=== PATIENT | female | born 1970 | race Caucasian/White ===

== ENCOUNTER 2020-12-09 14:31 | Outpatient (REF) | payer OTHER, SELFPAY ==
--- NOTE | ~2020-12-09 | XR_ITS ---
EXAMINATION: XR CHEST CLINICAL INFORMATION: Acute bronchitis. COMPARISON: None TECHNIQUE: 2 views of the chest were obtained. FINDINGS: No significant abnormality is noted involving the heart, lungs, mediastinum, bony thorax or soft tissues. XR/XR chest 2V IMPRESSION: Unremarkable examination.
== END 2020-12-09 14:32 | disposition home or self-care (01) ==
LOC: HO.XRAY 14:31
PROVIDERS: PCP Physician Assistant; Visit Provider Physician Assistant
DX: J20.9 Acute bronchitis, unspecified (principal)
CPT/HCPCS: 71046

== ENCOUNTER → 2021-11-03 14:39 | Outpatient (BNVA) | payer OTHER, SELFPAY | PROVIDERS: PCP Physician Assistant; Visit Provider Physician Assistant | DX: R11.0 Nausea (principal); K21.9 Gastro-esophageal reflux disease without esophagitis; Z79.899 Other long term (current) drug therapy | CPT/HCPCS: 99202 ==

== ENCOUNTER 2022-06-02 11:02 | Outpatient (REF) | payer OTHER, SELFPAY ==
[2022-06-02 12:25] LABS: Hematocrit 37.6 % (37.0-47.0); Hemoglobin 12.1 g/dl (12.0-16.0); Mean Corpuscular HGB Conc 32.2 g/dl (31.0-35.0); Mean Corpuscular Hemoglobin 26.5 pg (27.0-33.0); Mean Corpuscular Volume 82.3 fL (80.0-98.0); Mean Platelet Volume 9.4 fL (9.4-12.3); Platelet Count 426 X10*3/uL (160-400); Red Blood Count 4.57 X10*6/uL (4.20-5.50); Red Cell Distribution Width 14.5 % (11.0-16.0); White Blood Count 9.3 X10*3/uL (4.8-10.8)
[2022-06-02 12:37] LABS: Estimated Average Glucose 134 mg/dL; Hemoglobin A1c % 6.3 %
[2022-06-02 12:55] LABS: Creatinine Urine 139.49 mg/dL; Microalbum/Creatinine Ratio Ur 8.6 ug/mg cr
[2022-06-02 13:07] LABS: Erythrocyte Sedimentation Rate 8 MM/HR (0-20)
[2022-06-02 13:08] LABS: Alanine Aminotransferase 9 U/L (0-31); Albumin Level 4.1 g/dL (3.5-5.0); Alkaline Phosphatase 65 U/L (39-117); Anion Gap 15 (12-20); Aspartate Amino Transferase 15 U/L (5-31); Bilirubin Total 0.6 mg/dL (0.0-1.0); Blood Urea Nitrogen 39 mg/dL (9-16); Calcium 9.3 mg/dL (8.4-10.2); Carbon Dioxide 24 mmol/L (22-29); Chloride 105 mmol/L (96-108); Cholesterol 156 mg/dL; Estimated Glomerular Filt Rate 34; Glucose Fasting 150 mg/dL (60-99); HDL Cholesterol 47 mg/dL; LDL Cholesterol Calculated 94 mg/dl; Potassium 4.7 mmol/L (3.3-5.1); Sodium 139 mmol/L (135-145); Total Protein 6.5 g/dL (6.5-8.0); Triglycerides 77 mg/dL
[2022-06-02 13:14] LABS: TSH reflex Free T4 0.55 uIU/mL (0.32-4.0)
[2022-06-07 14:09] LABS: Transglutaminase Ab IgG <1.0 U/mL; Transglutaminase IgA <1.0 U/mL
== END 2022-06-02 11:03 | disposition home or self-care (01) ==
LOC: HO.LAB 11:02
PROVIDERS: PCP Physician Assistant; Visit Provider Physician Assistant
DX: E11.9 Type 2 diabetes mellitus without complications (principal); R10.2 Pelvic and perineal pain; K52.9 Noninfective gastroenteritis and colitis, unspecified; R14.0 Abdominal distension (gaseous)
CPT/HCPCS: 36415; 80053; 80061; 82043; 83036; 84443; 85027; 85652; 86364

== ENCOUNTER 2022-06-07 11:45 | Outpatient (REF) | payer OTHER, SELFPAY | END 2022-06-07 11:46 | disposition home or self-care (01) | LOC: HO.LNP 11:45 | PROVIDERS: Visit Provider Physician Assistant | DX: Z13.89 Encounter for screening for other disorder (principal) ==

== ENCOUNTER 2022-07-26 14:21 | Outpatient (REF) | payer OTHER, SELFPAY ==
[2022-07-26 16:43] LABS: Anion Gap 17 (12-20); Blood Urea Nitrogen 22 mg/dL (9-16); Calcium 9.9 mg/dL (8.4-10.2); Carbon Dioxide 23 mmol/L (22-29); Chloride 104 mmol/L (96-108); Estimated Glomerular Filt Rate 51; Glucose Random 127 mg/dL (60-115); Potassium 4.4 mmol/L (3.3-5.1); Sodium 140 mmol/L (135-145)
== END 2022-07-26 14:22 | disposition home or self-care (01) ==
LOC: HO.LAB 14:21
PROVIDERS: PCP Physician Assistant; Visit Provider Physician Assistant
DX: N17.9 Acute kidney failure, unspecified (principal)
CPT/HCPCS: 36415; 80048

== ENCOUNTER 2022-07-27 09:07 | Outpatient (REF) | payer OTHER, SELFPAY ==
--- NOTE | ~2022-07-27 | CT_ITS ---
EXAMINATION: CT ABDOMEN AND PELVIS WITH CONTRAST CLINICAL INFORMATION: Pelvic and perineal pain COMPARISON: Abdominal ultrasound September 2019 TECHNIQUE: Multidetector volumetric images were obtained from the superior aspect of the liver through the pubic symphysis following administration 85 mL of Omnipaque 350 intravenous contrast. Sagittal and coronal reformatted images were obtained on the technologist's workstation. Oral contrast: Yes This CT examination was performed using dose optimization techniques as appropriate, variously including the following: *Automated exposure control *Adjustment of mA and/or kV according to patient size (this includes techniques or standardized protocols for targeted exams where dose is matched to indication/reason for exam; i.e. extremities or head) *Use of iterative reconstruction technique DLP: 534 mGy-cm FINDINGS: LUNG BASES: The visualized lung bases are unremarkable. LIVER, GALLBLADDER, AND BILIARY TREE: The liver is normal in size, shape, and attenuation. No focal hepatic lesion or biliary ductal dilatation is present. The gallbladder has been removed. PANCREAS: Unremarkable. SPLEEN: Unremarkable. ADRENAL GLANDS: Unremarkable. KIDNEYS AND URETERS: The kidneys are normal in size, shape, and attenuation. No hydronephrosis, hydroureter, or calculi seen. No perinephric stranding. BLADDER: Not optimally distended. GASTROINTESTINAL TRACT: The small and large bowel are unremarkable. The appendix is not seen. No inflammatory changes in the right lower quadrant. ABDOMINAL WALL: No significant hernia is appreciated. LYMPH NODES: Normal. VASCULAR: Unremarkable. PELVIC VISCERA: Enhancing 2 cm intramural lesion in the posterior uterine body probably representing a fibroid. Uterus and adnexa are otherwise unremarkable. OSSEOUS STRUCTURES: Mild curvature of the lumbar spine. Degenerative changes of the spine and sacrum are iliac joints and left hip joint. CT/CT abdomen pelvis w IV con IMPRESSION: Probable posterior uterine body 2 cm fibroid. Fleischner guidelines were followed.
[2022-07-27] MEDS: iohexoL 350 MG/ML 100 ML INFUS..BTL 85 ML IV (12:24)
[2022-07-27] MEDS: Barium Sulfate Oral (Berry) 450 ML ORAL.SUSP 900 ML PO (12:25)
== END 2022-07-27 09:08 | disposition home or self-care (01) ==
LOC: HO.CT 09:07
PROVIDERS: PCP Physician Assistant; Visit Provider Physician Assistant
DX: R10.2 Pelvic and perineal pain (principal); K52.9 Noninfective gastroenteritis and colitis, unspecified
CPT/HCPCS: 74177; Q9967

== ENCOUNTER 2022-08-11 12:25 | Outpatient (REF) | payer OTHER, SELFPAY ==
--- NOTE | ~2022-08-11 | XR_ITS ---
EXAMINATION: XR LUMBOSACRAL SPINE CLINICAL INFORMATION: Abdominal pain COMPARISON: None available. TECHNIQUE: Three views of the lumbosacral spine. FINDINGS: A rounded radiopaque density overlies the left lower quadrant of the abdomen. This is not seen on the lateral images and may be external to the patient. Right upper quad surgical clips. No fracture or subluxation. Vertebral body height and alignment maintained. Mild disc space narrowing at L4-L5 with facet arthropathy at the lower lumbar spine. Mild sclerosis along the sacroiliac joints. The sacrum appears intact. Normal bowel gas pattern. XR/XR lumbar spine 2-3V IMPRESSION: 1. Mild degenerative changes of the lower lumbar spine. 2. Mild sclerosis along the sacroiliac joints. This could be associated with sacroiliitis.
== END 2022-08-11 12:26 | disposition home or self-care (01) ==
LOC: HO.HMGCX 12:25
PROVIDERS: PCP Physician Assistant; Visit Provider Nurse Practitioner Family
DX: R10.9 Unspecified abdominal pain (principal); M54.50 Low back pain, unspecified
CPT/HCPCS: 72100

== ENCOUNTER 2022-08-11 12:27 | Outpatient (REF) | payer OTHER, SELFPAY ==
[2022-08-11 14:37] LABS: Appearance Urine Cloudy; Color Urine Yellow; Glucose Urine UA Negative (Negative); Leukocyte Esterase Urine Negative (Negative); Nitrite Urine Negative (Negative); Urine Blood Negative (Negative); Urine Ketones Negative (Negative); Urine Protein Negative (Neg-Trace)
== END 2022-08-11 12:28 | disposition home or self-care (01) ==
LOC: HO.LAB 12:27
PROVIDERS: Visit Provider Nurse Practitioner Family
DX: R10.9 Unspecified abdominal pain (principal); M54.50 Low back pain, unspecified
CPT/HCPCS: 81003

== ENCOUNTER → 2022-09-07 09:09 | Outpatient (BNVA) | payer OTHER, SELFPAY | PROVIDERS: PCP Physician Assistant; Visit Provider Anesthesiology | DX: M54.50 Low back pain, unspecified (principal); M53.3 Sacrococcygeal disorders, not elsewhere classified; M47.816 Spondylosis without myelopathy or radiculopathy, lumbar region; M41.56 Other secondary scoliosis, lumbar region | CPT/HCPCS: 99202 ==

== ENCOUNTER 2022-09-26 12:12 | Day surgery (SDC) | payer OTHER, SELFPAY ==
[2022-09-26 12:25] VITALS: BP 155/87; PULSE 97; RESP 16; TEMP 36.7; O2SAT 98; BMI 34.3
[2022-09-26] MEDS: Lactated Ringers 1,000 ML 100 ML IVCONT (12:36)
[2022-09-26 12:47] LABS: Glucose, Whole Blood 162 mg/dL (60-115)
--- NOTE | 2022-09-26 12:51 | MHC.SHP ---
Pre-Procedural Eval Section A Date of Service: 09/26/22 The patient is an INPATIENT: No The History & Physical has been completed within 30 days and I have reviewed it.: No Section B Chief Complaint: screening, GERD Relevant Family History (Specify if Yes): No Relevant Social History: Tobacco Use Present Medications: see Short Stay Collaborative assessment Medical History: Significant History (GERD, DM, Hypertension, PTSD) History of Previous Operations: Relevant previous surgery/procedure and date(s) (Hx of cholecystectomy) Allergies: Allergies Allergy/AdvReac Type Severity Reaction Status Date / Time amoxicillin [AMOXICILLIN] Allergy Severe Anaphylaxis Verified 09/26/22 12:41 aspirin [ASA] Allergy Severe RASH/FEVER/ Verified 09/26/22 12:41 VOMITING latex [LATEX] Allergy Severe Rash Verified 09/26/22 12:41 Penicillins [PENICILLINS] Allergy Severe Anaphylaxis Verified 09/26/22 12:41 sulfamethoxazole Allergy Severe Hives Verified 09/26/22 12:41 [From BACTRIM] trimethoprim [From BACTRIM] Allergy Severe Hives Verified 09/26/22 12:41 meloxicam AdvReac Intermediate GI side Verified 09/26/22 12:37 effects Review of Systems Sugical H&P ROS: Negative: Constitution, Cardiovascular, Respiratory and Gastrointestinal Exam Surgical H&P Exam: Normal: Heart, Normal: Lungs, Normal: Extremities and Normal: Abdomen Plan Diagnosis/Plan: Unchanged I have reviewed the history and physical and performed a pertinent physical examination on my patient. No changes have occurred unless specified. Time Spent With Patient Time: Total time managing care of this patient today ____ minutes.
--- NOTE | 2022-09-26 13:00 | P.CONAN_ITS ---
[facility] Active Problems Active Problems: All Active Problems (Updated 09/07/22 @ 09:49 by Reese Kwan MD) Dermatitis (Acute) Diabetes (Acute) HTN (hypertension) (Acute) PTSD (post-traumatic stress disorder) (Acute) DMII (diabetes mellitus, type 2) (Acute) Acute bronchitis (Acute) Tinea unguium (Acute) Herpes zoster (Acute) MDD (major depressive disorder), recurrent episode, moderate (Acute) JOSE ARMANDO (generalized anxiety disorder) (Acute) Obese (Acute) Left shoulder pain (Acute) Nausea (Acute) GERD (gastroesophageal reflux disease) (Acute) Bronchitis (Acute) Colon cancer screening (Acute) Perioral numbness (Acute) Jaw swelling (Acute) Chronic diarrhea (Acute) Pelvic pain (Acute) Dysphagia (Acute) MINNIE (acute kidney injury) (Acute) Flank pain (Acute) Lower back pain (Acute) Low back pain (Acute) Sacroiliac joint dysfunction of right side (Acute) Spondylosis without myelopathy or radiculopathy, lumbar region (Acute) Scoliosis of lumbar region due to degenerative disease of spine in adult (Acute) Atypical chest pain (Acute) Past Medical History Medical History (Updated 09/07/22 @ 09:49 by Reese Kwan MD) Atypical chest pain Sacroiliitis Family History Family History Father Hypertension Mother Diabetes Other Mental health disorder Family history of problems with anesthesia: No Surgical History Surgical History (Updated 09/26/22 @ 12:40 by Minna Bell) History of appendectomy Hx of cholecystectomy Tubal ligation status History of Problems with Anesthesia: No Social History Social History Housing: Apartment Alcohol intake: current Alcohol intake frequency: former alcohol drinker Patient Tobacco Use Status: Former Tobacco user Tobacco use type: Cigarette e-Cigarette/Vaping Use: Never Used Second Hand Smoke Exposure: No Use of substances other than those prescribed or required for medical reasons: Yes Substance Use Frequency: Occasionally Are you DNR?: No Advance Directives: No Advance Directives Information Provided: Yes Advance Directives on File: No service: No Current occupational status: disabled Cognitive needs: No Hearing needs: No Vision needs: Yes Meds Allergies Allergy/AdvReac Type Severity Reaction Status Date / Time amoxicillin [AMOXICILLIN] Allergy Severe Anaphylaxis Verified 09/26/22 12:41 aspirin [ASA] Allergy Severe RASH/FEVER/ Verified 09/26/22 12:41 VOMITING latex [LATEX] Allergy Severe Rash Verified 09/26/22 12:41 Penicillins [PENICILLINS] Allergy Severe Anaphylaxis Verified 09/26/22 12:41 sulfamethoxazole Allergy Severe Hives Verified 09/26/22 12:41 [From BACTRIM] trimethoprim [From BACTRIM] Allergy Severe Hives Verified 09/26/22 12:41 meloxicam AdvReac Intermediate GI side Verified 09/26/22 12:37 effects Active Medications: Current Medications Lactated Ringer's (Lr) 1,000 mls @ 100 mls/hr IVCONT .Q10H DWIGHT Last Admin: 09/26/22 12:36 Dose: 100 mls/hr Exam Exam Date and Time: September 26, 2022 1300 Height,Weight and Vital Signs: Height 4 ft 11 in Weight 77.111 kg Last Vital Signs Temp 98.1 F 09/26/22 12:25 Pulse 97 09/26/22 12:25 Resp 16 09/26/22 12:25 BP 155/87 H 09/26/22 12:25 Pulse Ox 98 09/26/22 12:25 O2 Del Method Room Air 09/26/22 12:25 Pertinent Lab Results Pertinent Lab Results: Laboratory Tests 09/26/22 12:35 POC Glucose 162 H Airway Mallampati Class: II TM Dist: >3cm Neck ROM: Full Heart: rrr Lungs: cta Assessment and Plan Assessment Anesthesia Assessment: Anesthesia Plan Discussed and Chart Reviewed Final Anesthetic Review Family History of Problems with Anesthesia: No History of Problems with Anesthesia: No NPO: Yes ASA Class: III Final Preanesthetic Review: No Changes in Pt Med Stat, Meds/Allgs Chart Reviewed and Consent Obtained/Reviewed Patient Risk: Intermediate Procedure Risk: Intermediate Anesthetic Plan Anesthetic Plan: MAC: and Neuraxial Block: Disposition: Standard PACU
--- NOTE | 2022-09-26 13:42 | W.PM.OPN ---
Operative Note Operative Note Date of Service: 09/26/22 Narrative: FLEXIBLE TRANSORAL UPPER GASTROINTESTINAL ENDOSCOPY WITH BIOPSIES AND COLONOSCOPY TILL CECUM WITH SNARE POLYPECTOMY Pre-op diagnosis: GERD, Gastritis Post-op diagnosis: GERD, gastritis, colon polyp, diverticulosis, hemorrhoids? Endoscopist:? Jeremiah Osorio MD Anesthesia:?MAC UPPER ENDOSCOPY Consent: Indications for the procedure and potential complications of bleeding, perforation, reaction to medications and missed diagnosis were discussed with the patient and informed consent was obtained. Instrument: Olympus GIF H 190 mid size upper endoscope Monitoring: Vital signs and clinical assessment, continuous EKG monitoring, Pulse oximetry, Carbon Dioxide monitoring and blood pressure monitoring were done throughout the procedure. Procedure: The patient was placed in the left lateral decubitis position and pre-procedure medications were administered and a bite block was placed. The endoscope was inserted into the mouth and advanced under direct vision to the third part of duodenum. A careful inspection was made as the upper endoscope was withdrawn including a retroflexed examination of the proximal stomach; Findings and interventions are described below. Findings: Larynx: Normal Esophagus: GE junction at 38 cms, Mild focal esophagitis at GE junction. Stomach: Mild gastric erythema. Biopsies were obtained. Grade 2 flap valve on retroflexed examination of the cardia. Duodenum: Normal bulb and descending duodenum. Biopsies were obtained from 3rd part of the duodenum to check for celiac sprue Intervention: Biopsies as noted above COLONOSCOPY PROCEDURE NOTE Consent: Indications for the procedure and potential complications of bleeding, perforation, reaction to medications and missed diagnosis were discussed with the patient and informed consent was obtained. Instrument: Olympus PCF H 190 L variable stiffness pediatric colonoscope Monitoring: Vital signs and clinical assessment, intermittent blood pressure monitoring, continuous EKG monitoring, Pulse oximetry and Carbon Dioxide monitoring were done throughout the procedure. Colon withdrawl time was 13 minutes. Procedure: The patient was placed in the left lateral decubitis position and pre-procedure medications were administered. After a digital rectal examination of the ano-rectum, the video colonoscope was inserted into the rectum and advanced through the colon to the cecum. The colonoscope was slowly withdrawn in a retrograde panoramic fashion and the colon mucosa was carefully examined including a retroflexed view of the rectum. Findings and interventions are described below. Procedure Difficulty: : Without difficulty Findings: Terminal Ileum: Not evaluated Cecum: Normal Ascending Colon: A 9-10 mm sessile polyp -removed with a cold snare Transverse Colon: Normal Descending Colon: Normal Sigmoid Colon: Moderate diverticulosis Rectum: A 2 cms sessile polyp in the distal rectum from 2 to 4 cms - removed with a hot snare. Ano-rectum: Moderate internal hemorrhoids Colon preparation: Good after some irrigation Impression and Post Procedure Diagnosis: Endoscopy Findings: ESOPHAGUS: Mild focal esophagitis at GE junction. STOMACH: Gastritis DUODENUM: Normal - biopsied to check for celiac sprue Colonoscopy Findings: Two medium sized polyps removed Random biopsies were obtained from right and left colon to check for microscopic colitis Moderate diverticulosis seen in the sigmoid colon Small hemorrhoids on retroflexed exam. Plan: Await pathology results Patient has an appointment on 10/11/22 in the GI Clinic with ABDIAZIZ Bonilla . Repeat Colonoscopy interval based on path results - in 3 years if polyps are adenomatous and 10 years if polyps are hyperplastic. Above findings were reviewed with the patient and colon polyps and diverticulosis handouts were given in the discharge area BIOPSIES SHOWED: A.? Small bowel, biopsy:? Small bowel mucosa within normal limits; preserved villous architecture and no increased intraepithelial lymphocytes seen.? B.? Stomach, antrum, biopsy:? Gastric antral mucosa with reactive gastropathy; negative for Helicobacter pylori, intestinal metaplasia and dysplasia. C.? Colon, right side, biopsy:? Colonic mucosa within normal limits; negative for active, chronic or microscopic colitis.? D.? Colon, ascending, polypectomy:? Tubular adenoma; negative for high-grade dysplasia.? E.? Colon, left side, biopsy:? Colonic mucosa within normal limits; negative for active, chronic or microscopic colitis.? F.? Rectum, polypectomy:? Tubular adenoma, completely excised; negative for high-grade dysplasia.
[2022-09-26 14:40] VITALS: BP 114/62; PULSE 84; RESP 16; TEMP 36.3; O2SAT 98
[2022-09-26 14:55] VITALS: BP 142/78; PULSE 78; RESP 18; TEMP 37; O2SAT 99
== END 2022-09-26 15:47 | disposition home or self-care (01) ==
PROVIDERS: PCP Physician Assistant; Visit Provider Internal Medicine Gastroenterology
PROC: (CPT 45380; principal; 2022-09-26 13:30)
DX: Z12.11 Encounter for screening for malignant neoplasm of colon (principal); D12.2 Benign neoplasm of ascending colon; D12.8 Benign neoplasm of rectum; K29.70 Gastritis, unspecified, without bleeding; K57.30 Diverticulosis of large intestine without perforation or abscess without bleeding; K64.8 Other hemorrhoids; K21.9 Gastro-esophageal reflux disease without esophagitis; R11.0 Nausea; E11.9 Type 2 diabetes mellitus without complications; I10 Essential (primary) hypertension; F17.210 Nicotine dependence, cigarettes, uncomplicated; Z90.49 Acquired absence of other specified parts of digestive tract; Z79.84 Long term (current) use of oral hypoglycemic drugs
CPT/HCPCS: 45380; 45385; 82947; 88305; 88342; J2250

== ENCOUNTER → 2022-09-26 12:12 | Outpatient (BNV) | payer OTHER, SELFPAY | PROVIDERS: PCP Physician Assistant; Visit Provider Internal Medicine Gastroenterology | DX: K21.9 Gastro-esophageal reflux disease without esophagitis (principal); K29.70 Gastritis, unspecified, without bleeding | CPT/HCPCS: 43239; 45385 ==

== ENCOUNTER 2022-11-01 11:02 | Outpatient (AMB) | payer OTHER, SELFPAY ==
--- NOTE | 2022-11-01 11:04 | MHC.OFFVIS ---
Intake Vital Signs 11/01/22 11:16 Height 4 ft 11 in Weight 174 lb BMI 35.1 BP 94/55 L Blood Pressure Location Lt brachial Position Sitting Pulse 96 Intake Visit Reasons: S/P double Intake Note: Patient follow up for lab, Colonoscopy and EGD results. Patient denies any GI issues. Hand Hardener Required: No Accompanied by: Self / Same As Patient Allergies amoxicillin [AMOXICILLIN] Allergy (Severe, Verified 11/01/22 11:04) Anaphylaxis aspirin [ASA] Allergy (Severe, Verified 11/01/22 11:04) RASH/FEVER/VOMITING latex [LATEX] Allergy (Severe, Verified 11/01/22 11:04) Rash Penicillins [PENICILLINS] Allergy (Severe, Verified 11/01/22 11:04) Anaphylaxis sulfamethoxazole [From BACTRIM] Allergy (Severe, Verified 11/01/22 11:04) Hives trimethoprim [From BACTRIM] Allergy (Severe, Verified 11/01/22 11:04) Hives meloxicam Adverse Reaction (Intermediate, Verified 11/01/22 11:04) GI side effects Medication List - Last Reconciled 11/01/22 by Donna Stanley PA-C atorvastatin 40 mg PO DAILY blood sugar diagnostic (FreeStyle Lite Strips) 1 strip miscellaneous BID 30 days cholestyramine-aspartame 4 gram (Cholestyramine Light) 4 grams PO TID 30 days clonidine HCl 0.1 mg PO BID cyclobenzaprine 10 mg PO TID PRN lancets (FreeStyle Lancets) once per day lisinopril-hydrochlorothiazide 20-12.5 mg 1 tab PO DAILY metformin 500 mg PO BID 90 days ondansetron HCl 4 mg PO Q8H 7 days pioglitazone 15 mg PO DAILY quetiapine 25 mg PO DAILY quetiapine 100 mg PO BEDTIME tizanidine 2 mg PO Q8H 30 days HPI HPI Comments History of Present Illness Details A 52-year-old female follows up after recent EGD colonoscopy with Dr. Osorio tolerated procedures well Appetite is good, she is not taking anything for acid reflux her symptoms have completely resolved.- bowels are normal, she had had loose stool she thinks may be from metformin she is now taking cholestyramine with very good response Review procedure report and pathology No nausea, vomiting, hematemesis, hematochezia fever to [facility] Medical History (Updated 11/01/22 @ 11:41 by Donna Stanley PA-C) Atypical chest pain Sacroiliitis Surgical History History of appendectomy History of esophagogastroduodenoscopy (EGD) Hx of cholecystectomy Hx of colonoscopy Tubal ligation status Family History Father Hypertension Mother Diabetes Other Mental health disorder Social History Housing: Apartment Alcohol intake: current Alcohol intake frequency: former alcohol drinker Patient Tobacco Use Status: Former Tobacco user Tobacco use type: Cigarette e-Cigarette/Vaping Use: Never Used Second Hand Smoke Exposure: No service: No Current occupational status: disabled Cognitive needs: No Hearing needs: No Vision needs: Yes Review of Systems Const All systems reviewed & are unremarkable except as noted in HPI and below Card Denies chest pain and Denies dyspnea Resp Denies dyspnea Physical Exam Vital Signs: Last Vital Signs Pulse 96 11/01/22 11:16 BP 94/55 L 11/01/22 11:16 BMI result Body Mass Index 35.1 Const General: cooperative, healthy appearing, comfortable, no acute distress and anxious Orientation/consciousness: patient oriented x3 Limitations: no limitations Eyes Sclerae: sclerae normal Resp Effort & Inspection: normal respiratory effort and able to speak in complete sentences Auscultation: clear to auscultation bilaterally Cardio Rate: regular rate Rhythm: regular rhythm Heart sounds: S1 normal heart sound present and S2 normal heart sound present GI Palpation (GI): Soft to palpation and nontender Auscultation: normal bowel sounds Skin General skin exam: no rashes or lesions noted Neuro General: patient oriented x3 Extrem General: Yes full ROM Psych Mental Status: mental status grossly normal Speech and movement: Clear speech present Affect: normal affect Attitude: cooperative Thought process: Normal thought process present Thought content: Normal thought content present Insight: Good insight present (Psych) Judgement: Good judgement present (Psych) Results Reviewed Results Reviewed: indings: Terminal Ileum: Not evaluated Cecum:? Normal Ascending Colon:??A 9-10 mm sessile polyp -removed with a cold snare Transverse Colon:??Normal Descending Colon:? Normal Sigmoid Colon:??Moderate diverticulosis Rectum:??A 2 cms sessile polyp in the distal rectum from 2 to 4 cms - removed with a hot snare. Ano-rectum:??Moderate internal hemorrhoids Colon preparation:? Good after some irrigation Impression and Post Procedure Diagnosis: ? ? Endoscopy Findings: ESOPHAGUS: Mild focal esophagitis at GE junction. STOMACH: Gastritis DUODENUM: Normal - biopsied to check for celiac sprue Colonoscopy Findings: Two medium sized polyps removed Random biopsies were obtained from right and left colon to check for microscopic colitis Moderate diverticulosis seen in the sigmoid colon Small hemorrhoids on retroflexed exam. Plan: Await pathology results Patient has an appointment on 10/11/22 in the GI Clinic with ABDIAZIZ Bonilla . Repeat Colonoscopy interval based on path results - in 3 years if polyps are adenomatous and 10 years if polyps are hyperplastic. Above findings were reviewed with the patient and colon polyps and diverticulosis handouts were given in the discharge area BIOPSIES SHOWED: A.? Small bowel, biopsy:? Small bowel mucosa within normal limits; preserved villous architecture and no increased intraepithelial lymphocytes seen.? B.? Stomach, antrum, biopsy:? Gastric antral mucosa with reactive gastropathy; negative for Helicobacter pylori, intestinal metaplasia and dysplasia. C.? Colon, right side, biopsy:? Colonic mucosa within normal limits; negative for active, chronic or microscopic colitis.? D.? Colon, ascending, polypectomy:? Tubular adenoma; negative for high-grade dysplasia.? E.? Colon, left side, biopsy:? Colonic mucosa within normal limits; negative for active, chronic or microscopic colitis.? F.? Rectum, polypectomy:? Tubular adenoma, completely excised; negative for high-grade dysplasia. Assessment & Plan Assessment & Plan (1) Tubular adenoma of colon: Code(s): D12.6 - Benign neoplasm of colon, unspecified Plan: Repeat asymptomatic colonoscopy 3 years (2) Diverticular disease: Comment: Educate diverticulosis/diverticulitis Code(s): K57.90 - Diverticulosis of intestine, part unspecified, without perforation or abscess without bleeding Plan: Diverticulosis/diverticulitis ER protocol (3) Hemorrhoids: Code(s): K64.9 - Unspecified hemorrhoids Plan: Maintain high-fiber diet avoid straining Patient Instructions: Asymptomatic colonoscopy 3 years-for adenomas colon polyp All first-degree relatives should begin screening at age 40 Avoid straining with hemorrhoids, maintain high-fiber diet-literature given Diverticulosis/diverticulitis ER protocol discussed Continue usual medication Coding Level of Care Code Est Pt Level 3 (47864) Diagnoses Tubular adenoma of colon D12.6 Diverticular disease K57.90 Hemorrhoids K64.9 Time Spent (min) 30
[2022-11-01 11:16] VITALS: BP 94/55; PULSE 96; BMI 35.1
== END 2022-11-01 11:31 | disposition home or self-care (01) ==
LOC: HO.HGIW 11:02
PROVIDERS: PCP Physician Assistant; Visit Provider Physician Assistant
DX: D12.6 Benign neoplasm of colon, unspecified (principal); K57.90 Diverticulosis of intestine, part unspecified, without perforation or abscess without bleeding; K64.9 Unspecified hemorrhoids
CPT/HCPCS: 99213

== ENCOUNTER → 2022-11-01 11:02 | Outpatient (BNVA) | payer OTHER, SELFPAY | PROVIDERS: PCP Physician Assistant; Visit Provider Physician Assistant | DX: K57.90 Diverticulosis of intestine, part unspecified, without perforation or abscess without bleeding (principal); K64.9 Unspecified hemorrhoids; D12.6 Benign neoplasm of colon, unspecified | CPT/HCPCS: 99212 ==

== ENCOUNTER 2022-12-20 13:14 | Outpatient (AMB) | payer OTHER, SELFPAY ==
--- NOTE | 2022-12-20 13:16 | MHC.OFFVIS ---
Intake Vital Signs 12/20/22 13:17 Height 4 ft 11 in Weight 174 lb BMI 35.1 BP 124/61 Blood Pressure Location Lt brachial Position Sitting Pulse 91 Intake Visit Reasons: pt req appointment Intake Note: Patient follow up for swallowing problem Patient cc: acid reflex, abdominal pain on and off, and some swallowing problems. Orthopedics Pediatric Physician Required: No Accompanied by: Self / Same As Patient Allergies amoxicillin [AMOXICILLIN] Allergy (Severe, Verified 12/20/22 13:15) Anaphylaxis aspirin [ASA] Allergy (Severe, Verified 12/20/22 13:15) RASH/FEVER/VOMITING latex [LATEX] Allergy (Severe, Verified 12/20/22 13:15) Rash Penicillins [PENICILLINS] Allergy (Severe, Verified 12/20/22 13:15) Anaphylaxis sulfamethoxazole [From BACTRIM] Allergy (Severe, Verified 12/20/22 13:15) Hives trimethoprim [From BACTRIM] Allergy (Severe, Verified 12/20/22 13:15) Hives meloxicam Adverse Reaction (Intermediate, Verified 12/20/22 13:15) GI side effects Medication List - Last Reconciled 12/20/22 by Donna Stanley PA-C atorvastatin 40 mg PO DAILY blood sugar diagnostic (FreeStyle Lite Strips) 1 strip miscellaneous BID 30 days cholestyramine-aspartame 4 gram (Cholestyramine Light) 4 grams PO TID 30 days clonidine HCl 0.1 mg PO BID cyclobenzaprine 10 mg PO TID PRN lancets (FreeStyle Lancets) once per day lisinopril-hydrochlorothiazide 20-12.5 mg 1 tab PO DAILY metformin 500 mg PO BID 90 days ondansetron HCl 4 mg PO Q8H 7 days pioglitazone 15 mg PO DAILY quetiapine 25 mg PO DAILY quetiapine 100 mg PO BEDTIME tizanidine 2 mg PO Q8H 30 days HPI HPI Comments History of Present Illness Details 52-year-old female here to follow-up after going to emergency room with abdominal pain-entire belly. Admitted at [facility]- 11/22/22-she had a colonoscopy- was told she had something that was now fixed- I was in so much pain Look not trying to give you a hard time but Im having a bad day all the information is in my paperwork- I dont have with me I am hopeless She went into details of frustrating encounters- with housing- no family support. Appetite is ok Bowels are fine Was given medicine - a powder- Last seen October 2022 after having EGD colonoscopy in 09/2022 [facility] Medical History Sacroiliitis Atypical chest pain Surgical History History of esophagogastroduodenoscopy (EGD) Hx of colonoscopy Tubal ligation status History of appendectomy Hx of cholecystectomy Family History Father Hypertension Mother Diabetes Other Mental health disorder Social History Housing: Apartment Alcohol intake: current Alcohol intake frequency: former alcohol drinker Patient Tobacco Use Status: Former Tobacco user Tobacco use type: Cigarette e-Cigarette/Vaping Use: Never Used Second Hand Smoke Exposure: No service: No Current occupational status: disabled Cognitive needs: No Hearing needs: No Vision needs: Yes Review of Systems Const All systems reviewed & are unremarkable except as noted in HPI and below Denies chills and Denies fever(s) Card Denies chest pain and Denies dyspnea Resp Denies dyspnea GI Denies abdominal pain, Denies heartburn and Denies vomiting Musc Reports back pain Psych Reports anxiety, Reports depression, Reports irritability, Denies homicidal ideation and Denies suicidal ideation Physical Exam Vital Signs: Last Vital Signs Pulse 91 12/20/22 13:17 BP 124/61 12/20/22 13:17 BMI result Body Mass Index 35.1 Const General: anxious Nutritional Appearance: overweight Orientation/consciousness: patient oriented x3 Eyes Sclerae: sclerae normal Resp Effort & Inspection: normal respiratory effort and able to speak in complete sentences Neuro General: patient oriented x3 Extrem General: Yes full ROM Psych Speech and movement: Pressured speech present Affect: Anxious affect present and Irritable affect present Thought content: suicidality and no homicidality Results Reviewed Results Reviewed: 11/22/22- [facility] Abdominal CT 1. Findings highly suspicious for early small-bowel obstruction or ileus secondary to terminal ileus 2. Small volume abdominal pelvic ascites 3. Intrahepatic biliary ductal dilation with normal caliber common bile duct could be due to post cholecystectomy state. If the patient has obstructive biochemical pattern follow-up with MRCP may be considered. 09/26/2022- Impression and Post Procedure Diagnosis: ? ? Endoscopy Findings: ESOPHAGUS: Mild focal esophagitis at GE junction. STOMACH: Gastritis DUODENUM: Normal - biopsied to check for celiac sprue Colonoscopy Findings: Two medium sized polyps removed Random biopsies were obtained from right and left colon to check for microscopic colitis Moderate diverticulosis seen in the sigmoid colon Small hemorrhoids on retroflexed exam. Plan: Await pathology results Patient has an appointment on 10/11/22 in the GI Clinic with ABDIAZIZ Bonilla . Repeat Colonoscopy interval based on path results - in 3 years if polyps are adenomatous and 10 years if polyps are hyperplastic. Above findings were reviewed with the patient and colon polyps and diverticulosis handouts were given in the discharge area BIOPSIES SHOWED: A.? Small bowel, biopsy:? Small bowel mucosa within normal limits; preserved villous architecture and no increased intraepithelial lymphocytes seen.? B.? Stomach, antrum, biopsy:? Gastric antral mucosa with reactive gastropathy; negative for Helicobacter pylori, intestinal metaplasia and dysplasia. C.? Colon, right side, biopsy:? Colonic mucosa within normal limits; negative for active, chronic or microscopic colitis.? D.? Colon, ascending, polypectomy:? Tubular adenoma; negative for high-grade dysplasia.? E.? Colon, left side, biopsy:? Colonic mucosa within normal limits; negative for active, chronic or microscopic colitis.? F.? Rectum, polypectomy:? Tubular adenoma, completely excised; negative for high-grade dysplasia. Assessment & Plan Assessment & Plan (1) Hospital discharge follow-up: Comment: Completely asymptomatic-no GI concerns-unsure of what testing she had completed Noted CT, not sure anything to follow Hospital course is unclear, no record for reference will attempt to get them reviewed discharge note Consulted with Vj Patel-the Community Health Worker Code(s): Z09 - Encounter for follow-up examination after completed treatment for conditions other than malignant neoplasm Plan: Will follow-up had a later time. Discussed -need for assistance Escorted to Vj Patel-as his expertise will serve her well (2) Homeless: Comment: Patient seen after hospital discharge for abdominal pain she was unable to focus on visit She reportedly asymptomatic Reviewing discharge note patient is not interested in any further follow-up at this time Consulted with check Patel community health worker Code(s): Z59.00 - Homelessness unspecified Plan: She will be connected with [facility] at her PCP office Plan Will reschedule patient appointment Need records from [facility] Patient Instructions: A 52-year-old female follows up after recent hospital admission at [facility] for abdominal pain She reports did may had a colonoscopy that was normal range, reviewed hospital note Unable to complete visit today will have her follow-up. Coding Level of Care Code Est Pt Level 4 (41976) Diagnoses Hospital discharge follow-up Z09 Homeless Z59.00 Time Spent (min) 50
[2022-12-20 13:17] VITALS: BP 124/61; PULSE 91; BMI 35.1
== END 2022-12-21 13:13 | disposition home or self-care (01) ==
LOC: HO.HGIW 13:15
PROVIDERS: PCP Physician Assistant; Visit Provider Physician Assistant
DX: Z09 Encounter for follow-up examination after completed treatment for conditions other than malignant neoplasm (principal); Z59.00 Homelessness unspecified
CPT/HCPCS: 99214

== ENCOUNTER → 2022-12-20 13:14 | Outpatient (BNVA) | payer OTHER, SELFPAY | PROVIDERS: PCP Physician Assistant; Visit Provider Physician Assistant | DX: Z09 Encounter for follow-up examination after completed treatment for conditions other than malignant neoplasm (principal); Z59.00 Homelessness unspecified | CPT/HCPCS: 99212 ==

== ENCOUNTER 2023-02-22 13:28 | Outpatient (AMB) | payer OTHER, SELFPAY ==
[2023-02-22 13:39] VITALS: BP 102/70; PULSE 117; RESP 17; O2SAT 98; BMI 37.2
--- NOTE | 2023-02-22 13:39 | MHC.PC.OV ---
Vital Signs 02/22/23 13:39 Height 4 ft 11 in Weight 184 lb 4 oz BMI 37.2 BP 102/70 Blood Pressure Location Lt brachial Position Sitting Respiration 17 Pulse 117 H Pulse Source Pulse Oximeter Pulse Oximetry (%) 98 Oxygen Delivery Method Room Air Int[place] [facility] [place] Intake Note: Patient is here for hospital discharge follow up. Patient was discharged from [facility] on 11/26/22. Sales Order Specialist Required: No Accompanied by: Self / Same As Patient Allergies amoxicillin [AMOXICILLIN] Allergy (Severe, Verified 02/22/23 14:00) Anaphylaxis aspirin [ASA] Allergy (Severe, Verified 02/22/23 14:00) RASH/FEVER/VOMITING latex [LATEX] Allergy (Severe, Verified 02/22/23 14:00) Rash Penicillins [PENICILLINS] Allergy (Severe, Verified 02/22/23 14:00) Anaphylaxis sulfamethoxazole [From BACTRIM] Allergy (Severe, Verified 02/22/23 14:00) Hives trimethoprim [From BACTRIM] Allergy (Severe, Verified 02/22/23 14:00) Hives meloxicam Adverse Reaction (Intermediate, Verified 02/22/23 14:00) GI side effects Medication List - Last Reconciled 02/22/23 by Cristofer Walker PA-C atorvastatin 40 mg PO DAILY blood sugar diagnostic (FreeStyle Lite Strips) 1 strip miscellaneous BID 30 days clonidine HCl 0.1 mg PO BID cyclobenzaprine 10 mg PO TID PRN lancets (FreeStyle Lancets) once per day lisinopril-hydrochlorothiazide 20-12.5 mg 1 tab PO DAILY metformin 500 mg PO BID 90 days ondansetron HCl 4 mg PO Q8H 7 days pioglitazone 15 mg PO DAILY quetiapine 25 mg PO DAILY quetiapine 100 mg PO BEDTIME tizanidine 2 mg PO Q8H 30 days Tobacco use date assessed: 06/02/22 Dental Screening Dental Screen Date: 02/22/23 Did you have a dental visit in the last 12 months?: Yes Did you have a dental problem in the last 6 months where you did not have access to dental care?: No Was dental information given to patient?: Patient has dentist [place] [facility] [place] HPI Details Patient is a 52 y/o F for a follow-up visit. ? Pmhx significant for DM II, HLD, Type 2 DM, , obesity, bipolar type 2 disorder, history of polysubstance abuse. Recently underwent colonoscopy and, multiple polyps found a tubular normal repeat 3 years. She did have a SBO in november 2022. Abdominal pain much better now ?. ? .. ? Diabetes type 2:? Today's A1c is 6 9. Has gained weight since last office visit .? Continues on metformin and pioglitazone with good effect. . Patient reports she is compliant with her medication. Has not gotten her A1c checked in quite a while. .. : Obesity: Patient does understand her BMI is over 30 will work on being more physically active and adapting to better eating habits to reduce her weight ? .. ? Bipolar disorder: Patient is followed by a therapist and a psychiatrist and believes her mood is somewhat stable though still is making med adjustments with her psychiatrist. [facility] Medical History Sacroiliitis Atypical chest pain Surgical History History of esophagogastroduodenoscopy (EGD) Hx of colonoscopy Tubal ligation status History of appendectomy Hx of cholecystectomy Family History Father Hypertension Mother Diabetes Other Mental health disorder Social History Housing: Apartment Alcohol intake: current Alcohol intake frequency: former alcohol drinker Patient Tobacco Use Status: Former Tobacco user Tobacco use type: Cigarette e-Cigarette/Vaping Use: Never Used Second Hand Smoke Exposure: No service: No Current occupational status: disabled Cognitive needs: No Hearing needs: No Vision needs: Yes Questionnaire Thrive Questionnaire Date Thrive assessed: 06/02/22 JOSE ARMANDO-7 AMB Questionnaire JOSE ARMANDO-7 Date JOSE ARMANDO - 7 assessed: 06/02/22 Source: Developed by Drs. Uri Lugo, Ewelina Eric, Pantera Alcala and colleagues, with an educational durga from [employer] Review of Systems Const Denies headache(s) Eyes Denies loss of vision ENT Denies vertigo, Denies dizziness, Denies headache(s) and Denies sore throat Card Denies chest pain, Denies leg edema and Denies lightheadedness Resp Denies cough, Denies hemoptysis and Denies wheezing GI Denies abdominal pain, Denies melena, Denies constipation, Denies diarrhea and Denies vomiting Denies urinary frequency, Denies dysuria and Denies urinary urgency Musc Denies arthralgias, Denies joint swelling, Denies numbness and Denies tingling Neuro Denies Abnormal speech present, Denies behavioral changes, Denies vertigo, Denies dizziness, Denies headache(s), Denies loss of vision, Denies memory loss, Denies numbness and Denies tingling Psych Denies anxiety, Denies behavioral changes, Denies depression, Denies memory loss and Denies panic attacks Tarun/Lymph Denies easy bleeding and Denies easy bruising Aller/Immun Denies wheezing Physical exam (Primary Care) Vital Signs: Last Vital Signs Pulse 117 H 02/22/23 13:39 Resp 17 02/22/23 13:39 BP 102/70 02/22/23 13:39 Pulse Ox 98 02/22/23 13:39 Oxygen Delivery Method Room Air 02/22/23 13:39 BMI result Body Mass Index 37.2 Tobacco/Smoking Status: Tobacco use Status Tobacco use date assessed 06/02/22 02/22/23 13:45 Patient Tobacco Use Status Former Tobacco user 02/22/23 13:45 Tobacco use type Cigarette 02/22/23 13:45 e-Cigarette/Vaping Use Never Used 02/22/23 13:45 Thrive Assessment: Date of Thrive Assessment Date Thrive assessed 06/02/22 02/22/23 13:45 Const General: healthy appearing, no acute distress, alert and awake Nutritional Appearance: well nourished Orientation/consciousness: oriented to person, oriented to place and oriented to time HENMT Ears: TM's normal bilaterally General nose exam: Normal nasal mucous membranes and turbinates present Eyes Conjunctivae: conjunctivae normal Sclerae: sclerae normal Pupils: Equal, round and reactive pupils present Neck Neck: Yes no lymphadenopathy and Yes no JVD Thyroid: Thyroid normal Carotids: no bruits Resp Effort & Inspection: normal respiratory effort and not tachypneic Auscultation: no crackles, no rales, no rhonchi and no wheezes Cardio Rate: regular rate Rhythm: regular rhythm Heart sounds: no murmurs and normal S1 and S2 GI Palpation (GI): Soft to palpation, nontender, no hepatomegaly and no splenomegaly Auscultation: normal bowel sounds Skin General skin exam: no rashes or lesions noted and dry skin Neuro General: oriented to person, oriented to place and oriented to time Cranial nerves: Yes Equal, round and reactive pupils present Speech: No Abnormal speech present Gait exam (Neuro): Normal gait present Motor exam (neuro): no tremor noted Extrem Right upper extremity: full ROM Left upper extremity: full ROM Right lower extremity: full ROM; no edema Left lower extremity: full ROM; no edema Psych Mental Status: mental status grossly normal Speech and movement: Normal speech and movement present Affect: normal affect Attitude: cooperative Thought process: Normal thought process present Results AMB Hemoglobin A1c AMB Hemoglobin A1c 6.9 % Last Edit by SHANNON Calvillo on 02/22/23 13:48 Results Reviewed Results Reviewed: Laboratory Last Values Hgb A1c (Clinic) 6.9 % (4.0-6.0) H 02/22/23 13:32 Assessment and Plan Assessment & Plan (1) DMII (diabetes mellitus, type 2): Code(s): E11.9 - Type 2 diabetes mellitus without complications Qualifiers: Diabetes mellitus joint terminal attack controller insulin use: without joint terminal attack controller use Diabetes mellitus complication status: without complication Qualified Code(s): E11.9 - Type 2 diabetes mellitus without complications Plan: Patient's type 2 diabetes previously well controlled. todays A1c- 6.9. Continues on metformin and pioglitazone. Goal A1c is to remain below 7.0. (2) HTN (hypertension): Code(s): I10 - Essential (primary) hypertension Qualifiers: Hypertension type: essential hypertension Qualified Code(s): I10 - Essential (primary) hypertension Plan: Patient's blood pressure acceptable today in office will continue her current dose of antihypertensive medication with goal blood pressure to be below 140/90 (3) Obese: Code(s): E66.9 - Obesity, unspecified Qualifiers: Obesity type: due to excess calories Obesity classification: adult class 2 (BMI 35 - 39.9) Serious obesity comorbidity presence: with serious comorbidity Body mass index: BMI 37.0-37.9 Qualified Code(s): E66.01 - Morbid (severe) obesity due to excess calories; Z68.37 - Body mass index [BMI] 37.0-37.9, adult Plan: Patient does understand her BMI is over 30 will work on being more physically active and adapting to better eating habits to reduce her weight. (4) MDD (major depressive disorder), recurrent episode, moderate: Code(s): F33.1 - Major depressive disorder, recurrent, moderate Plan: Patient continues to speak with a mental therapist and sees a psychiatrist whom manages her mental health medication. She feels stable for mental health point of view. Orders: Orders Comprehensive [place]. Panel Fast Today E11.9 - Type 2 diabetes mellitus without complications Complete Blood Count no Diff Today E11.9 - Type 2 diabetes mellitus without complications Microalbumin, Random (w Creat) Today I10 - Essential (primary) hypertension PT Evaluation and Treatment Today M54.50 - Low back pain, unspecified AMB Hemoglobin A1c Today E11.9 - Type 2 diabetes mellitus without complications Lipid Panel Today E11.9 - Type 2 diabetes mellitus without complications Medications: Changed From blood sugar diagnostic (FreeStyle Lite Strips) 1 strip miscellaneous BID 30 days 200 strips 3RF E11.9 - Type 2 diabetes mellitus without complications To blood sugar diagnostic (FreeStyle Lite Strips) 1 strip miscellaneous DAILY 90 days 100 strips 3RF E11.9 - Type 2 diabetes mellitus without complications Refilled lancets (FreeStyle Lancets) once per day 100 ea 3RF E11.9 - Type 2 diabetes mellitus without complications Discontinued cholestyramine-aspartame 4 gram (Cholestyramine Light) administer w/meal; avoid other meds within 1hr before or 4-6hr after dose Discontinued Reason: Doctor's Order 4 grams PO TID 30 days 239.4 grams 0RF K52.9 - Noninfective gastroenteritis and colitis, unspecified Coding Level of Care Code Est Pt Level 4 (77537) Diagnoses Type 2 diabetes mellitus without complication, without long-term current use of insulin E11.9 Diabetes mellitus joint terminal attack controller insulin use: without long-term use Diabetes mellitus complication status: without complication Essential hypertension I10 Hypertension type: essential hypertension Class 2 severe obesity due to excess calories with serious comorbidity and body mass index (BMI) of 37.0 to 37.9 in adult E66.01; Z68.37 Obesity type: due to excess calories Obesity classification: adult class 2 (BMI 35 - 39.9) Serious obesity comorbidity presence: with serious comorbidity Body mass index: BMI 37.0-37.9 MDD (major depressive disorder), recurrent episode, moderate F33.1
== END 2023-02-22 14:12 | disposition home or self-care (01) ==
PROVIDERS: PCP Physician Assistant; Visit Provider Physician Assistant
DX: E11.9 Type 2 diabetes mellitus without complications (principal); E66.01 Morbid (severe) obesity due to excess calories; Z68.37 Body mass index [BMI] 37.0-37.9, adult; F33.1 Major depressive disorder, recurrent, moderate; I10 Essential (primary) hypertension
CPT/HCPCS: 83036; 99214

== ENCOUNTER 2023-04-05 09:55 | Outpatient (AMB) | payer OTHER, SELFPAY ==
--- NOTE | 2023-04-05 11:11 | AM.OFFWIN_ITS ---
Intake Vital Signs 04/05/23 11:13 Height 4 ft 11 in Weight 184 lb BMI 37.2 BP 110/70 Blood Pressure Location Lt brachial Position Sitting Pulse 80 Pulse Source Pulse Oximeter Temp 98.0 F Temp Source Temporal Artery Scan Pulse Oximetry (%) 97 Intake Visit Reasons: EP problems swallowing masked in lobby Intake Note: pt is here for c.o swallowing and states it was coming back up after drinking and eating food and states she was having bad heart burn Patient Tobacco Use Status: Former Tobacco user Allergies amoxicillin [AMOXICILLIN] Allergy (Severe, Verified 04/05/23 11:47) Anaphylaxis aspirin [ASA] Allergy (Severe, Verified 04/05/23 11:47) RASH/FEVER/VOMITING latex [LATEX] Allergy (Severe, Verified 04/05/23 11:47) Rash Penicillins [PENICILLINS] Allergy (Severe, Verified 04/05/23 11:47) Anaphylaxis sulfamethoxazole [From BACTRIM] Allergy (Severe, Verified 04/05/23 11:47) Hives trimethoprim [From BACTRIM] Allergy (Severe, Verified 04/05/23 11:47) Hives meloxicam Adverse Reaction (Intermediate, Verified 04/05/23 11:47) GI side effects Medication List - Last Reconciled 04/05/23 by Amilcar Cuellar MD acetaminophen 500 mg PO Q6H 7 days atorvastatin 40 mg PO DAILY blood sugar diagnostic (OneTouch Ultra Test strips) As directed once per day blood-glucose meter (OneTouch Ultra2 Meter kit) As directed clonidine HCl 0.1 mg PO BID cyclobenzaprine 10 mg PO TID PRN lancets (OneTouch UltraSoft 2 Lancet) As directed once per day lisinopril-hydrochlorothiazide 20-12.5 mg 1 tab PO DAILY metformin 500 mg PO BID 90 days pioglitazone 15 mg PO DAILY quetiapine 25 mg PO DAILY quetiapine 100 mg PO BEDTIME tizanidine 2 mg PO Q8H 30 days Do you need a note to return to daycare/school/sports/work: Yes HPI EP problems swallowing masked in lobby HPI Details 52 yr old female presents to the office for a sick visit. Patient is reporting sx of difficulty swallowing for the past three days. She had complained of this in the past and a swallowing eval (done when?, where?) was reported normal. Recently was diagnosed with Covid. No vomiting, fever or chills. No weight loss. PFSH Medical History Sacroiliitis Atypical chest pain Surgical History History of esophagogastroduodenoscopy (EGD) Hx of colonoscopy Tubal ligation status History of appendectomy Hx of cholecystectomy Family History Father Hypertension Mother Diabetes Other Mental health disorder Social History Housing: Apartment Alcohol intake: current Alcohol intake frequency: former alcohol drinker Patient Tobacco Use Status: Former Tobacco user Tobacco use type: Cigarette e-Cigarette/Vaping Use: Never Used Second Hand Smoke Exposure: No service: No Current occupational status: disabled Cognitive needs: No Hearing needs: No Vision needs: Yes Physical Exam Vital Signs: Last Vital Signs Temp 98.0 F 04/05/23 11:13 Pulse 80 04/05/23 11:13 BP 110/70 04/05/23 11:13 Pulse Ox 97 04/05/23 11:13 BMI result Body Mass Index 37.2 Const General: cooperative and healthy appearing Nutritional Appearance: well nourished Orientation/consciousness: patient oriented x3 Limitations: no limitations HEENT Head: Yes normal to inspection Eyes General: appearance normal, both eyes and all related structures Neck Neck: Yes normal visual inspection Chest Chest palpation & inspection: normal palpation of entire chest wall Resp Effort & Inspection: normal respiratory effort Neuro General: patient oriented x3 Results AMB Rapid Strep AMB Rapid Strep Negative Last Edit by Sergio Kan CMA on 04/05/23 11 :21 Results Reviewed Results Reviewed: Laboratory Last Values Strep Scn Rapid Clinic Negative 04/05/23 11:21 Assessment & Plan Assessment & Plan (1) GERD (gastroesophageal reflux disease): Code(s): K21.9 - Gastro-esophageal reflux disease without esophagitis Qualifiers: Esophagitis presence: without esophagitis Qualified Code(s): K21.9 - Gastro-esophageal reflux disease without esophagitis Plan: Pantoprazole called in. If sx not better, to follow up here. Orders: Orders AMB Rapid Strep Screen Today Z13.9 - Encounter for screening, unspecified Coding Level of Care Code Est Pt Level 3 (46747) Diagnoses Gastroesophageal reflux disease without esophagitis K21.9 Esophagitis presence: without esophagitis
[2023-04-05 11:13] VITALS: BP 110/70; PULSE 80; TEMP 36.7; O2SAT 97; BMI 37.2
== END 2023-04-05 12:06 | disposition home or self-care (01) ==
PROVIDERS: PCP Physician Assistant; Visit Provider Internal Medicine
DX: K21.9 Gastro-esophageal reflux disease without esophagitis (principal); R13.10 Dysphagia, unspecified
CPT/HCPCS: 87880; 99213

== ENCOUNTER 2023-05-08 13:00 | Outpatient (RCR) | payer OTHER, SELFPAY ==
[2023-04-18 13:02] VITALS: BP 130/84; PULSE 105; O2SAT 98
== END 2023-09-04 07:22 | disposition home or self-care (01) ==
LOC: HO.PTWFD 13:00
PROVIDERS: PCP Physician Assistant; Visit Provider Physician Assistant
DX: M54.50 Low back pain, unspecified (principal)
CPT/HCPCS: 97110; 97163

== ENCOUNTER 2023-05-25 14:01 | Outpatient (AMB) | payer OTHER, SELFPAY ==
--- NOTE | 2023-05-25 14:49 | A.OFFPC_ITS ---
Vital Signs 05/25/23 14:50 Height 4 ft 11 in Weight 182 lb 4 oz BMI 36.8 BP 104/66 Blood Pressure Location Lt brachial Position Sitting Respiration 16 Pulse 88 Pulse Source Pulse Oximeter Pulse Oximetry (%) 98 Oxygen Delivery Method Room Air Intake Visit Reasons: f/u DMII Intake Note: The patient is here for a follow-up on Type 2 Diabetes. Pt last A1C check[facility], revealed a reading of 6.6% Bonded Strand Operator Required: No Accompanied by: Self / Same As Patient Allergies amoxicillin [AMOXICILLIN] Allergy (Severe, Verified 05/25/23 15:13) Anaphylaxis aspirin [ASA] Allergy (Severe, Verified 05/25/23 15:13) RASH/FEVER/VOMITING latex [LATEX] Allergy (Severe, Verified 05/25/23 15:13) Rash Penicillins [PENICILLINS] Allergy (Severe, Verified 05/25/23 15:13) Anaphylaxis sulfamethoxazole [From BACTRIM] Allergy (Severe, Verified 05/25/23 15:13) Hives trimethoprim [From BACTRIM] Allergy (Severe, Verified 05/25/23 15:13) Hives meloxicam Adverse Reaction (Intermediate, Verified 05/25/23 15:13) GI side effects Medication List - Last Reviewed 05/25/23 by SHANNON Calvillo acetaminophen 500 mg PO Q6H 7 days atorvastatin 40 mg PO DAILY blood sugar diagnostic (OneTouch Ultra Test strips) As directed once per day blood-glucose meter (OneTouch Ultra2 Meter kit) As directed clonidine HCl 0.1 mg PO BID cyclobenzaprine 10 mg PO TID PRN lancets (Acacia InteractiveTouch UltraSoft 2 Lancet) As directed once per day lisinopril-hydrochlorothiazide 20-12.5 mg 1 tab PO DAILY metformin 500 mg PO BID 90 days pantoprazole 40 mg PO DAILY pioglitazone 15 mg PO DAILY polyethylene glycol 3350 grams PO quetiapine 25 mg PO DAILY quetiapine 100 mg PO BEDTIME tizanidine 2 mg PO Q8H 30 days Tobacco use date assessed: 05/25/23 Dental Screening Dental Screen Date: 05/25/23 Did you have a dental visit in the last 12 months?: Yes Did you have a dental problem in the last 6 months where you did not have access to dental care?: No Was dental information given to patient?: Patient has dentist HPI f/u DMII HPI Details Patient is a 52 y/o F for a follow-up visit. ? Pmhx significant for DM II, HLD, Type 2 DM, , obesity, bipolar type 2 disorder, history of polysubstance abuse. ?. ? .. ? Diabetes type 2:? Most recent A1c is 6.6 Has gained weight since last office visit. reports her random blood sugar are 240s .? Continues on metformin and pioglitazo ne with good effect. . Patient reports she is compliant with her medication. Has not gotten her A1c checked in quite a while. .. : Obesity: Patient does understand her BMI is over 30 will work on being more physically active and adapting to better eating habits to reduce her weight ? .. ? Bipolar disorder: Patient is followed by a therapist and a psychiatrist and believes her mood is somewhat stable though still is making med adjustments with her psychiatrist. [facility] Medical History Sacroiliitis Atypical chest pain Surgical History History of esophagogastroduodenoscopy (EGD) Hx of colonoscopy Tubal ligation status History of appendectomy Hx of cholecystectomy Family History Father Hypertension Mother Diabetes Other Mental health disorder Social History Housing: Apartment Alcohol intake: current Alcohol intake frequency: former alcohol drinker Patient Tobacco Use Status: Former Tobacco user Tobacco use type: Cigarette e-Cigarette/Vaping Use: Never Used Second Hand Smoke Exposure: No service: No Current occupational status: disabled Cognitive needs: No Hearing needs: No Vision needs: Yes Questionnaire PHQ-9 Over the last 2 weeks, how often have you been bothered by any of the following problems? 1. Little interest or pleasure in doing things: more than half the days 2. Feeling down, depressed, or hopeless: more than half the days 3. Trouble falling or staying asleep, or sleeping too much: several days 4. Feeling tired or having little energy: not at all 5. Poor appetite or overeating: several days 6. Feeling bad about yourself - or that you are a failure or have let yourself or your family down: more than half the days 7. Trouble concentrating on things, such as reading the newspaper or watching television: not at all 8. Moving or speaking so slowly that other people could have noticed. Or the opposite - being so fidgety or restless that you have been moving around a lot more than usual: more than half the days 9. Thoughts that you would be better off or of hurting yourself in some way: not at all Total score: 10 Depression Screening Interpretation: Positive Depression Screening Follow-up: Existing condition Depression Screening Done: Yes 58142 - PHQ-9 Billing: Yes Source: Developed by Drs. Uri Lugo, Ewelina Eric, Pantera Alcala and colleagues, with an educational durga from [employer]. Thrive Questionnaire Date Thrive assessed: 05/25/23 I am a: Patient What is your living situation today?: I have a steady place to live Within the past 12 months, did the food you bought not last and you didn't have the money to get more?: Never true Within the past 12 months, did you worry whether your food would run out before you got money to buy more?: Never true Do you have trouble paying for medicines?: No Do you have trouble getting transportation to medical appointments?: No Do you have trouble paying your heating and electricity bill?: No Do you have trouble taking care of your child, family member or friend?: No Do you have trouble with day-to-day activities such as bathing, preparing meals, shopping, managing finances, etc.?: No Are you currently unemployed and looking for a job?: No Are you interested in more education?: No Please select the resources that you would like help with: None Currently or been in a relationship where the following occur: no concerns reported THRIVE Score: 0 AUDIT C Alcohol Use Questionnaire (AUDIT-C) 1. How often do you have a drink containing alcohol?: Never 3. How often do you have six or more drinks on one occasion?: Never Total Score: 0 JOSE ARMANDO-7 AMB Questionnaire JOSE ARMANDO-7 Date JOSE ARMANDO - 7 assessed: 05/25/23 Feeling nervous, anxious, or on edge: 0 = Not at all Not being able to stop or control worryin = Not at all Worrying too much about different things: 0 = Not at all Trouble relaxin = Not at all Being so restless that it is hard to sit still: 0 = Not at all Becoming easily annoyed or irritable: 0 = Not at all Feeling afraid as if something awful might happen: 0 = Not at all Total JOSE ARMANDO-7 score (0-4 normal; 5-9 mild; 10-14 moderate; 15-21 severe): 0 Source: Developed by Drs. Uri Lugo, Ewelina Eric, Pantera Alcala and colleagues, with an educational durga from [employer]. JOSE ARMANDO-7 Assessment Billing JOSE ARMANDO-7 Assessment Tool: JOSE ARMANDO-7 Assessment [id number] PHQ-2/PHQ-9 PHQ-2 Over the last 2 weeks, how often have you been bothered by any of the following problems? 1. Little interest or pleasure in doing things: more than half the days 2. Feeling down, depressed, or hopeless: more than half the days Total score: 4 If score is 3 or greater, continue 3. Trouble falling or staying asleep, or sleeping too much: several days 4. Feeling tired or having little energy: not at all 5. Poor appetite or overeating: several days 6. Feeling bad about yourself - or that you are a failure or have let yourself or your family down: more than half the days 7. Trouble concentrating on things, such as reading the newspaper or watching television: not at all 8. Moving or speaking so slowly that other people could have noticed. Or the opposite - being so fidgety or restless that you have been moving around a lot more than usual: more than half the days 9. Thoughts that you would be better off or of hurting yourself in some way: not at all Total score: 10 0-4 None-Minimal, 5-9 Mild, 10-14 Moderate, 15-19 Moderately Severe, 20-27 Severe Source: Developed by Drs. Uri Lugo, Ewelina Eric, Pantera Alcala and colleagues, with an educational durga from [employer]. Review of Systems Const Denies headache(s) Eyes Denies loss of vision ENT Denies vertigo, Denies dizziness, Denies headache(s) and Denies sore throat Card Denies chest pain, Denies leg edema and Denies lightheadedness Resp Denies cough, Denies hemoptysis and Denies wheezing GI Denies abdominal pain, Denies melena, Denies constipation, Denies diarrhea and Denies vomiting Denies urinary frequency, Denies dysuria and Denies urinary urgency Musc Denies arthralgias, Denies joint swelling, Denies numbness and Denies tingling Neuro Denies Abnormal speech present, Denies behavioral changes, Denies vertigo, Denies dizziness, Denies headache(s), Denies loss of vision, Denies memory loss, Denies numbness and Denies tingling Psych Denies anxiety, Denies behavioral changes, Denies depression, Denies memory loss and Denies panic attacks Tarun/Lymph Denies easy bleeding and Denies easy bruising Aller/Immun Denies wheezing Physical exam (Primary Care) Vital Signs: Last Vital Signs Pulse 88 05/25/23 14:50 Resp 16 05/25/23 14:50 BP 104/66 05/25/23 14:50 Pulse Ox 98 05/25/23 14:50 Oxygen Delivery Method Room Air 05/25/23 14:50 BMI result Body Mass Index 36.8 Tobacco/Smoking Status: Tobacco use Status Tobacco use date assessed 05/25/23 05/25/23 14:57 Patient Tobacco Use Status Former Tobacco user 05/25/23 14:49 Tobacco use type Cigarette 05/25/23 14:49 e-Cigarette/Vaping Use Never Used 05/25/23 14:49 PHQ-9: PHQ-9 Score PHQ-9: Total score 10 05/25/23 15:09 Depression Screening Interpretation: Positive Depression Screening Follow-up: Existing condition Thrive Assessment: Date of Thrive Assessment Date Thrive assessed 05/25/23 05/25/23 14:57 Currently or been in a relationship where the following occur: no concerns reported Const General: healthy appearing, no acute distress, alert and awake Nutritional Appearance: well nourished Orientation/consciousness: oriented to person, oriented to place and oriented to time HENMT Ears: TM's normal bilaterally General nose exam: Normal nasal mucous membranes and turbinates present Eyes Conjunctivae: conjunctivae normal Sclerae: sclerae normal Pupils: Equal, round and reactive pupils present Neck Neck: Yes no lymphadenopathy and Yes no JVD Thyroid: Thyroid normal Carotids: no bruits Resp Effort & Inspection: normal respiratory effort and not tachypneic Auscultation: no crackles, no rales, no rhonchi and no wheezes Cardio Rate: regular rate Rhythm: regular rhythm Heart sounds: no murmurs and normal S1 and S2 GI Palpation (GI): Soft to palpation, nontender, no hepatomegaly and no splenomegaly Auscultation: normal bowel sounds Skin General skin exam: no rashes or lesions noted and dry skin Neuro General: oriented to person, oriented to place and oriented to time Cranial nerves: Yes Equal, round and reactive pupils present Speech: No Abnormal speech present Gait exam (Neuro): Normal gait present Motor exam (neuro): no tremor noted Extrem Right upper extremity: full ROM Left upper extremity: full ROM Right lower extremity: full ROM; no edema Left lower extremity: full ROM; no edema Psych Mental Status: mental status grossly normal Speech and movement: Normal speech and movement present Affect: normal affect Attitude: cooperative Thought process: Normal thought process present Assessment and Plan Assessment & Plan (1) DMII (diabetes mellitus, type 2): Code(s): E11.9 - Type 2 diabetes mellitus without complications Qualifiers: Diabetes mellitus long term acute care registered nurse insulin use: without custodial use Diabetes mellitus complication status: without complication Qualified Code(s): E11.9 - Type 2 diabetes mellitus without complications Plan: Patient's type 2 diabetes previously well controlled. She reports her home nurse did A1c on her recently was 6.6.. Continues on metformin and pioglitazone. Goal A1c is to remain below 7.0. (2) HTN (hypertension): Code(s): I10 - Essential (primary) hypertension Qualifiers: Hypertension type: essential hypertension Qualified Code(s): I10 - Essential (primary) hypertension Plan: Patient's blood pressure acceptable today in office will continue her current dose of antihypertensive medication with goal blood pressure to be below 140/90 (3) Obese: Code(s): E66.9 - Obesity, unspecified Qualifiers: Obesity type: due to excess calories Obesity classification: adult class 2 (BMI 35 - 39.9) Serious obesity comorbidity presence: with serious comorbidity Body mass index: BMI 37.0-37.9 Qualified Code(s): E66.01 - Morbid (severe) obesity due to excess calories; Z68.37 - Body mass index [BMI] 37.0- 37.9, adult Plan: Patient does understand her BMI is over 30 will work on being more physically active and adapting to better eating habits to reduce her weight. (4) MDD (major depressive disorder), recurrent episode, moderate: Code(s): F33.1 - Major depressive disorder, recurrent, moderate Plan: Patient's PHQ-9 score positive for depression which has been existing condition for her. Patient continues to speak with a mental therapist and sees a psychiatrist whom manages her mental health medication. She feels stable for mental health point of view. (5) Lower back pain: Code(s): M54.50 - Low back pain, unspecified Qualifiers: Back pain laterality: midline Chronicity: chronic Sciatica presence: without sciatica Qualified Code(s): M54.50 - Low back pain, unspecified; G89.29 - Other chronic pain Plan: She has been doing physical therapy which she reports helped her lower back. She does use tizanidine 3 times a day. Advised to hold cyclobenzaprine (6) GERD (gastroesophageal reflux disease): Code(s): K21.9 - Gastro-esophageal reflux disease without esophagitis Qualifiers: Esophagitis presence: without esophagitis Qualified Code(s): K21.9 - Gastro-esophageal reflux disease without esophagitis Plan: Was recently seen at the walk-in clinic and was diagnosed with GERD. Was started on pantoprazole which she reports really helps. Will send in script of pantoprazole. Medications: New cholestyramine-aspartame 4 gram (Cholestyramine Light) administer w/meal; avoid other meds within 1hr before or 4-6hr after dose 4 grams PO DAILY PRN 60 ea 0RF diarrhea flare 30 days K52.9 - Noninfective gastroenteritis and colitis, unspecified Changed From pantoprazole 40 mg PO DAILY 14 tabs 1RF K21.9 - Gastro-esophageal reflux disease without esophagitis To pantoprazole 40 mg PO DAILY 90 tabs 1RF 90 days K21.9 - Gastro-esophageal reflux disease without esophagitis Refilled blood sugar diagnostic (INSOM[employer]uch Ultra Test strips) As directed once per day 100 ea 3RF E11.9 - Type 2 diabetes mellitus without complications tizanidine 2 mg PO Q8H 90 tabs 6RF 30 days Discontinued cyclobenzaprine Discontinued Reason: Doctor's Order 10 mg PO TID PRN 30 tabs 0RF muscle spasm Coding Level of Care Code Est Pt Level 4 (27951) Diagnoses Type 2 diabetes mellitus without complication, without long-term current use of insulin E11.9 Diabetes mellitus custodial insulin use: without long term acute care registered nurse use Diabetes mellitus complication status: without complication Essential hypertension I10 Hypertension type: essential hypertension Class 2 severe obesity due to excess calories with serious comorbidity and body mass index (BMI) of 37.0 to 37.9 in adult E66.01; Z68.37 Obesity type: due to excess calories Obesity classification: adult class 2 (BMI 35 - 39.9) Serious obesity comorbidity presence: with serious comorbidity Body mass index: BMI 37.0-37.9 MDD (major depressive disorder), recurrent episode, moderate F33.1 Chronic midline low back pain without sciatica M54.50; G89.29 Back pain laterality: midline Chronicity: chronic Sciatica presence: without sciatica Gastroesophageal reflux disease without esophagitis K21.9 Esophagitis presence: without esophagitis Additional Codes JOSE ARMANDO-7 Assessment Billing - JOSE ARMANDO-7 Assessment Tool: JOSE ARMANDO-7 Assessment [id number] ([id number])
[2023-05-25 14:50] VITALS: BP 104/66; PULSE 88; RESP 16; O2SAT 98; BMI 36.8
== END 2023-05-25 15:26 | disposition home or self-care (01) ==
PROVIDERS: PCP Physician Assistant; Visit Provider Physician Assistant
DX: E11.9 Type 2 diabetes mellitus without complications (principal); E66.01 Morbid (severe) obesity due to excess calories; F33.1 Major depressive disorder, recurrent, moderate; Z68.37 Body mass index [BMI] 37.0-37.9, adult; Z68.36 Body mass index [BMI] 36.0-36.9, adult; I10 Essential (primary) hypertension; M54.50 Low back pain, unspecified; G89.29 Other chronic pain; K21.9 Gastro-esophageal reflux disease without esophagitis
CPT/HCPCS: 99214

== ENCOUNTER 2023-09-22 12:59 | Outpatient (AMB) | payer OTHER, SELFPAY ==
[2023-09-22 13:00] VITALS: BP 104/68; PULSE 85; O2SAT 96; BMI 37.8
--- NOTE | 2023-09-22 13:00 | MHC.PC.OV ---
Vital Signs 09/22/23 13:00 Height 4 ft 11 in Weight 187 lb 0.2 oz BMI 37.8 BP 104/68 Blood Pressure Location Lt brachial Position Sitting Pulse 85 Pulse Source Pulse Oximeter Pulse Oximetry (%) 96 Oxygen Delivery Method Room Air Intake Visit Reasons: [facility] 7.8 Intake Note: Patient is here for hospital discharge follow up. Patient was discharged from [hospital name] on [date]. Allergies amoxicillin [AMOXICILLIN] Allergy (Severe, Verified 05/25/23 15:13) Anaphylaxis aspirin [ASA] Allergy (Severe, Verified 05/25/23 15:13) RASH/FEVER/VOMITING latex [LATEX] Allergy (Severe, Verified 05/25/23 15:13) Rash Penicillins [PENICILLINS] Allergy (Severe, Verified 05/25/23 15:13) Anaphylaxis sulfamethoxazole [From BACTRIM] Allergy (Severe, Verified 05/25/23 15:13) Hives trimethoprim [From BACTRIM] Allergy (Severe, Verified 05/25/23 15:13) Hives meloxicam Adverse Reaction (Intermediate, Verified 05/25/23 15:13) GI side effects Medication List - Last Reconciled 09/22/23 by Catina Morgan PA-C acetaminophen 500 mg PO Q6H 7 days amlodipine 5 mg PO DAILY apixaban (Eliquis) 5 mg PO BID atorvastatin 40 mg PO DAILY benztropine 0.5 mg PO DAILY blood sugar diagnostic ([employer] Ultra Test strips) As directed once per day blood-glucose meter ([employer] Ultra2 Meter kit) As directed cholestyramine-aspartame 4 gram (Cholestyramine Light) 4 grams PO DAILY PRN 30 days clonidine HCl 0.1 mg PO BID furosemide 20 mg PO BID 10 days lancets ([employer] UltraSoft 2 Lancet) As directed once per day lisinopril 5 mg PO DAILY lithium carbonate ER 450 mg PO BEDTIME metformin 500 mg PO BID 90 days metoprolol succinate ER 25 mg PO DAILY paliperidone ER 3 mg PO QAM pantoprazole 40 mg PO DAILY 90 days pioglitazone 15 mg PO DAILY quetiapine 25 mg PO DAILY quetiapine 100 mg PO BEDTIME tizanidine 2 mg PO Q8H 30 days Tobacco use date assessed: 05/25/23 Dental Screening Dental Screen Date: 05/25/23 HPI [facility] 7.8 HPI Details 53-year-old female with history GERD, bipolar 2 disorder, diabetes mellitus, hypertension, and congestive heart failure last seen by Calvin Walker 05/25/2023 coming in today for hospital discharge follow up. Patient initially presented to [facility] ED 07/29/2023 with suicidal ideation.? Was transferred to [facility] for further evaluation and management. Patient initially was having visual and auditory hallucinations during hospitalization at [facility] however throughout her stay she was noted to have improved and was engaging in group activities. Noted improvement in psychosis and mood with resolution of stressors. On discharge she reported she would reach out should she need any additional help. Pioglitazone, Lisinopril, and Miralax was discontinued while in the hospital. [place], benztropine, flonase, plaiperidone, and loratadine started while admitted. Follows with Awais Quiroz NP at [facility] in [place] and going to be seen next week. Also follows with a counselor. Denies hearing any voices or seeing any lights or figures at this time. She denies any self harm or thoughts of SI/HI. Patient is a poor historian and has difficulty answering questions about her hospitalization or medications. She is unsure of the medications she is taking but states she does have tremors with this medication and was given benztropine for it. She is currently residing at [facility] who is managing her medication and appointments. [facility] Medical History Sacroiliitis Atypical chest pain Surgical History History of esophagogastroduodenoscopy (EGD) Hx of colonoscopy Tubal ligation status History of appendectomy Hx of cholecystectomy Family History Father Hypertension Mother Diabetes Other Mental health disorder Social History Housing: Apartment Alcohol intake: current Alcohol intake frequency: former alcohol drinker Patient Tobacco Use Status: Former Tobacco user Tobacco use type: Cigarette e-Cigarette/Vaping Use: Never Used Second Hand Smoke Exposure: No service: No Current occupational status: disabled Cognitive needs: No Hearing needs: No Vision needs: Yes Questionnaire Thrive Questionnaire Date Thrive assessed: 05/25/23 AUDIT C Alcohol Use Questionnaire (AUDIT-C) 1. How often do you have a drink containing alcohol?: Never 3. How often do you have six or more drinks on one occasion?: Never Total Score: 0 JOSE ARMANDO-7 AMB Questionnaire JOSE ARMANDO-7 Date JOSE ARMANDO - 7 assessed: 05/25/23 Source: Developed by Drs. Uri Lugo, Ewelina Eric, Pantera Alcala and colleagues, with an educational durga from [employer]. Review of Systems Const Denies headache(s) Eyes Denies loss of vision ENT Denies vertigo, Denies dizziness, Denies headache(s) and Denies sore throat Card Denies chest pain, Denies leg edema and Denies lightheadedness Resp Denies cough, Denies hemoptysis and Denies wheezing GI Denies abdominal pain, Denies melena, Denies constipation, Denies diarrhea and Denies vomiting Denies urinary frequency, Denies dysuria and Denies urinary urgency Musc Denies arthralgias, Denies numbness and Denies tingling Skin/Breast Reports system reviewed and no additional complaints, except as documented Neuro Denies behavioral changes, Denies vertigo, Denies dizziness, Denies headache(s), Denies loss of vision, Denies memory loss, Denies numbness and Denies tingling Psych Denies behavioral changes, Denies memory loss and Denies panic attacks Tarun/Lymph Denies easy bleeding and Denies easy bruising Aller/Immun Denies wheezing Physical exam (Primary Care) Vital Signs: Last Vital Signs Pulse 85 09/22/23 13:00 BP 104/68 09/22/23 13:00 Pulse Ox 96 09/22/23 13:00 Oxygen Delivery Method Room Air 09/22/23 13:00 BMI result Body Mass Index 37.8 Tobacco/Smoking Status: Tobacco use Status Tobacco use date assessed 05/25/23 09/22/23 13:02 Patient Tobacco Use Status Former Tobacco user 09/22/23 13:02 Tobacco use type Cigarette 09/22/23 13:02 e-Cigarette/Vaping Use Never Used 09/22/23 13:02 Thrive Assessment: Date of Thrive Assessment Date Thrive assessed 05/25/23 09/22/23 13:02 Const General: cooperative, healthy appearing, comfortable and no acute distress Orientation/consciousness: patient oriented x3 HENMT Head: Yes normocephalic Ears: hearing grossly normal bilaterally General nose exam: Normal external nose present Eyes General: appearance normal, both eyes and all related structures Conjunctivae: conjunctivae normal Neck Neck: Yes full ROM and Yes no lymphadenopathy Resp Effort & Inspection: normal respiratory effort Auscultation: clear to auscultation bilaterally, no crackles, no rales, no rhonchi and no wheezes Cardio Rate: regular rate Rhythm: regular rhythm Peripheral pulses: dorsalis pedis present Skin General skin exam: no rashes or lesions noted Neuro General: patient oriented x3 Gait exam (Neuro): Normal gait present Extrem Other: chronic bilateral 1+ pitting edema General: Yes normal to inspection and Yes full ROM Psych Affect: normal affect Attitude: cooperative Insight: Good insight present (Psych) Judgement: Good judgement present (Psych) Results AMB Hemoglobin A1c AMB Hemoglobin A1c 6.6 % Last Edit by KELSEY Nava on 09/22/23 13:33 Assessment and Plan Assessment & Plan (1) Bipolar 2 disorder: Code(s): F31.81 - Bipolar II disorder Plan: Per hospital discharge notes patient is taking [place] and Paliperidone for BPD and benztropine to help with the shakiness from this medication. She is following up with her psychiatrist next week. I informed her I would continue her medications until psychiatry could see her and take over the prescribing of these medications. Patient denies any symptoms at this time of depression, miquel or thoughts of self harm at this time. She agrees to reach out if she has any of these thoughts. (2) DMII (diabetes mellitus, type 2): Code(s): E11.9 - Type 2 diabetes mellitus without complications Qualifiers: Diabetes mellitus terminal operations supervisor insulin use: without terminal operations supervisor use Diabetes mellitus complication status: without complication Qualified Code(s): E11.9 - Type 2 diabetes mellitus without complications Plan: Patient was taken off of Pioglitazone while admitted and A1c was 7.0 in the hospital and 6.6 in clinic today. She is currently using Metformin for her DM. Will follow up in November for DM follow up. Plan Thank you for allowing me to participate in the care of this patient. I personally spent 35 minutes reviewing, examining and charting on this patient. Orders: Orders AMB Hemoglobin A1c Today E11.9 - Type 2 diabetes mellitus without complications Medications: New polyethylene glycol 3350 (Miralax) 17 grams PO DAILY PRN 119 grams 0RF constipation multivitamin 1 tab PO DAILY 30 tabs 2RF lithium carbonate 450 mg (3 x 150 mg) PO BEDTIME 2 weeks 42 caps 0RF Refilled acetaminophen 500 mg PO Q6H 7 days 28 caps 0RF fever cholestyramine-aspartame 4 gram (Cholestyramine Light) administer w/meal; avoid other meds within 1hr before or 4-6hr after dose 4 grams PO DAILY 30 days PRN 60 ea 0RF diarrhea flare K52.9 - Noninfective gastroenteritis and colitis, unspecified Discontinued lisinopril Discontinued Reason: Stopped on Transfer 5 mg PO DAILY 90 tabs 0RF furosemide Discontinued Reason: Patient no longer taking 20 mg PO BID 10 days 20 tabs 0RF I50.9 - Heart failure, unspecified pioglitazone Discontinued Reason: Patient no longer taking 15 mg PO DAILY 90 tabs 1RF E11.9 - Type 2 diabetes mellitus without complications Coding Level of Care Code Est Pt Level 4 (94901) Diagnoses Bipolar 2 disorder F31.81 Type 2 diabetes mellitus without complication, without long-term current use of insulin E11.9 Diabetes mellitus terminal operations supervisor insulin use: without nursing home use Diabetes mellitus complication status: without complication
== END 2023-09-22 13:57 | disposition home or self-care (01) ==
PROVIDERS: PCP Physician Assistant
DX: F31.81 Bipolar II disorder (principal); E11.9 Type 2 diabetes mellitus without complications
CPT/HCPCS: 83036; 99214

== ENCOUNTER 2024-02-05 10:04 | Outpatient (AMB) | payer OTHER, SELFPAY ==
[2024-02-05 10:06] VITALS: BP 112/82; PULSE 94; O2SAT 96; BMI 34.3
--- NOTE | 2024-02-05 10:06 | A.OFFPC_ITS ---
Vital Signs 02/05/24 10:06 Height 4 ft 11 in Weight 170 lb BMI 34.3 BP 112/82 Blood Pressure Location Lt brachial Position Sitting Pulse 94 Pulse Source Pulse Oximeter Pulse Oximetry (%) 96 Oxygen Delivery Method Room Air Intake Visit Reasons: f/u dmii/Swollen leg Intake Note: Patient is here for hospital discharge follow up. Patient was discharged from [facility] on 02/01/24. Multineedle Shirrer Required: No Accompanied by: Self / Same As Patient Allergies amoxicillin [AMOXICILLIN] Allergy (Severe, Verified 02/05/24 10:21) Anaphylaxis aspirin [ASA] Allergy (Severe, Verified 02/05/24 10:21) RASH/FEVER/VOMITING latex [LATEX] Allergy (Severe, Verified 02/05/24 10:21) Rash Penicillins [PENICILLINS] Allergy (Severe, Verified 02/05/24 10:21) Anaphylaxis sulfamethoxazole [From BACTRIM] Allergy (Severe, Verified 02/05/24 10:21) Hives trimethoprim [From BACTRIM] Allergy (Severe, Verified 02/05/24 10:21) Hives meloxicam Adverse Reaction (Intermediate, Verified 02/05/24 10:21) GI side effects Medication List - Last Reconciled 02/05/24 by Cristofer Walker PA-C apixaban (Eliquis) 5 mg PO BID atorvastatin 40 mg PO DAILY benztropine 0.5 mg PO DAILY blood sugar diagnostic ([employer] Ultra Test strips) As directed once per day blood-glucose meter ([employer] Ultra2 Meter kit) As directed carbidopa-levodopa 25-100 mg 0.5 tabs PO TID cholestyramine-aspartame 4 gram (Cholestyramine Light) 4 grams PO DAILY PRN 30 days clonidine HCl 0.1 mg PO BID diaper,brief,adult,disposable (Briefs, Adult-Extra Large) As directed fluticasone propionate 50 mcg/actuation sprays intranasal furosemide 20 mg PO DAILY ketoconazole 2% appl topical BID lancets ([employer] UltraSoft 2 Lancet) As directed once per day loratadine 10 mg PO DAILY metformin 500 mg PO BID 90 days metoprolol succinate ER 25 mg PO DAILY multivitamin 1 tab PO DAILY paliperidone ER 3 mg PO QAM pantoprazole 40 mg PO DAILY 90 days polyethylene glycol 3350 (Miralax) 17 grams PO DAILY PRN [Pull-ups As directed] quetiapine 100 mg PO BEDTIME quetiapine 25 mg PO DAILY PRN tizanidine 2 mg PO Q8H 30 days trazodone 50 mg PO DAILY Tobacco use date assessed: 05/25/23 Dental Screening Dental Screen Date: 05/25/23 HPI f/u dmii/Swollen leg HPI Details Patient is a 53 y/o F here for hospital discharge follow-up. ? Pmhx significant for DM II, HLD, Type 2 DM, , obesity, bipolar type 2 disorder, history of polysubstance abuse. Patient recently hospitalization for a urinary tract infection (UTI), groin pain, and swelling of the legs. The patient reports having been on antibiotics during the hospital stay, after which she developed bilateral swelling of her ankles and feet, which resolved with intravenous Lasix (furosemide). Historically, the patient was diagnosed with congestive heart failure in May, which was associated with peripheral edema and pulmonary symptoms. The patient denies current leg swelling and attributes her edema to CHF, which was diagnosed using imaging such as echocardiography, revealing no significant structural heart abnormality. .. Parkinsonian syndrome: Additionally, the patient reports a history of Parkinsonian symptoms, for which carbidopa/levodopa was administered during her hospital stay. A family history reveals both the patient's mother and brother had Parkinson's disease, though the patient has not been formally prescribed Parkinson's medication post-discharge. She experienced an adverse reaction with tremors in the past while on lithium, which was subsequently discontinued. ?. ? .. ? Diabetes type 2:? Most recent A1c is 6.7 Has gained weight since last office visit. reports her random blood sugar are 240s .? Continues on metformin . Patient reports she is compliant with her medication. Has not gotten her A1c checked in quite a while. .. ? .. ? Bipolar disorder: Patient is followed by a therapist and a psychiatrist and believes her mood is somewhat stable though still is making med adjustments with her psychiatrist. [facility] Medical History Sacroiliitis Atypical chest pain Surgical History History of esophagogastroduodenoscopy (EGD) Hx of colonoscopy Tubal ligation status History of appendectomy Hx of cholecystectomy Family History Father Hypertension Mother Diabetes Other Mental health disorder Social History Housing: Apartment Alcohol intake: current Alcohol intake frequency: former alcohol drinker Patient Tobacco Use Status: Former Tobacco user Tobacco use type: Cigarette e-Cigarette/Vaping Use: Never Used Second Hand Smoke Exposure: No service: No Current occupational status: disabled Cognitive needs: No Hearing needs: No Vision needs: Yes Questionnaire Thrive Questionnaire Date Thrive assessed: 05/25/23 JOSE ARMANDO-7 AMB Questionnaire JOSE ARMANDO-7 Date JOSE ARMANDO - 7 assessed: 05/25/23 Source: Developed by Drs. Uri Lugo, Ewelina Eric, Pantera Alcala and colleagues, with an educational durga from [employer]. Review of Systems Const Denies headache(s) Eyes Denies loss of vision ENT Denies vertigo, Denies dizziness, Denies headache(s) and Denies sore throat Card Denies chest pain, Denies leg edema and Denies lightheadedness Resp Denies cough, Denies hemoptysis and Denies wheezing GI Denies abdominal pain, Denies melena, Denies constipation, Denies diarrhea and Denies vomiting Denies urinary frequency, Denies dysuria and Denies urinary urgency Musc Denies arthralgias, Denies joint swelling, Denies numbness and Denies tingling Neuro Denies Abnormal speech present, Denies behavioral changes, Denies vertigo, Denies dizziness, Denies headache(s), Denies loss of vision, Denies memory loss, Denies numbness and Denies tingling Psych Denies anxiety, Denies behavioral changes, Denies depression, Denies memory loss and Denies panic attacks Tarun/Lymph Denies easy bleeding and Denies easy bruising Aller/Immun Denies wheezing Physical exam (Primary Care) Vital Signs: Last Vital Signs Pulse 94 02/05/24 10:06 BP 112/82 02/05/24 10:06 Pulse Ox 96 02/05/24 10:06 Oxygen Delivery Method Room Air 02/05/24 10:06 BMI result Body Mass Index 34.3 Tobacco/Smoking Status: Tobacco use Status Tobacco use date assessed 05/25/23 02/05/24 10:06 Patient Tobacco Use Status Former Tobacco user 02/05/24 10:06 Tobacco use type Cigarette 02/05/24 10:06 e-Cigarette/Vaping Use Never Used 02/05/24 10:06 Thrive Assessment: Date of Thrive Assessment Date Thrive assessed 05/25/23 02/05/24 10:06 Const General: healthy appearing, no acute distress, alert and awake Nutritional Appearance: well nourished Orientation/consciousness: oriented to person, oriented to place and oriented to time HENMT Ears: TM's normal bilaterally General nose exam: Normal nasal mucous membranes and turbinates present Eyes Conjunctivae: conjunctivae normal Sclerae: sclerae normal Pupils: Equal, round and reactive pupils present Neck Neck: Yes no lymphadenopathy and Yes no JVD Thyroid: Thyroid normal Carotids: no bruits Resp Effort & Inspection: normal respiratory effort and not tachypneic Auscultation: no crackles, no rales, no rhonchi and no wheezes Cardio Rate: regular rate Rhythm: regular rhythm Heart sounds: no murmurs and normal S1 and S2 GI Palpation (GI): Soft to palpation, nontender, no hepatomegaly and no splenomegaly Auscultation: normal bowel sounds Skin General skin exam: no rashes or lesions noted and dry skin Neuro General: oriented to person, oriented to place and oriented to time Cranial nerves: Yes Equal, round and reactive pupils present Speech: No Abnormal speech present Gait exam (Neuro): Normal gait present Motor exam (neuro): no tremor noted Extrem Right upper extremity: full ROM Left upper extremity: full ROM Right lower extremity: full ROM; no edema Left lower extremity: full ROM; no edema Psych Mental Status: mental status grossly normal Speech and movement: Normal speech and movement present Affect: normal affect Attitude: cooperative Thought process: Normal thought process present Results AMB Hemoglobin A1c AMB Hemoglobin A1c 6.7 % Last Edit by SHANNON Calvillo on 02/05/24 10:23 Results Reviewed Results Reviewed: Laboratory Last Values Hgb A1c (Clinic) 6.7 % (4.0-6.0) H 02/05/24 10:23 Coding Level of Care Code TCM Mod MDM <= 7 Days Diagnoses Hospital discharge follow-up Z09 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 G20.B1 Dyskinesia presence: with dyskinesia Fluctuating manifestations: without fluctuating manifestations Essential hypertension I10 Hypertension type: essential hypertension PTSD (post-traumatic stress disorder) F43.10 Type 2 diabetes mellitus without complication, without long-term current use of insulin E11.9 Diabetes mellitus complication status: without complication Diabetes mellitus middle or intermediate school principal insulin use: without middle or intermediate school principal use Chronic diastolic congestive heart failure, NYHA class 3 I50.32 Congestive heart failure type: diastolic Congestive heart failure chronicity: chronic Other chronic pulmonary embolism without acute cor pulmonale I27.82 Pulmonary embolism type: other Chronicity: chronic Acute cor pulmonale presence: without acute cor pulmonale Assessment & Plan Assessment & Plan (1) Hospital discharge follow-up: Code(s): Z09 - Encounter for follow-up examination after completed treatment for conditions other than malignant neoplasm Category: Medical Plan: As per HPI (2) Parkinsons disease: Code(s): G20.A1 - Parkinson's disease without dyskinesia, without mention of fluctuations Category: Medical Qualifiers: Dyskinesia presence: with dyskinesia Fluctuating manifestations: without fluctuating manifestations Qualified Code(s): G20.B1 - Parkinson's disease with dyskinesia, without mention of fluctuations Plan: Prescribe carbidopa/levodopa with dosing as administered during hospitalization. A neurology consultation is planned for further management. (3) HTN (hypertension): Code(s): I10 - Essential (primary) hypertension Category: Medical Qualifiers: Hypertension type: essential hypertension Qualified Code(s): I10 - Essential (primary) hypertension Plan: Patient's blood pressure acceptable today in office. Will continue her current dose of antihypertensive medication with goal blood pressure to remain below 140/90 (4) PTSD (post-traumatic stress disorder): Code(s): F43.10 - Post-traumatic stress disorder, unspecified Category: Medical Plan: Patient will continue her follow-up with Psychiatry. She continues on clonidine and Seroquel with decent affect. (5) DMII (diabetes mellitus, type 2): Code(s): E11.9 - Type 2 diabetes mellitus without complications Category: Medical Qualifiers: Diabetes mellitus complication status: without complication Diabetes mellitus middle or intermediate school principal insulin use: without middle or intermediate school principal use Qualified Code(s): E11.9 - Type 2 diabetes mellitus without complications Plan: Patient's type 2 diabetes well controlled with current dose of metformin 500 b.i.d.. Advised to continue dietary modifications. Goal A1c is to remain below 7.0 (6) CHF (congestive heart failure), NYHA class III: Code(s): I50.9 - Heart failure, unspecified Category: Medical Qualifiers: Congestive heart failure type: diastolic Congestive heart failure chronicity: chronic Qualified Code(s): I50.32 - Chronic diastolic (congestive) heart failure Plan: Continue with furosemide to manage edema. Cardiology referral is advised to optimize heart failure management, including the evaluation of current medications and monitoring for pulmonary fluid retention. (7) Pulmonary embolism: Code(s): I26.99 - Other pulmonary embolism without acute cor pulmonale Category: Medical Qualifiers: Pulmonary embolism type: other Chronicity: chronic Acute cor pulmonale presence: without acute cor pulmonale Qualified Code(s): I27.82 - Chronic pulmonary embolism Plan: Patient continues with Eliquis 5 mg b.i.d. without any overt signs of bleeding.. pulmonary embolism secondary to the usage of control pills, which she ceased taking approximately a year ago Orders: Orders Comprehensive [place]. Panel Fast Today I50.9 - Heart failure, unspecified Microalbumin, Random (w Creat) Today I10 - Essential (primary) hypertension AMB Hemoglobin A1c Today E11.9 - Type 2 diabetes mellitus without complications NT-proBNP Today I50.9 - Heart failure, unspecified Complete Blood Count no Diff Today I50.9 - Heart failure, unspecified Referrals Cardiology Referral I50.9 - Heart failure, unspecified Neurology Referral G20.A1 - Parkinson's disease without dyskinesia, without mention of fluctuations Medications: New furosemide 20 mg PO DAILY 90 tabs 1RF I50.9 - Heart failure, unspecified carbidopa-levodopa 25-100 mg 0.5 tabs PO TID 135 tabs 1RF 90 days G20.A1 - Parkinson's disease without dyskinesia, without mention of fluctuations
== END 2024-02-05 10:53 | disposition home or self-care (01) ==
PROVIDERS: PCP Physician Assistant; Visit Provider Physician Assistant
DX: I11.0 Hypertensive heart disease with heart failure (principal); G20.B1 Parkinson's disease with dyskinesia, without mention of fluctuations; E11.9 Type 2 diabetes mellitus without complications; I50.32 Chronic diastolic (congestive) heart failure; I27.82 Chronic pulmonary embolism; Z09 Encounter for follow-up examination after completed treatment for conditions other than malignant neoplasm; F43.10 Post-traumatic stress disorder, unspecified

== ENCOUNTER → 2024-02-05 10:04 | Outpatient (BNVA) | payer OTHER, SELFPAY | PROVIDERS: PCP Physician Assistant; Visit Provider Physician Assistant | DX: Z09 Encounter for follow-up examination after completed treatment for conditions other than malignant neoplasm (principal); G20.B1 Parkinson's disease with dyskinesia, without mention of fluctuations; F43.10 Post-traumatic stress disorder, unspecified; E11.9 Type 2 diabetes mellitus without complications; I11.0 Hypertensive heart disease with heart failure; I50.32 Chronic diastolic (congestive) heart failure; I27.82 Chronic pulmonary embolism | CPT/HCPCS: 83036; 99495 ==

== ENCOUNTER 2024-03-27 15:39 | Inpatient (IN) | payer OTHER, SELFPAY ==
[2024-03-27 16:00] VITALS: BMI 29.7
[2024-03-27 16:15] VITALS: BP 107/72; PULSE 101; RESP 16; TEMP 36.6; O2SAT 94
--- NOTE | 2024-03-27 18:46 | PC.ADMIT ---
155 Humaira arrived via stretcher from [facility] ED. She requires a walker for mobility. She is oriented x4. She appears older than stated age. She is dressed in [facility] and is unkempt appearing. She reports she cant wipe my own ass and requires a lot of assistance from staff with dressing, toileting, and bathing. She resides at [facility]. She presented to ED with worsening auditory hallucinations. These hallucinations are telling her that she wont ever get well and she should just kill herself , she endorses that she still is having these hallucinations as well as the occasional visual hallucinations of my mother, but thats a good hallucination, I miss her so much . She reports only passive SI at this time. She does have a history of past suicide attempts occuring many years ago (overdose and cutting). She has a chronic history of parkinsons, IBS, PTSD, PE. She does not drink or smoke or use drugs. She has already received her flu and covid vaccines. Her skin check was only remarkable for some slight redness on lower back/upper buttocks, likely from sitting on stretcher for a couple of days and dry feet. She is on 5 minute checks for walker. She signed a CV with Anayeli Bueno NP.
[2024-03-27] MEDS: Loperamide HCl 2 MG CAPSULE PO (19:15)
[2024-03-27] MEDS: traZODone HCL 50 MG TABLET PO (21:26)
[2024-03-27] MEDS: TiZANidine HCL 4 MG TABLET 2 MG PO (21:26)
[2024-03-27] MEDS: Carbidopa/Levodopa 25/100 TABLET 0.5 TAB PO (21:28)
[2024-03-27] MEDS: Melatonin 3 MG TABLET 6 MG PO (21:29)
[2024-03-27] MEDS: cloNIDine HCL 0.1 MG TABLET PO (21:29)
[2024-03-27] MEDS: Apixaban 5 MG TABLET PO (21:29)
[2024-03-28] MEDS: Loperamide HCl 2 MG CAPSULE PO (04:10)
[2024-03-28 07:00] VITALS: BMI 29.4
[2024-03-28 08:00] VITALS: BP 120/61; PULSE 95; RESP 18; TEMP 36.1; O2SAT 100
[2024-03-28 08:33] VITALS: BP 120/61
[2024-03-28] MEDS: Apixaban 5 MG TABLET PO ×2 (08:33→20:41)
[2024-03-28] MEDS: Benztropine Mesylate 0.5 MG TABLET PO (08:33)
[2024-03-28] MEDS: Furosemide 20 MG TABLET PO (08:33)
[2024-03-28] MEDS: metFORMIN HCl 500 MG TABLET PO ×2 (08:33→17:19)
[2024-03-28 08:34] VITALS: BP 120/61
[2024-03-28] MEDS: Carbidopa/Levodopa 25/100 TABLET 0.5 TAB PO ×3 (08:34→20:42)
[2024-03-28] MEDS: Multivitamin TABLET 1 TAB PO (08:34)
[2024-03-28] MEDS: cloNIDine HCL 0.1 MG TABLET PO ×2 (08:34→20:41)
[2024-03-28] MEDS: TiZANidine HCL 4 MG TABLET 2 MG PO ×3 (08:34→20:43)
[2024-03-28] MEDS: Paliperidone ER 3 MG TAB.ER.24 PO (08:34)
[2024-03-28] MEDS: QUEtiapine Fumarate 50 MG TABLET PO (08:35)
[2024-03-28] MEDS: Atorvastatin Calcium 40 MG TABLET PO (08:35)
[2024-03-28] MEDS: Omeprazole 20 MG CAPSULE.DR PO (08:35)
[2024-03-28] MEDS: Ferrous Sulfate 324 MG TABLET.DR PO (08:35)
[2024-03-28] MEDS: Lidocaine 4 % Patch ADH..PATCH 1 PATCH TRANSDERMA (08:37)
[2024-03-28] MEDS: Cholestyramine (With Sugar) 4 GM POWD.PACK PO (08:37)
[2024-03-28 09:24] LABS: Estimated Average Glucose 134 mg/dL; Hemoglobin A1C 165.6368 umol/L; Hemoglobin A1c % 6.3 % (<6.0); Total Hemoglobin (HGBA1C) 3616.5695 umol/L
[2024-03-28 09:36] LABS: Cholesterol 115 mg/dL (<200); Estimated Glomerular Filt Rate > 60; HDL Cholesterol 33 mg/dL (>40); LDL Cholesterol Calculated 58 mg/dL (<100); Magnesium 1.5 mg/dL (1.6-2.6); Triglycerides 122 mg/dL (<150)
[2024-03-28 10:45] LABS: Free T4 (Free Thyroxine) 1.31 ng/dL (0.71-1.85)
--- NOTE | 2024-03-28 14:18 | HO.PM.IMCN ---
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 Medical consult for admission H&P. Pt reports she has not been following the voices commands, and denies either cutting herself or hitting herself with her cane at home. Pt with hx of parkinsonism and walks with cane at home at baseline. Seen using a walker on the unit here. Besides auditory hallucinations, pt has no other acute medical complaints. Denies headache or acute vision changes. Denies chest pain/pressure, palpitations. No fever, chills, nausea, vomiting, abdominal pain. Denies increased fatigue or difficulty ambulating above baseline. Review of Systems Review of Systems: Pt has no acute medical complaints [facility] Medical History (Updated 03/28/24 @ 18:39 by ABDIAZIZ Davies) Non-insulin dependent type 2 diabetes mellitus Parkinsonism Sacroiliitis Atypical chest pain Family History Father Hypertension Mother Diabetes Other Mental health disorder Surgical History History of esophagogastroduodenoscopy (EGD) Hx of colonoscopy Tubal ligation status History of appendectomy Hx of cholecystectomy Social History Household Members: Other Housing: Snf Do you presently have visiting nurse or other home services: No Alcohol intake: current Alcohol intake frequency: former alcohol drinker Patient Tobacco Use Status: Former Tobacco user Tobacco use type: Cigarette e-Cigarette/Vaping Use: Never Used Second Hand Smoke Exposure: No Use of substances other than those prescribed or required for medical reasons: No Last Used Substance: Unknown Currently Displaying Signs/Symptoms of Drug Intoxication Withdrawal: No Any prior treatment program specific to substance use: No Have you been hit, kicked, punched, or otherwise hurt by someone within the past year? If so, by whom?: No Do you feel safe in your current relationship?: No Current Relationship Is there a partner from a previous relationship who is making you feel unsafe now?: No Are you made to feel afraid or neglected: No [facility] Practices: [facility] Advance Directives: Yes Advance Directives on File: Yes Advance Directives Date on File: 08/01/22 Do you have thoughts of harming others: None Do you have a plan to hurt others: No Plan Recently lost weight without trying: Unsure How much weight loss: Unsure Eating poorly because of decreased appetite: No Nutrition screen score: 4 Patient : No : No Poor oral hygiene: Yes service: No Current occupational status: disabled Cognitive needs: No Hearing needs: No Vision needs: Yes Meds Allergies Allergy/AdvReac Type Severity Reaction Status Date / Time amoxicillin [AMOXICILLIN] Allergy Severe Anaphylaxis Verified 02/05/24 10:21 aspirin [ASA] Allergy Severe RASH/FEVER/ Verified 02/05/24 10:21 VOMITING latex [LATEX] Allergy Severe Rash Verified 02/05/24 10:21 Penicillins [PENICILLINS] Allergy Severe Anaphylaxis Verified 02/05/24 10:21 sulfamethoxazole Allergy Severe Hives Verified 02/05/24 10:21 [From BACTRIM] trimethoprim [From BACTRIM] Allergy Severe Hives Verified 02/05/24 10:21 meloxicam AdvReac Intermediate GI side Verified 02/05/24 10:21 effects Active Medications: Current Medications Acetaminophen (Acetaminophen 325 Mg Tablet) 650 mg PO Q6H PRN PRN Reason: Headache/Pain Mild Scale (1-3) Al Hydroxide/Mg Hydroxide (Magnesium Hydrox/Alum Hydrox 30 Ml Oral.Susp) 30 ml PO Q6H PRN PRN Reason: Heartburn/Nausea Apixaban (Apixaban 5 Mg Tablet) 5 mg PO BID [facility] Last Admin: 03/28/24 08:33 Dose: 5 mg Atorvastatin Calcium (Atorvastatin Calcium 40 Mg Tablet) 40 mg PO DAILY [facility] Last Admin: 03/28/24 08:35 Dose: 40 mg Benztropine Mesylate (Benztropine Mesylate 0.5 Mg Tablet) 0.5 mg PO DAILY [facility] Last Admin: 03/28/24 08:33 Dose: 0.5 mg Carbidopa/Levodopa (Carbidopa/Levodopa 25/100 Tablet) 0.5 tab PO TID [facility] Last Admin: 03/28/24 08:34 Dose: 0.5 tab Cholestyramine Resin (Cholestyramine (With Sugar) 4 Gm Powd.Pack) 4 gm PO DAILY PRN PRN Reason: diarrhea flare Last Admin: 03/28/24 08:37 Dose: 4 gm Clonidine HCl (Clonidine Hcl 0.1 Mg Tablet) 0.1 mg PO BID [facility]; Protocol Last Admin: 03/28/24 08:34 Dose: 0.1 mg Ferrous Sulfate (Ferrous Sulfate 324 Mg Tablet.Dr) 324 mg PO DAILY [facility] Last Admin: 03/28/24 08:35 Dose: 324 mg Furosemide (Furosemide 20 Mg Tablet) 20 mg PO DAILY [facility]; Protocol Last Admin: 03/28/24 08:33 Dose: 20 mg Guaifenesin/Dextromethorphan (Guaifenesin Dm 100/10/5 Ml 5 Ml Syrup) 5 ml PO Q4H PRN PRN Reason: Cough Hydroxyzine HCl (Hydroxyzine Hcl 25 Mg Tablet) 25 mg PO Q6H PRN PRN Reason: Anxiety Lidocaine (Lidocaine 4 % Patch Adh..Patch) 1 patch TRANSDERMA DAILY [facility]; Protocol Last Admin: 03/28/24 08:37 Dose: 1 patch Loperamide HCl (Loperamide Hcl 2 Mg Capsule) 2 mg PO Q6H PRN PRN Reason: Diarrhea Last Admin: 03/28/24 04:10 Dose: 2 mg Magnesium Hydroxide (Milk Of Magnesia 30 Ml Oral.Susp) 30 ml PO DAILY PRN PRN Reason: Constipation Melatonin (Melatonin 3 Mg Tablet) 6 mg PO BEDTIME [facility] Last Admin: 03/27/24 21:29 Dose: 6 mg Metformin HCl (Metformin Hcl 500 Mg Tablet) 500 mg PO BIDWM [facility] Last Admin: 03/28/24 08:33 Dose: 500 mg Multivitamins/Vitamin C (Multivitamin Tablet) 1 tab PO DAILY [facility] Last Admin: 03/28/24 08:34 Dose: 1 tab Nicotine (Nicotine 21 Mg Patch.Td24) 21 mg TRANSDERMA DAILY PRN PRN Reason: nicotine cravings Nicotine Polacrilex (Nicotine Polacrilex 2 Mg Gum) 4 mg BUCCAL Q2H PRN PRN Reason: Nicotine Cravings Omeprazole (Omeprazole 20 Mg Capsule.Dr) 20 mg PO DAILY@0630 [facility] Last Admin: 03/28/24 08:35 Dose: 20 mg Paliperidone (Paliperidone Er 3 Mg Tab.Er.24) 4.5 mg PO DAILY [facility] Quetiapine Fumarate (Quetiapine Fumarate 50 Mg Tablet) 50 mg PO DAILY [facility] Last Admin: 03/28/24 08:35 Dose: 50 mg Quetiapine Fumarate (Quetiapine Fumarate 25 Mg Tablet) 25 mg PO TID PRN PRN Reason: anxiety Quetiapine Fumarate 200 mg/ (Quetiapine Fumarate 50 mg) 250 mg PO BEDTIME [facility] Last Admin: 03/27/24 21:29 Dose: 250 mg Senna (Sennosides 8.6 Mg Tablet) 17.2 mg PO DAILY PRN PRN Reason: Constipation Tizanidine HCl (Tizanidine Hcl 4 Mg Tablet) 2 mg PO TID [facility] Last Admin: 03/28/24 08:34 Dose: 2 mg Trazodone HCl (Trazodone Hcl 50 Mg Tablet) 50 mg PO BEDTIME MRX1 PRN PRN Reason: Insomnia Last Admin: 03/27/24 21:26 Dose: 50 mg Home Medications ?Medication ?Instructions ?Recorded ?Confirmed ?Last Taken ?Type benztropine 0.5 mg tablet 0.5 mg PO DAILY 09/22/23 03/27/24 Unknown History paliperidone 3 mg tablet,extended 3 mg PO QAM 09/22/23 03/27/24 Unknown History release 24 hr quetiapine 25 mg tablet 25 mg PO TID PRN Anxiety 02/05/24 03/27/24 Unknown History trazodone 50 mg tablet 50 mg PO DAILY 02/05/24 03/27/24 Unknown History ferrous sulfate 325 mg (65 mg 325 mg PO DAILY 03/27/24 03/27/24 Unknown History iron) tablet lidocaine 4 % topical patch patch topical DAILY 03/27/24 Unknown History (Lidocaine Pain Relief) magnesium hydroxide 400 mg/5 mL 2,400 mg PO BEDTIME PRN 03/27/24 03/27/24 Unknown History oral suspension (Milk of Magnesia) Constipation melatonin 3 mg tablet 6 mg PO DAILY 03/27/24 03/27/24 Unknown History pantoprazole 40 mg tablet,delayed 20 mg PO DAILY 03/27/24 03/27/24 Unknown History release quetiapine 100 mg tablet 250 mg PO BEDTIME 03/27/24 03/27/24 Unknown History quetiapine 50 mg tablet 50 mg PO DAILY 03/27/24 03/27/24 Unknown History sennosides 8.6 mg tablet (senna) 17.2 mg PO DAILY PRN Constipation 03/27/24 03/27/24 Unknown History tizanidine 2 mg tablet 2 mg PO TID 03/27/24 03/27/24 Unknown History Physical Exam Vital Signs and Narrative: Vital Signs: Last Vital Signs Temp 96.9 F 03/28/24 08:00 Pulse 95 03/28/24 08:00 Resp 18 03/28/24 08:00 BP 120/61 03/28/24 08:34 Pulse Ox 100 03/28/24 08:00 O2 Del Method Room Air 03/28/24 08:00 BMI result Body Mass Index 29.4 General: AOx3, no acute distress. Using walker for assistance with ambulation Resp: CTA bilaterally CVS: S1, S2, RRR GI: +BS, NT, no distention Skin: Warm, dry Neuro: Cranial nerves II-XII grossly intact bilaterally. Motor grossly intact bilaterally. Bilatera and symmetric lower extremity weakness. No tongue fasciculations. No tremors noted. No cogwheel rigidity noted. 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 Medical consult for admission H&P. Mood disorder Plan as per Psychiatry Parkinsonism Continue carbidopa levodopa, benztropine Hx of PE/IVC thrombus Continue Eliquis Fee-vrihjwn-ngqtqiwoo type 2 diabetes Continue metformin Encouraged diabetic diet and diabetic snacking GERD PPI HLD Continue statin Thank you for allowing us to participate in the care of this patient. Signing off at this time. Please re-consult if any acute complaints or issues arise.
--- NOTE | 2024-03-28 14:45 | HO.PSYADMNOT ---
HPI Chief Complaint: Bipolar disorder II, PTSD [facility] Medical History Sacroiliitis Atypical chest pain Surgical History History of esophagogastroduodenoscopy (EGD) Hx of colonoscopy Tubal ligation status History of appendectomy Hx of cholecystectomy Diagnostics Vital Signs (24Hr): Vital Signs - 24 hr 03/27/24 16:15 03/28/24 08:00 03/28/24 08:33 Temperature 97.8 F 96.9 F Pulse Rate 101 H 95 Respiratory Rate 16 18 Blood Pressure 107/72 120/61 120/61 Pulse Oximetry 94 100 Oxygen Delivery Method Room Air 03/28/24 08:34 Temperature Pulse Rate Respiratory Rate Blood Pressure 120/61 Pulse Oximetry Oxygen Delivery Method BMI result Body Mass Index 29.4 Labs 03/28/24 09:01 Labs: Laboratory Results - last 48 hr 03/28/24 03/28/24 09:01 09:02 Creatinine 0.86 Cancelled Estim Creat Clear Calc 69.0 Cancelled Estimated GFR > 60 Cancelled Estimat Average Glucose 134 Hemoglobin A1c % 6.3 H Magnesium 1.5 L Triglycerides 122 Cholesterol 115 LDL Cholesterol, Calc 58 HDL Cholesterol 33 L TSH 0.50 Free T4 1.31 Meds/Allergies Meds Home Medications ?Medication ?Instructions ?Recorded ?Confirmed ?Type benztropine 0.5 mg tablet 0.5 mg PO DAILY 09/22/23 03/27/24 History paliperidone 3 mg tablet,extended 3 mg PO QAM 09/22/23 03/27/24 History release 24 hr quetiapine 25 mg tablet 25 mg PO TID PRN Anxiety 02/05/24 03/27/24 History trazodone 50 mg tablet 50 mg PO DAILY 02/05/24 03/27/24 History ferrous sulfate 325 mg (65 mg 325 mg PO DAILY 03/27/24 03/27/24 History iron) tablet lidocaine 4 % topical patch patch topical DAILY 03/27/24 History (Lidocaine Pain Relief) magnesium hydroxide 400 mg/5 mL 2,400 mg PO BEDTIME PRN 03/27/24 03/27/24 History oral suspension (Milk of Magnesia) Constipation melatonin 3 mg tablet 6 mg PO DAILY 03/27/24 03/27/24 History pantoprazole 40 mg tablet,delayed 20 mg PO DAILY 03/27/24 03/27/24 History release quetiapine 100 mg tablet 250 mg PO BEDTIME 03/27/24 03/27/24 History quetiapine 50 mg tablet 50 mg PO DAILY 03/27/24 03/27/24 History sennosides 8.6 mg tablet (senna) 17.2 mg PO DAILY PRN Constipation 03/27/24 03/27/24 History tizanidine 2 mg tablet 2 mg PO TID 03/27/24 03/27/24 History Allergies Allergies Allergy/AdvReac Type Severity Reaction Status Date / Time amoxicillin [AMOXICILLIN] Allergy Severe Anaphylaxis Verified 02/05/24 10:21 aspirin [ASA] Allergy Severe RASH/FEVER/ Verified 02/05/24 10:21 VOMITING latex [LATEX] Allergy Severe Rash Verified 02/05/24 10:21 Penicillins [PENICILLINS] Allergy Severe Anaphylaxis Verified 02/05/24 10:21 sulfamethoxazole Allergy Severe Hives Verified 02/05/24 10:21 [From BACTRIM] trimethoprim [From BACTRIM] Allergy Severe Hives Verified 02/05/24 10:21 meloxicam AdvReac Intermediate GI side Verified 02/05/24 10:21 effects Assessment & Plan Statement Statement: I have reviewed the history and physical and performed a pertinent examination on my patient. No changes have occurred unless specified. If the History and Physical was not performed prior to admission, the Hospitalist's service will be consulted for completing the admission physical. Time Spent With Patient Time: Total time managing care of this patient today ____ minutes.
--- NOTE | 2024-03-28 18:24 | P.HPPS_ITS ---
HPI Date of Service: 03/28/24 Chief Complaint: Bipolar disorder II, PTSD Sources of Information: patient interviewed, chart reviewed and crisis/core team assessment reviewed HPI Subjective Notes: Moya Warning and Conditional Voluntary Healthcare Proxy: No Guardianship: No Medical Problems Affecting Mental Status: Yes (Parkinson's Disease pt reports) Narrative: Seen 1pm. 53 yo female, resident of [facility], hx of schizoaffective disorder, JOSE ARMANDO, PTSD, PE, antiacoagulation with Eliquis, DM, right vertebral artery stenosis, htn To [facility] with BHN, [address] for SI with plan to bash my head with a bat or my cane . Reports AH, instructing self harm, increase in depressive sx. Reports poor sleep. Reports weight loss 187-155 during the past several months. Pt reports voices just started, telling her it is not worth living, her children do not love her and she will not get better. She identifies stressors as a brother who calls her a great deal and asks for help which increases her stress and another brother, who raised her children with his who she finds is disrespectful to her. She calls their home as one of her sons lives there and is treated rudely by sister in law. These stressors lower her self worth and then she begins to feel suicidal. Past Psychiatric History: IP: Several, recent aptu 01/17-01/27; Ac 07/29 SA: 2 via cutting and overdose OP: Michelle-therapy Dr. Diego Nicole [phone] Hx of SIBS-cutting Medical Evaluation Reviewed: Yes [facility] Medical History (Updated 03/29/24 @ 13:54 by Eva Cabrera APRN) Schizoaffective disorder Non-insulin dependent type 2 diabetes mellitus Parkinsonism Sacroiliitis Atypical chest pain Surgical History History of esophagogastroduodenoscopy (EGD) Hx of colonoscopy Tubal ligation status History of appendectomy Hx of cholecystectomy Family History: schizophrenia, depression, anxiety. Social History: Lives at [facility] Pt is one of 8 children, now the only living female along with four brothers Daughter Tyrel who has a developmental disability and lives in a senior care Son Macros 28, son Faisal 30 Graduated high school Not currently employed Substance History: Denies Trauma History: Affirms Diagnostics Vital Signs (24Hr): Vital Signs - 24 hr 03/28/24 08:00 03/28/24 08:33 03/28/24 08:34 Temperature 96.9 F Pulse Rate 95 Respiratory Rate 18 Blood Pressure 120/61 120/61 120/61 Pulse Oximetry 100 Oxygen Delivery Method Room Air BMI result Body Mass Index 29.4 Labs 03/28/24 09:01 Labs: Laboratory Results - last 48 hr 03/28/24 03/28/24 09:01 09:02 Creatinine 0.86 Cancelled Estim Creat Clear Calc 69.0 Cancelled Estimated GFR > 60 Cancelled Estimat Average Glucose 134 Hemoglobin A1c % 6.3 H Magnesium 1.5 L Triglycerides 122 Cholesterol 115 LDL Cholesterol, Calc 58 HDL Cholesterol 33 L TSH 0.50 Free T4 1.31 WBC 14.3 BUN 21 EKG EKG Comment: 03/23/24 Ventricular Rate 83 QTc 427 Sinus rhythm, PAC, aberrant conduction Possible LAE Nonspecific ST abn Meds/Allergies Meds Home Medications ?Medication ?Instructions ?Recorded ?Confirmed ?Type benztropine 0.5 mg tablet 0.5 mg PO DAILY 09/22/23 03/27/24 History paliperidone 3 mg tablet,extended 3 mg PO QAM 09/22/23 03/27/24 History release 24 hr quetiapine 25 mg tablet 25 mg PO TID PRN Anxiety 02/05/24 03/27/24 History trazodone 50 mg tablet 50 mg PO DAILY 02/05/24 03/27/24 History ferrous sulfate 325 mg (65 mg 325 mg PO DAILY 03/27/24 03/27/24 History iron) tablet lidocaine 4 % topical patch patch topical DAILY 03/27/24 History (Lidocaine Pain Relief) magnesium hydroxide 400 mg/5 mL 2,400 mg PO BEDTIME PRN 03/27/24 03/27/24 History oral suspension (Milk of Magnesia) Constipation melatonin 3 mg tablet 6 mg PO DAILY 03/27/24 03/27/24 History pantoprazole 40 mg tablet,delayed 20 mg PO DAILY 03/27/24 03/27/24 History release quetiapine 100 mg tablet 250 mg PO BEDTIME 03/27/24 03/27/24 History quetiapine 50 mg tablet 50 mg PO DAILY 03/27/24 03/27/24 History sennosides 8.6 mg tablet (senna) 17.2 mg PO DAILY PRN Constipation 03/27/24 03/27/24 History tizanidine 2 mg tablet 2 mg PO TID 03/27/24 03/27/24 History Allergies Allergies Allergy/AdvReac Type Severity Reaction Status Date / Time amoxicillin [AMOXICILLIN] Allergy Severe Anaphylaxis Verified 02/05/24 10:21 aspirin [ASA] Allergy Severe RASH/FEVER/ Verified 02/05/24 10:21 VOMITING latex [LATEX] Allergy Severe Rash Verified 02/05/24 10:21 Penicillins [PENICILLINS] Allergy Severe Anaphylaxis Verified 02/05/24 10:21 sulfamethoxazole Allergy Severe Hives Verified 02/05/24 10:21 [From BACTRIM] trimethoprim [From BACTRIM] Allergy Severe Hives Verified 02/05/24 10:21 meloxicam AdvReac Intermediate GI side Verified 02/05/24 10:21 effects lactose AdvReac Unknown Verified 03/29/24 13:34 Mental Status Exam Mental Status Exam Patient Appearance: Fatigued and Disheveled Patient Orientation: Person, Place, Time and Situation Level of Consciousness: Alert Patient Behavior: Appropriate, Talkative, Cooperative and Good Eye Contact Mood Description: Depressed Affect Description: Flat Patient Cognition Impaired: No Ability to Follow Directions: Good Speech Pattern: Spontaneous Speech, Delayed and Long Pauses Memory Description: Episodic Impaired Hallucinations: Auditory Perceptual Disturbances: Depersonalization and Derealization Thought Process: Rumination Thought Content: positive for Perseveration Depressive Symptoms: Thoughts of /Suicide Judgement: Fair Assessment & Plan Assessment & Plan (1) Parkinsons disease: Status: Acute Qualifiers: Dyskinesia presence: with dyskinesia Fluctuating manifestations: w ithout fluctuating manifestations Qualified Code(s): G20.B1 - Parkinson's disease with dyskinesia, without mention of fluctuations Code(s): G20.A1 - Parkinson's disease without dyskinesia, without mention of fluctuations (2) PTSD (post-traumatic stress disorder): Status: Acute Code(s): F43.10 - Post-traumatic stress disorder, unspecified (3) Schizoaffective disorder: Status: Acute Code(s): F25.9 - Schizoaffective disorder, unspecified Plan Schizoaffective Disorder, PTSD. Plan: Admit, CV, 15 minute checks. Collateral Contacts Diagnostics as needed Increase Invega to 4.5 mg a.m. Encourage full milieu Patient educated on: medication risk/benefits and therapeutic strategies Reason for continued inpatient stay Substantial Risk for: rapid decompensation Statement Statement: I have reviewed the history and physical and performed a pertinent examination on my patient. No changes have occurred unless specified. If the History and Physical was not performed prior to admission, the Hospitalist's service will be consulted for completing the admission physical. Time Spent With Patient Time: Total time managing care of this patient today ____ minutes.
[2024-03-28 20:00] VITALS: BP 115/76; PULSE 94; TEMP 36.2; O2SAT 94
[2024-03-28 20:41] VITALS: BP 115/76
[2024-03-28] MEDS: guaiFENesin DM 100/10/5 ML 5 ML SYRUP PO (20:51)
[2024-03-28] MEDS: traZODone HCL 50 MG TABLET PO (20:51)
[2024-03-29] MEDS: Omeprazole 20 MG CAPSULE.DR PO (07:26)
[2024-03-29 08:00] VITALS: BP 105/60; PULSE 87; RESP 18; TEMP 35.9; O2SAT 95
[2024-03-29 08:03] LABS: Glucose, Whole Blood 135 mg/dL (60-115)
[2024-03-29 08:39] LABS: Folate 14.3 ng/mL (> or = 4.0); Vitamin B12 844 pg/mL (200-900)
[2024-03-29] MEDS: Furosemide 20 MG TABLET PO (09:13)
[2024-03-29] MEDS: Carbidopa/Levodopa 25/100 TABLET 0.5 TAB PO ×3 (09:13→20:49)
[2024-03-29] MEDS: Paliperidone ER 3 MG TAB.ER.24 4.5 MG PO (09:14)
[2024-03-29] MEDS: cloNIDine HCL 0.1 MG TABLET PO ×2 (09:14→20:52)
[2024-03-29] MEDS: Multivitamin TABLET 1 TAB PO (09:14)
[2024-03-29] MEDS: metFORMIN HCl 500 MG TABLET PO ×2 (09:14→17:15)
[2024-03-29] MEDS: Atorvastatin Calcium 40 MG TABLET PO (09:15)
[2024-03-29] MEDS: Apixaban 5 MG TABLET PO ×2 (09:15→20:52)
[2024-03-29] MEDS: QUEtiapine Fumarate 50 MG TABLET PO (09:15)
[2024-03-29] MEDS: Benztropine Mesylate 0.5 MG TABLET PO (09:15)
[2024-03-29] MEDS: TiZANidine HCL 4 MG TABLET 2 MG PO ×3 (09:15→20:50)
[2024-03-29] MEDS: Ferrous Sulfate 324 MG TABLET.DR PO (09:16)
[2024-03-29] MEDS: Cholestyramine (With Sugar) 4 GM POWD.PACK PO (09:25)
--- NOTE | 2024-03-29 10:02 | HO.PSYCHPN ---
Subjective Subjective Date of Service: 03/29/24 Reason For Visit: Bipolar disorder II, PTSD Subjective Notes: Conditional Voluntary Healthcare Proxy: No Guardianship: No Medical Problems Affecting Mental Status: No Interim History: I woke up feeling depressed. 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. I need more physical help now Pt reports she is going to groups and learning more about the milieu. She asks if we believe she is depressed, they think I fake these things, but I don't . Discussed working with her on a premise of trust and listening to her reports of symptoms. Pt identifies family conflict as a main stressor-reports she feels sister in law does not like her and is disrespectful of her and her daughter because of our disabilities. Medication Compliance: Yes Side effects from medications: No Attending Groups: Intermittent Review of Systems Acute medical concerns: No Medical Review of Systems: unchanged Review of Systems Review of Systems denies today Mental Status Exam Mental Status Exam Patient Appearance: Disheveled Patient Orientation: Person, Place, Time and Situation Level of Consciousness: Alert Patient Behavior: Appropriate, Talkative, Cooperative and Good Eye Contact Mood Description: Depressed Affect Description: Flat Patient Cognition Impaired: No Ability to Follow Directions: Good Speech Pattern: Spontaneous Speech, Delayed and Long Pauses Memory Description: Episodic Impaired Hallucinations: Auditory Perceptual Disturbances: Depersonalization and Derealization Thought Process: Rumination Thought Content: positive for Perseveration and positive for Suicidal Ideation Depressive Symptoms: Thoughts of /Suicide Judgement: Fair Diagnostics Vital Signs (24Hr): Vital Signs - 24 hr 03/28/24 20:00 03/28/24 20:41 Temperature 97.1 F Pulse Rate 94 Blood Pressure 115/76 115/76 Pulse Oximetry 94 Oxygen Delivery Method Room Air BMI result Body Mass Index 29.4 Labs 03/28/24 09:01 Labs: Laboratory Results - last 48 hr 03/28/24 03/28/24 03/29/24 09:01 09:02 07:42 Creatinine 0.86 Cancelled Estim Creat Clear Calc 69.0 Cancelled Estimated GFR > 60 Cancelled POC Glucose Estimat Average Glucose 134 Hemoglobin A1c % 6.3 H Magnesium 1.5 L Triglycerides 122 Cholesterol 115 LDL Cholesterol, Calc 58 HDL Cholesterol 33 L Vitamin B12 844 Folate 14.3 TSH 0.50 Free T4 1.31 03/29/24 08:00 Creatinine Estim Creat Clear Calc Estimated GFR POC Glucose 135 H Estimat Average Glucose Hemoglobin A1c % Magnesium Triglycerides Cholesterol LDL Cholesterol, Calc HDL Cholesterol Vitamin B12 Folate TSH Free T4 Medications Medications Current Medications Acetaminophen (Acetaminophen 325 Mg Tablet) 650 mg PO Q6H PRN PRN Reason: Headache/Pain Mild Scale (1-3) Al Hydroxide/Mg Hydroxide (Magnesium Hydrox/Alum Hydrox 30 Ml Oral.Susp) 30 ml PO Q6H PRN PRN Reason: Heartburn/Nausea Apixaban (Apixaban 5 Mg Tablet) 5 mg PO BID [facility] Last Admin: 03/29/24 09:15 Dose: 5 mg Atorvastatin Calcium (Atorvastatin Calcium 40 Mg Tablet) 40 mg PO DAILY [facility] Last Admin: 03/29/24 09:15 Dose: 40 mg Benztropine Mesylate (Benztropine Mesylate 0.5 Mg Tablet) 0.5 mg PO DAILY [facility] Last Admin: 03/29/24 09:15 Dose: 0.5 mg Carbidopa/Levodopa (Carbidopa/Levodopa 25/100 Tablet) 0.5 tab PO TID [facility] Last Admin: 03/29/24 09:13 Dose: 0.5 tab Cholestyramine Resin (Cholestyramine (With Sugar) 4 Gm Powd.Pack) 4 gm PO DAILY PRN PRN Reason: diarrhea flare Last Admin: 03/29/24 09:25 Dose: 4 gm Clonidine HCl (Clonidine Hcl 0.1 Mg Tablet) 0.1 mg PO BID [facility]; Protocol Last Admin: 03/29/24 09:14 Dose: 0.1 mg Ferrous Sulfate (Ferrous Sulfate 324 Mg Tablet.Dr) 324 mg PO DAILY [facility] Last Admin: 03/29/24 09:16 Dose: 324 mg Furosemide (Furosemide 20 Mg Tablet) 20 mg PO DAILY [facility]; Protocol Last Admin: 03/29/24 09:13 Dose: 20 mg Guaifenesin/Dextromethorphan (Guaifenesin Dm 100/10/5 Ml 5 Ml Syrup) 5 ml PO Q4H PRN PRN Reason: Cough Last Admin: 03/28/24 20:51 Dose: 5 ml Hydroxyzine HCl (Hydroxyzine Hcl 25 Mg Tablet) 25 mg PO Q6H PRN PRN Reason: Anxiety Lidocaine (Lidocaine 4 % Patch Adh..Patch) 1 patch TRANSDERMA DAILY [facility]; Protocol Last Admin: 03/29/24 09:21 Dose: Not Given Loperamide HCl (Loperamide Hcl 2 Mg Capsule) 2 mg PO Q6H PRN PRN Reason: Diarrhea Last Admin: 03/28/24 04:10 Dose: 2 mg Magnesium Hydroxide (Milk Of Magnesia 30 Ml Oral.Susp) 30 ml PO DAILY PRN PRN Reason: Constipation Metformin HCl (Metformin Hcl 500 Mg Tablet) 500 mg PO BIDWM [facility] Last Admin: 03/29/24 09:14 Dose: 500 mg Multivitamins/Vitamin C (Multivitamin Tablet) 1 tab PO DAILY [facility] Last Admin: 03/29/24 09:14 Dose: 1 tab Omeprazole (Omeprazole 20 Mg Capsule.Dr) 20 mg PO DAILY@0630 [facility] Last Admin: 03/29/24 07:26 Dose: 20 mg Paliperidone (Paliperidone Er 3 Mg Tab.Er.24) 4.5 mg PO DAILY [facility] Last Admin: 03/29/24 09:14 Dose: 4.5 mg Quetiapine Fumarate (Quetiapine Fumarate 50 Mg Tablet) 50 mg PO DAILY [facility] Last Admin: 03/29/24 09:15 Dose: 50 mg Quetiapine Fumarate (Quetiapine Fumarate 25 Mg Tablet) 25 mg PO TID PRN PRN Reason: anxiety Quetiapine Fumarate 200 mg/ (Quetiapine Fumarate 50 mg) 250 mg PO BEDTIME [facility] Last Admin: 03/28/24 20:44 Dose: 250 mg Tizanidine HCl (Tizanidine Hcl 4 Mg Tablet) 2 mg PO TID [facility] Last Admin: 03/29/24 09:15 Dose: 2 mg Trazodone HCl (Trazodone Hcl 50 Mg Tablet) 50 mg PO BEDTIME MRX1 PRN PRN Reason: Insomnia Last Admin: 03/28/24 20:51 Dose: 50 mg Allergies Allergies Allergy/AdvReac Type Severity Reaction Status Date / Time amoxicillin [AMOXICILLIN] Allergy Severe Anaphylaxis Verified 02/05/24 10:21 aspirin [ASA] Allergy Severe RASH/FEVER/ Verified 02/05/24 10:21 VOMITING latex [LATEX] Allergy Severe Rash Verified 02/05/24 10:21 Penicillins [PENICILLINS] Allergy Severe Anaphylaxis Verified 02/05/24 10:21 sulfamethoxazole Allergy Severe Hives Verified 02/05/24 10:21 [From BACTRIM] trimethoprim [From BACTRIM] Allergy Severe Hives Verified 02/05/24 10:21 meloxicam AdvReac Intermediate GI side Verified 02/05/24 10:21 effects Assessment & Plan Assessment & Plan (1) Medical clearance for psychiatric admission: Status: Acute Code(s): Z00.8 - Encounter for other general examination Plan Pt is a 53-year-old female with a PMH significant for?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 Medical consult for admission H&P. Mood disorder Plan as per Psychiatry Parkinsonism Continue carbidopa levodopa, benztropine Hx of PE/IVC thrombus Continue Eliquis [id number] type 2 diabetes Continue metformin Encouraged diabetic diet and diabetic snacking GERD PPI HLD Continue statin Thank you for allowing us to participate in the care of this patient. Signing off at this time. Please re-consult if any acute complaints or issues arise. 03/29/24: Tolerating increase of Invega, continue dosages Re-review of diagnostics-repeat urine culture from [facility] Reason for continued inpatient stay Substantial Risk for: rapid decompensation Time Spent With Patient Time: Total time managing care of this patient today ____ minutes.
[2024-03-29] MEDS: Magnesium Oxide 400 MG TABLET PO (14:33)
[2024-03-29 20:00] VITALS: BP 111/73; PULSE 94; TEMP 37.1; O2SAT 97
[2024-03-29] MEDS: traZODone HCL 50 MG TABLET PO (20:51)
[2024-03-29 20:52] VITALS: BP 111/73
[2024-03-29 21:16] LABS: Glucose, Whole Blood 143 mg/dL (60-115)
[2024-03-30] MEDS: Omeprazole 20 MG CAPSULE.DR PO (07:18)
[2024-03-30 07:59] VITALS: BP 117/63; PULSE 79; TEMP 36; O2SAT 96
[2024-03-30 08:17] LABS: Glucose, Whole Blood 134 mg/dL (60-115)
[2024-03-30] MEDS: TiZANidine HCL 4 MG TABLET 2 MG PO ×3 (08:42→20:23)
[2024-03-30] MEDS: Carbidopa/Levodopa 25/100 TABLET 0.5 TAB PO ×3 (08:44→20:24)
[2024-03-30] MEDS: Atorvastatin Calcium 40 MG TABLET PO (08:45)
[2024-03-30] MEDS: Apixaban 5 MG TABLET PO ×2 (08:45→20:22)
[2024-03-30] MEDS: Ferrous Sulfate 324 MG TABLET.DR PO (08:46)
[2024-03-30] MEDS: Benztropine Mesylate 0.5 MG TABLET PO (08:46)
[2024-03-30] MEDS: metFORMIN HCl 500 MG TABLET PO ×2 (08:47→17:16)
[2024-03-30] MEDS: Furosemide 20 MG TABLET PO (08:47)
[2024-03-30] MEDS: Multivitamin TABLET 1 TAB PO (08:48)
[2024-03-30] MEDS: cloNIDine HCL 0.1 MG TABLET PO ×2 (08:48→20:22)
[2024-03-30] MEDS: Lidocaine 4 % Patch ADH..PATCH 1 PATCH TRANSDERMA (08:49)
[2024-03-30] MEDS: QUEtiapine Fumarate 50 MG TABLET PO (08:49)
[2024-03-30] MEDS: Paliperidone ER 3 MG TAB.ER.24 4.5 MG PO (08:55)
--- NOTE | 2024-03-30 11:21 | HO.PSYCHPN ---
Subjective Subjective Date of Service: 03/30/24 Reason For Visit: Bipolar disorder II, PTSD Subjective Notes: Conditional Voluntary Interim History: Patient was seen and discussed in rounds today. Records and plans were reviewed. Continues to endorse some anxiety and depression and auditory hallucinations which have lessened. Isolative. Tearful at times. Medication compliant. No complaints or side effects. No SI. No changes were made today Review of Systems Review of Systems Yes all other systems are reviewed and are negative Mental Status Exam Mental Status Exam Patient Appearance: Disheveled Patient Orientation: Person, Place, Time and Situation Level of Consciousness: Alert Patient Behavior: Appropriate, Talkative, Cooperative and Good Eye Contact Mood Description: Depressed Affect Description: Flat Patient Cognition Impaired: No Ability to Follow Directions: Good Speech Pattern: Spontaneous Speech, Delayed and Long Pauses Memory Description: Episodic Impaired Hallucinations: Auditory Perceptual Disturbances: Depersonalization and Derealization Thought Process: Rumination Thought Content: positive for Perseveration and positive for Suicidal Ideation Depressive Symptoms: Thoughts of /Suicide Judgement: Fair Diagnostics Vital Signs (24Hr): Vital Signs - 24 hr 03/29/24 20:00 03/29/24 20:52 03/30/24 07:59 Temperature 98.7 F 96.8 F Pulse Rate 94 79 Blood Pressure 111/73 111/73 117/63 Pulse Oximetry 97 96 Oxygen Delivery Method Room Air Room Air BMI result Body Mass Index 29.4 Labs 03/28/24 09:01 Labs: Laboratory Results - last 48 hr 03/29/24 03/29/24 03/29/24 07:42 08:00 20:45 POC Glucose 135 H 143 H Vitamin B12 844 Folate 14.3 03/30/24 08:10 POC Glucose 134 H Vitamin B12 Folate Medications Medications Current Medications Acetaminophen (Acetaminophen 325 Mg Tablet) 650 mg PO Q6H PRN PRN Reason: Headache/Pain Mild Scale (1-3) Al Hydroxide/Mg Hydroxide (Magnesium Hydrox/Alum Hydrox 30 Ml Oral.Susp) 30 ml PO Q6H PRN PRN Reason: Heartburn/Nausea Apixaban (Apixaban 5 Mg Tablet) 5 mg PO BID [facility] Last Admin: 03/30/24 08:45 Dose: 5 mg Atorvastatin Calcium (Atorvastatin Calcium 40 Mg Tablet) 40 mg PO DAILY [facility] Last Admin: 03/30/24 08:45 Dose: 40 mg Benztropine Mesylate (Benztropine Mesylate 0.5 Mg Tablet) 0.5 mg PO DAILY [facility] Last Admin: 03/30/24 08:46 Dose: 0.5 mg Carbidopa/Levodopa (Carbidopa/Levodopa 25/100 Tablet) 0.5 tab PO TID [facility] Last Admin: 03/30/24 08:44 Dose: 0.5 tab Cholestyramine Resin (Cholestyramine (With Sugar) 4 Gm Powd.Pack) 4 gm PO DAILY PRN PRN Reason: diarrhea flare Last Admin: 03/29/24 09:25 Dose: 4 gm Clonidine HCl (Clonidine Hcl 0.1 Mg Tablet) 0.1 mg PO BID [facility]; Protocol Last Admin: 03/30/24 08:48 Dose: 0.1 mg Ferrous Sulfate (Ferrous Sulfate 324 Mg Tablet.) 324 mg PO DAILY [facility] Last Admin: 03/30/24 08:46 Dose: 324 mg Furosemide (Furosemide 20 Mg Tablet) 20 mg PO DAILY [facility]; Protocol Last Admin: 03/30/24 08:47 Dose: 20 mg Guaifenesin/Dextromethorphan (Guaifenesin Dm 100/10/5 Ml 5 Ml Syrup) 5 ml PO Q4H PRN PRN Reason: Cough Last Admin: 03/28/24 20:51 Dose: 5 ml Hydroxyzine HCl (Hydroxyzine Hcl 25 Mg Tablet) 25 mg PO Q6H PRN PRN Reason: Anxiety Lidocaine (Lidocaine 4 % Patch Adh..Patch) 1 patch TRANSDERMA DAILY [facility]; Protocol Last Admin: 03/30/24 08:49 Dose: 1 patch Loperamide HCl (Loperamide Hcl 2 Mg Capsule) 2 mg PO Q6H PRN PRN Reason: Diarrhea Last Admin: 03/28/24 04:10 Dose: 2 mg Magnesium Hydroxide (Milk Of Magnesia 30 Ml Oral.Susp) 30 ml PO DAILY PRN PRN Reason: Constipation Metformin HCl (Metformin Hcl 500 Mg Tablet) 500 mg PO BIDWM [facility] Last Admin: 03/30/24 08:47 Dose: 500 mg Multivitamins/Vitamin C (Multivitamin Tablet) 1 tab PO DAILY [facility] Last Admin: 03/30/24 08:48 Dose: 1 tab Omeprazole (Omeprazole 20 Mg Capsule.) 20 mg PO DAILY@0630 [facility] Last Admin: 03/30/24 07:18 Dose: 20 mg Paliperidone (Paliperidone Er 3 Mg Tab.Er.24) 4.5 mg PO DAILY [facility] Last Admin: 03/30/24 08:55 Dose: 4.5 mg Quetiapine Fumarate (Quetiapine Fumarate 50 Mg Tablet) 50 mg PO DAILY [facility] Last Admin: 03/30/24 08:49 Dose: 50 mg Quetiapine Fumarate (Quetiapine Fumarate 25 Mg Tablet) 25 mg PO TID PRN PRN Reason: anxiety Quetiapine Fumarate 200 mg/ (Quetiapine Fumarate 50 mg) 250 mg PO BEDTIME [facility] Last Admin: 03/29/24 20:51 Dose: 250 mg Saliva Substitute (Dry Mouth [place] 60 Ml [place]) 1 spray MUCOUS MEM Q2H PRN PRN Reason: Dry Mouth Tizanidine HCl (Tizanidine Hcl 4 Mg Tablet) 2 mg PO TID [facility] Last Admin: 03/30/24 08:42 Dose: 2 mg Trazodone HCl (Trazodone Hcl 50 Mg Tablet) 50 mg PO BEDTIME MRX1 PRN PRN Reason: Insomnia Last Admin: 03/29/24 20:51 Dose: 50 mg Allergies Allergies Allergy/AdvReac Type Severity Reaction Status Date / Time amoxicillin [AMOXICILLIN] Allergy Severe Anaphylaxis Verified 02/05/24 10:21 aspirin [ASA] Allergy Severe RASH/FEVER/ Verified 02/05/24 10:21 VOMITING latex [LATEX] Allergy Severe Rash Verified 02/05/24 10:21 Penicillins [PENICILLINS] Allergy Severe Anaphylaxis Verified 02/05/24 10:21 sulfamethoxazole Allergy Severe Hives Verified 02/05/24 10:21 [From BACTRIM] trimethoprim [From BACTRIM] Allergy Severe Hives Verified 02/05/24 10:21 meloxicam AdvReac Intermediate GI side Verified 02/05/24 10:21 effects lactose AdvReac Unknown Verified 03/29/24 13:34 Assessment & Plan Assessment & Plan (1) Medical clearance for psychiatric admission: Status: Acute Code(s): Z00.8 - Encounter for other general examination Plan Pt is a 53-year-old female with a PMH significant for?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 Medical consult for admission H&P. Mood disorder Plan as per Psychiatry Parkinsonism Continue carbidopa levodopa, benztropine Hx of PE/IVC thrombus Continue Eliquis [id number]-[id number] type 2 diabetes Continue metformin Encouraged diabetic diet and diabetic snacking GERD PPI HLD Continue statin Thank you for allowing us to participate in the care of this patient. Signing off at this time. Please re-consult if any acute complaints or issues arise. 03/29/24: Tolerating increase of Invega, continue dosages Re-review of diagnostics-repeat urine culture from [facility] 03/30/2024: Continue current regimen and plans Reason for continued inpatient stay Substantial Risk for: med/psych decompensation Time Spent With Patient Time: Total time managing care of this patient today ____ minutes.
[2024-03-30] MEDS: Cholestyramine (With Sugar) 4 GM POWD.PACK PO (11:22)
[2024-03-30] MEDS: Dry Mouth Spray 60 ML SPRAY 1 SPRAY MUCOUS MEM ×3 (14:08→20:22)
[2024-03-30 19:58] VITALS: BP 133/84; PULSE 125; TEMP 36.3; O2SAT 99
[2024-03-30 20:22] VITALS: BP 133/84
[2024-03-30] MEDS: traZODone HCL 50 MG TABLET PO (20:22)
[2024-03-30 21:08] LABS: Glucose, Whole Blood 164 mg/dL (60-115)
[2024-03-31] MEDS: Omeprazole 20 MG CAPSULE.DR PO (06:58)
[2024-03-31 08:00] VITALS: BP 121/63; PULSE 91; RESP 16; TEMP 36; O2SAT 96
[2024-03-31 08:14] LABS: Glucose, Whole Blood 138 mg/dL (60-115)
[2024-03-31] MEDS: Cholestyramine (With Sugar) 4 GM POWD.PACK PO (08:45)
[2024-03-31] MEDS: Carbidopa/Levodopa 25/100 TABLET 0.5 TAB PO ×3 (08:47→20:56)
[2024-03-31] MEDS: Dry Mouth Spray 60 ML SPRAY 1 SPRAY MUCOUS MEM ×2 (08:47→14:15)
[2024-03-31 08:48] VITALS: BP 123/63
[2024-03-31] MEDS: Paliperidone ER 3 MG TAB.ER.24 4.5 MG PO (08:48)
[2024-03-31] MEDS: Furosemide 20 MG TABLET PO (08:48)
[2024-03-31] MEDS: TiZANidine HCL 4 MG TABLET 2 MG PO ×3 (08:49→20:56)
[2024-03-31] MEDS: Atorvastatin Calcium 40 MG TABLET PO (08:50)
[2024-03-31] MEDS: Benztropine Mesylate 0.5 MG TABLET PO (08:50)
[2024-03-31] MEDS: Apixaban 5 MG TABLET PO ×2 (08:50→20:58)
[2024-03-31] MEDS: metFORMIN HCl 500 MG TABLET PO ×2 (08:50→17:11)
[2024-03-31 08:51] VITALS: BP 121/63
[2024-03-31] MEDS: QUEtiapine Fumarate 50 MG TABLET PO (08:51)
[2024-03-31] MEDS: Multivitamin TABLET 1 TAB PO (08:51)
[2024-03-31] MEDS: cloNIDine HCL 0.1 MG TABLET PO ×2 (08:51→20:57)
[2024-03-31] MEDS: Ferrous Sulfate 324 MG TABLET.DR PO (08:51)
--- NOTE | 2024-03-31 10:54 | HO.PSYCHPN ---
Subjective Subjective Date of Service: 03/31/24 Reason For Visit: Bipolar disorder II, PTSD Subjective Notes: Conditional Voluntary Interim History: Patient was seen and discussed in rounds today. Records and plans were reviewed. She has been stable, no more diarrhea. Some fatigue is reported. She does have some auditory hallucinations that are negative in nature. She is more verbal. She has developed a rash between her buttocks, probably fungal and hospitalist consult was placed. No SI. Review of Systems Review of Systems Rash between buttocks Yes all other systems are reviewed and are negative Mental Status Exam Mental Status Exam Patient Appearance: Disheveled Patient Orientation: Person, Place, Time and Situation Level of Consciousness: Alert Patient Behavior: Appropriate, Talkative, Cooperative and Good Eye Contact Mood Description: Depressed Affect Description: Flat Patient Cognition Impaired: No Ability to Follow Directions: Good Speech Pattern: Spontaneous Speech, Delayed and Long Pauses Memory Description: Episodic Impaired Hallucinations: Auditory Perceptual Disturbances: Depersonalization and Derealization Thought Process: Rumination Thought Content: positive for Perseveration and positive for Suicidal Ideation Depressive Symptoms: Thoughts of /Suicide Judgement: Fair Diagnostics Vital Signs (24Hr): Vital Signs - 24 hr 03/30/24 19:58 03/30/24 20:22 03/31/24 08:00 Temperature 97.4 F 96.8 F Pulse Rate 125 H 91 Respiratory Rate 16 Blood Pressure 133/84 133/84 121/63 Pulse Oximetry 99 96 Oxygen Delivery Method Room Air Room Air 03/31/24 08:48 03/31/24 08:51 Temperature Pulse Rate Respiratory Rate Blood Pressure 123/63 121/63 Pulse Oximetry Oxygen Delivery Method BMI result Body Mass Index 29.4 Labs 03/28/24 09:01 Labs: Laboratory Results - last 48 hr 03/29/24 03/30/24 03/30/24 20:45 08:10 21:03 POC Glucose 143 H 134 H 164 H 03/31/24 08:04 POC Glucose 138 H Medications Medications Current Medications Acetaminophen (Acetaminophen 325 Mg Tablet) 650 mg PO Q6H PRN PRN Reason: Headache/Pain Mild Scale (1-3) Al Hydroxide/Mg Hydroxide (Magnesium Hydrox/Alum Hydrox 30 Ml Oral.Susp) 30 ml PO Q6H PRN PRN Reason: Heartburn/Nausea Apixaban (Apixaban 5 Mg Tablet) 5 mg PO BID [facility] Last Admin: 03/31/24 08:50 Dose: 5 mg Atorvastatin Calcium (Atorvastatin Calcium 40 Mg Tablet) 40 mg PO DAILY [facility] Last Admin: 03/31/24 08:50 Dose: 40 mg Benztropine Mesylate (Benztropine Mesylate 0.5 Mg Tablet) 0.5 mg PO DAILY [facility] Last Admin: 03/31/24 08:50 Dose: 0.5 mg Carbidopa/Levodopa (Carbidopa/Levodopa 25/100 Tablet) 0.5 tab PO TID [facility] Last Admin: 03/31/24 08:47 Dose: 0.5 tab Cholestyramine Resin (Cholestyramine (With Sugar) 4 Gm Powd.Pack) 4 gm PO DAILY PRN PRN Reason: diarrhea flare Last Admin: 03/31/24 08:45 Dose: 4 gm Clonidine HCl (Clonidine Hcl 0.1 Mg Tablet) 0.1 mg PO BID [facility]; Protocol Last Admin: 03/31/24 08:51 Dose: 0.1 mg Ferrous Sulfate (Ferrous Sulfate 324 Mg Tablet.Dr) 324 mg PO DAILY [facility] Last Admin: 03/31/24 08:51 Dose: 324 mg Furosemide (Furosemide 20 Mg Tablet) 20 mg PO DAILY [facility]; Protocol Last Admin: 03/31/24 08:48 Dose: 20 mg Guaifenesin/Dextromethorphan (Guaifenesin Dm 100/10/5 Ml 5 Ml Syrup) 5 ml PO Q4H PRN PRN Reason: Cough Last Admin: 03/28/24 20:51 Dose: 5 ml Hydroxyzine HCl (Hydroxyzine Hcl 25 Mg Tablet) 25 mg PO Q6H PRN PRN Reason: Anxiety Lidocaine (Lidocaine 4 % Patch Adh..Patch) 1 patch TRANSDERMA DAILY [facility]; Protocol Last Admin: 03/30/24 08:49 Dose: 1 patch Loperamide HCl (Loperamide Hcl 2 Mg Capsule) 2 mg PO Q6H PRN PRN Reason: Diarrhea Last Admin: 03/28/24 04:10 Dose: 2 mg Magnesium Hydroxide (Milk Of Magnesia 30 Ml Oral.Susp) 30 ml PO DAILY PRN PRN Reason: Constipation Metformin HCl (Metformin Hcl 500 Mg Tablet) 500 mg PO BIDWM [facility] Last Admin: 03/31/24 08:50 Dose: 500 mg Multivitamins/Vitamin C (Multivitamin Tablet) 1 tab PO DAILY [facility] Last Admin: 03/31/24 08:51 Dose: 1 tab Nystatin (Nystatin Cream 15 Gm Tube) 1 appl TOPICAL BID [facility]; Protocol Omeprazole (Omeprazole 20 Mg Capsule.Dr) 20 mg PO DAILY@0630 [facility] Last Admin: 03/31/24 06:58 Dose: 20 mg Paliperidone (Paliperidone Er 3 Mg Tab.Er.24) 4.5 mg PO DAILY [facility] Last Admin: 03/31/24 08:48 Dose: 4.5 mg Quetiapine Fumarate (Quetiapine Fumarate 50 Mg Tablet) 50 mg PO DAILY [facility] Last Admin: 03/31/24 08:51 Dose: 50 mg Quetiapine Fumarate (Quetiapine Fumarate 25 Mg Tablet) 25 mg PO TID PRN PRN Reason: anxiety Quetiapine Fumarate 200 mg/ (Quetiapine Fumarate 50 mg) 250 mg PO BEDTIME [facility] Last Admin: 03/30/24 20:23 Dose: 250 mg Saliva Substitute (Dry Mouth [place] 60 Ml [place]) 1 spray MUCOUS MEM Q2H PRN PRN Reason: Dry Mouth Last Admin: 03/31/24 08:47 Dose: 1 spray Tizanidine HCl (Tizanidine Hcl 4 Mg Tablet) 2 mg PO TID [facility] Last Admin: 03/31/24 08:49 Dose: 2 mg Trazodone HCl (Trazodone Hcl 50 Mg Tablet) 50 mg PO BEDTIME MRX1 PRN PRN Reason: Insomnia Last Admin: 03/30/24 20:22 Dose: 50 mg Allergies Allergies Allergy/AdvReac Type Severity Reaction Status Date / Time amoxicillin [AMOXICILLIN] Allergy Severe Anaphylaxis Verified 02/05/24 10:21 aspirin [ASA] Allergy Severe RASH/FEVER/ Verified 02/05/24 10:21 VOMITING latex [LATEX] Allergy Severe Rash Verified 02/05/24 10:21 Penicillins [PENICILLINS] Allergy Severe Anaphylaxis Verified 02/05/24 10:21 sulfamethoxazole Allergy Severe Hives Verified 02/05/24 10:21 [From BACTRIM] trimethoprim [From BACTRIM] Allergy Severe Hives Verified 02/05/24 10:21 meloxicam AdvReac Intermediate GI side Verified 02/05/24 10:21 effects lactose AdvReac Unknown Verified 03/29/24 13:34 Assessment & Plan Assessment & Plan (1) Medical clearance for psychiatric admission: Status: Acute Code(s): Z00.8 - Encounter for other general examination Plan Pt is a 53-year-old female with a PMH significant for?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 Medical consult for admission H&P. Mood disorder Plan as per Psychiatry Parkinsonism Continue carbidopa levodopa, benztropine Hx of PE/IVC thrombus Continue Eliquis Kfa-rmsetxb-xfjpsnskz type 2 diabetes Continue metformin Encouraged diabetic diet and diabetic snacking GERD PPI HLD Continue statin Thank you for allowing us to participate in the care of this patient. Signing off at this time. Please re-consult if any acute complaints or issues arise. 03/29/24: Tolerating increase of Invega, continue dosages Re-review of diagnostics-repeat urine culture from [facility] 03/30/2024: Continue current regimen and plans 03/31/2024: Continue current regimen and plans. Hospitalist consult placed for rash over her buttocks Reason for continued inpatient stay Substantial Risk for: med/psych decompensation Time Spent With Patient Time: Total time managing care of this patient today ____ minutes.
--- NOTE | 2024-03-31 12:23 | PM.EVENT ---
Event Note Date of Service: 03/31/24 Event Note: Hospitalist consult for rash on buttocks concerning for fungal infection. Empirically treat with nystatin cream b.i.d. thank you for allowing us to participate in the care this pt. Will sign off for now Please re-consult symptoms persist and/or worsen. Time Spent With Patient Time: Total time managing care of this patient today ____ minutes.
[2024-03-31] MEDS: QUEtiapine Fumarate 25 MG TABLET PO (14:14)
[2024-03-31] MEDS: Nystatin Cream 15 GM TUBE 1 APPL TOPICAL (14:15)
[2024-03-31 20:00] VITALS: BP 128/79; PULSE 68; RESP 16; TEMP 36.8
[2024-03-31 20:57] VITALS: BP 130/75
[2024-03-31] MEDS: traZODone HCL 50 MG TABLET PO (20:57)
[2024-03-31] MEDS: guaiFENesin DM 100/10/5 ML 5 ML SYRUP PO (21:05)
[2024-03-31 21:20] LABS: Glucose, Whole Blood 163 mg/dL (60-115)
[2024-04-01] MEDS: Omeprazole 20 MG CAPSULE.DR PO (06:20)
[2024-04-01 08:00] VITALS: BP 121/57; PULSE 104; TEMP 36.5; O2SAT 95
[2024-04-01 08:25] LABS: Magnesium 1.4 mg/dL (1.6-2.6)
[2024-04-01 08:26] LABS: Glucose, Whole Blood 151 mg/dL (60-115)
[2024-04-01] MEDS: Furosemide 20 MG TABLET PO (08:58)
[2024-04-01] MEDS: Multivitamin TABLET 1 TAB PO (08:59)
[2024-04-01] MEDS: Benztropine Mesylate 0.5 MG TABLET PO (08:59)
[2024-04-01] MEDS: QUEtiapine Fumarate 50 MG TABLET PO (08:59)
[2024-04-01] MEDS: Magnesium Oxide 400 MG TABLET PO (08:59)
[2024-04-01] MEDS: Ferrous Sulfate 324 MG TABLET.DR PO (08:59)
[2024-04-01] MEDS: cloNIDine HCL 0.1 MG TABLET PO ×2 (08:59→20:26)
[2024-04-01] MEDS: Apixaban 5 MG TABLET PO ×2 (08:59→20:44)
[2024-04-01] MEDS: Atorvastatin Calcium 40 MG TABLET PO (08:59)
[2024-04-01] MEDS: metFORMIN HCl 500 MG TABLET PO ×2 (08:59→17:35)
[2024-04-01] MEDS: Carbidopa/Levodopa 25/100 TABLET 0.5 TAB PO ×3 (09:00→20:24)
[2024-04-01] MEDS: Paliperidone ER 3 MG TAB.ER.24 4.5 MG PO (09:01)
[2024-04-01] MEDS: TiZANidine HCL 4 MG TABLET 2 MG PO ×3 (09:02→20:25)
[2024-04-01] MEDS: Cholestyramine (With Sugar) 4 GM POWD.PACK PO (09:03)
[2024-04-01] MEDS: Dry Mouth Spray 60 ML SPRAY 1 SPRAY MUCOUS MEM (09:12)
--- NOTE | 2024-04-01 13:17 | P.PNPSI_ITS ---
Subjective Subjective Date of Service: 04/01/24 Reason For Visit: Bipolar disorder II, PTSD Subjective Notes: Conditional Voluntary Healthcare Proxy: No Guardianship: No Medical Problems Affecting Mental Status: No Interim History: Magnesium low this a.m. 1.4 Supplementation initiated. Team report some diarrhea over the weekend with rash on buttocks which was referred to hospitalist consultation. Nystatin ordered. Team reports pt is more independent on the unit with encouragement. Pt reports poor sleep last night, the bed is not so comfortable . Pt able to talk with her brother over the weekend which she found supportive. Reports a decrease in voices, depression is OK and she reports feeling safe on the unit. Medication Compliance: Yes Side effects from medications: No Attending Groups: Intermittent Review of Systems Acute medical concerns: No Buttock rash- my bottom was sore. Review of Systems Review of Systems Buttock rash Mental Status Exam Mental Status Exam Patient Appearance: Fatigued and Appropriate Patient Orientation: Person, Place, Time and Situation Level of Consciousness: Alert Patient Behavior: Appropriate, Talkative, Cooperative, Passive, Anxious, Fatigued, Distractible and Good Eye Contact Mood Description: Depressed and Anxious Affect Description: Flat Patient Cognition Impaired: No Ability to Follow Directions: Good Speech Pattern: Spontaneous Speech Memory Description: Episodic Impaired Hallucinations: Auditory Perceptual Disturbances: Depersonalization Thought Process: Rumination Thought Content: positive for Circumstantial and positive for Perseveration Depressive Symptoms: Thoughts of /Suicide (denies) Judgement: Fair Diagnostics Vital Signs (24Hr): Vital Signs - 24 hr 03/31/24 20:00 03/31/24 20:57 04/01/24 08:00 Temperature 98.3 F 97.7 F Pulse Rate 68 104 H Respiratory Rate 16 Blood Pressure 128/79 130/75 121/57 L Pulse Oximetry 95 Oxygen Delivery Method Room Air Room Air BMI result Body Mass Index 29.4 Labs 03/28/24 09:01 Labs: Laboratory Results - last 48 hr 03/30/24 03/31/24 03/31/24 21:03 08:04 21:14 POC Glucose 164 H 138 H 163 H Magnesium 04/01/24 04/01/24 07:55 08:15 POC Glucose 151 H Magnesium 1.4 L* Medications Medications Current Medications Acetaminophen (Acetaminophen 325 Mg Tablet) 650 mg PO Q6H PRN PRN Reason: Headache/Pain Mild Scale (1-3) Al Hydroxide/Mg Hydroxide (Magnesium Hydrox/Alum Hydrox 30 Ml Oral.Susp) 30 ml PO Q6H PRN PRN Reason: Heartburn/Nausea Apixaban (Apixaban 5 Mg Tablet) 5 mg PO BID REPLACED BY [facility] Last Admin: 04/01/24 08:59 Dose: 5 mg Atorvastatin Calcium (Atorvastatin Calcium 40 Mg Tablet) 40 mg PO DAILY REPLACED BY [facility] Last Admin: 04/01/24 08:59 Dose: 40 mg Benztropine Mesylate (Benztropine Mesylate 0.5 Mg Tablet) 0.5 mg PO DAILY REPLACED BY [facility] Last Admin: 04/01/24 08:59 Dose: 0.5 mg Carbidopa/Levodopa (Carbidopa/Levodopa 25/100 Tablet) 0.5 tab PO TID REPLACED BY [facility] Last Admin: 04/01/24 09:00 Dose: 0.5 tab Cholestyramine Resin (Cholestyramine (With Sugar) 4 Gm Powd.Pack) 4 gm PO DAILY PRN PRN Reason: diarrhea flare Last Admin: 04/01/24 09:03 Dose: 4 gm Clonidine HCl (Clonidine Hcl 0.1 Mg Tablet) 0.1 mg PO BID REPLACED BY [facility]; Protocol Last Admin: 04/01/24 08:59 Dose: 0.1 mg Ferrous Sulfate (Ferrous Sulfate 324 Mg Tablet.Dr) 324 mg PO DAILY REPLACED BY [facility] Last Admin: 04/01/24 08:59 Dose: 324 mg Furosemide (Furosemide 20 Mg Tablet) 20 mg PO DAILY REPLACED BY [facility]; Protocol Last Admin: 04/01/24 08:58 Dose: 20 mg Guaifenesin/Dextromethorphan (Guaifenesin Dm 100/10/5 Ml 5 Ml Syrup) 5 ml PO Q4H PRN PRN Reason: Cough Last Admin: 03/31/24 21:05 Dose: 5 ml Hydroxyzine HCl (Hydroxyzine Hcl 25 Mg Tablet) 25 mg PO Q6H PRN PRN Reason: Anxiety Lidocaine (Lidocaine 4 % Patch Adh..Patch) 1 patch TRANSDERMA DAILY REPLACED BY [facility]; Protocol Last Admin: 04/01/24 09:12 Dose: Not Given Loperamide HCl (Loperamide Hcl 2 Mg Capsule) 2 mg PO Q6H PRN PRN Reason: Diarrhea Last Admin: 03/28/24 04:10 Dose: 2 mg Magnesium Hydroxide (Milk Of Magnesia 30 Ml Oral.Susp) 30 ml PO DAILY PRN PRN Reason: Constipation Magnesium Oxide (Magnesium Oxide 400 Mg Tablet) 400 mg PO DAILY REPLACED BY [facility] Last Admin: 04/01/24 08:59 Dose: 400 mg Metformin HCl (Metformin Hcl 500 Mg Tablet) 500 mg PO BIDWM REPLACED BY [facility] Last Admin: 04/01/24 08:59 Dose: 500 mg Multivitamins/Vitamin C (Multivitamin Tablet) 1 tab PO DAILY REPLACED BY [facility] Last Admin: 04/01/24 08:59 Dose: 1 tab Nystatin (Nystatin Cream 15 Gm Tube) 1 appl TOPICAL BID REPLACED BY [facility]; Protocol Last Admin: 03/31/24 22:00 Dose: Not Given Omeprazole (Omeprazole 20 Mg Capsule.Dr) 20 mg PO DAILY@0630 REPLACED BY [facility] Last Admin: 04/01/24 06:20 Dose: 20 mg Paliperidone (Paliperidone Er 3 Mg Tab.Er.24) 4.5 mg PO DAILY REPLACED BY [facility] Last Admin: 04/01/24 09:01 Dose: 4.5 mg Quetiapine Fumarate (Quetiapine Fumarate 50 Mg Tablet) 50 mg PO DAILY REPLACED BY [facility] Last Admin: 04/01/24 08:59 Dose: 50 mg Quetiapine Fumarate (Quetiapine Fumarate 25 Mg Tablet) 25 mg PO TID PRN PRN Reason: anxiety Last Admin: 03/31/24 14:14 Dose: 25 mg Quetiapine Fumarate 200 mg/ (Quetiapine Fumarate 50 mg) 250 mg PO BEDTIME REPLACED BY [facility] Last Admin: 03/31/24 20:58 Dose: 250 mg Saliva Substitute (Dry Mouth [place] 60 Ml [place]) 1 spray MUCOUS MEM Q2H PRN PRN Reason: Dry Mouth Last Admin: 04/01/24 09:12 Dose: 1 spray Tizanidine HCl (Tizanidine Hcl 4 Mg Tablet) 2 mg PO TID REPLACED BY [facility] Last Admin: 04/01/24 09:02 Dose: 2 mg Trazodone HCl (Trazodone Hcl 50 Mg Tablet) 50 mg PO BEDTIME MRX1 PRN PRN Reason: Insomnia Last Admin: 03/31/24 20:57 Dose: 50 mg Allergies Allergies Allergy/AdvReac Type Severity Reaction Status Date / Time amoxicillin [AMOXICILLIN] Allergy Severe Anaphylaxis Verified 02/05/24 10:21 aspirin [ASA] Allergy Severe RASH/FEVER/ Verified 02/05/24 10:21 VOMITING latex [LATEX] Allergy Severe Rash Verified 02/05/24 10:21 Penicillins [PENICILLINS] Allergy Severe Anaphylaxis Verified 02/05/24 10:21 sulfamethoxazole Allergy Severe Hives Verified 02/05/24 10:21 [From BACTRIM] trimethoprim [From BACTRIM] Allergy Severe Hives Verified 02/05/24 10:21 meloxicam AdvReac Intermediate GI side Verified 02/05/24 10:21 effects lactose AdvReac Unknown Verified 03/29/24 13:34 Assessment & Plan Assessment & Plan (1) Schizoaffective disorder: Status: Acute Code(s): F25.9 - Schizoaffective disorder, unspecified (2) PTSD (post-traumatic stress disorder): Status: Acute Code(s): F43.10 - Post-traumatic stress disorder, unspecified Plan Pt is a 53-year-old female with a PMH significant for?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 Medical consult for admission H&P. Mood disorder Plan as per Psychiatry Parkinsonism Continue carbidopa levodopa, benztropine Hx of PE/IVC thrombus Continue Eliquis Jnb-ppskjti-apzojlkph type 2 diabetes Continue metformin Encouraged diabetic diet and diabetic snacking GERD PPI HLD Continue statin Thank you for allowing us to participate in the care of this patient. Signing off at this time. Please re-consult if any acute complaints or issues arise. 03/29/24: Tolerating increase of Invega, continue dosages Re-review of diagnostics-repeat urine culture from [facility] 03/30/2024: Continue current regimen and plans 03/31/2024: Continue current regimen and plans. Hospitalist consult placed for rash over her buttocks 04/01/24: Magnesium 400 mg daily. Repeat Mg on 04/05/24 Reason for continued inpatient stay Substantial Risk for: rapid decompensation and med/psych decompensation Time Spent With Patient Time: Total time managing care of this patient today ____ minutes.
[2024-04-01] MEDS: Nystatin Cream 15 GM TUBE 1 APPL TOPICAL (14:47)
[2024-04-01 19:45] VITALS: BP 128/82; PULSE 102; TEMP 36.4; O2SAT 97
[2024-04-01] MEDS: traZODone HCL 50 MG TABLET PO (20:24)
[2024-04-01 20:56] LABS: Glucose, Whole Blood 170 mg/dL (60-115)
--- NOTE | 2024-04-02 | ECG_ITS ---
Test Reason : low Mg Blood Pressure : */* mmHG Vent. Rate : 86 BPM Atrial Rate : 86 BPM P-R Int : 130 ms QRS Dur : 82 ms QT Int : 374 ms P-R-T Axes : 69 50 30 degrees QTcB Int : 447 ms Normal sinus rhythm Normal ECG No previous ECGs available Referred By: Cherrie Hamm Electronically Signed By: CHANDLER PÉREZ MD
[2024-04-02] MEDS: Loperamide HCl 2 MG CAPSULE PO (05:57)
[2024-04-02] MEDS: Omeprazole 20 MG CAPSULE.DR PO (05:57)
[2024-04-02] MEDS: Dry Mouth Spray 60 ML SPRAY 1 SPRAY MUCOUS MEM ×3 (05:57→20:35)
--- NOTE | 2024-04-02 06:02 | PC.NURSE ---
Patient c/o diarrhea. Immodium administered. Effect pending.
[2024-04-02 07:53] VITALS: BP 146/99; PULSE 94; RESP 18; TEMP 36; O2SAT 95
[2024-04-02 07:56] LABS: Glucose, Whole Blood 138 mg/dL (60-115)
[2024-04-02] MEDS: Cholestyramine (With Sugar) 4 GM POWD.PACK PO (08:20)
[2024-04-02] MEDS: Ferrous Sulfate 324 MG TABLET.DR PO (08:21)
[2024-04-02] MEDS: metFORMIN HCl 500 MG TABLET PO ×2 (08:22→16:10)
[2024-04-02] MEDS: QUEtiapine Fumarate 50 MG TABLET PO (08:22)
[2024-04-02] MEDS: Magnesium Oxide 400 MG TABLET PO (08:22)
[2024-04-02] MEDS: Furosemide 20 MG TABLET PO (08:22)
[2024-04-02] MEDS: Atorvastatin Calcium 40 MG TABLET PO (08:23)
[2024-04-02] MEDS: Paliperidone ER 3 MG TAB.ER.24 4.5 MG PO (08:23)
[2024-04-02] MEDS: Carbidopa/Levodopa 25/100 TABLET 0.5 TAB PO ×3 (08:23→20:21)
[2024-04-02] MEDS: cloNIDine HCL 0.1 MG TABLET PO ×2 (08:24→20:20)
[2024-04-02] MEDS: Multivitamin TABLET 1 TAB PO (08:24)
[2024-04-02] MEDS: Benztropine Mesylate 0.5 MG TABLET PO (08:24)
[2024-04-02] MEDS: TiZANidine HCL 4 MG TABLET 2 MG PO ×3 (08:25→20:18)
[2024-04-02] MEDS: Apixaban 5 MG TABLET PO ×2 (08:25→20:25)
--- NOTE | 2024-04-02 10:43 | HO.PSYCHPN ---
Subjective Subjective Date of Service: 04/02/24 Reason For Visit: Bipolar disorder II, PTSD Interim History: repeat Magnesium level today- some improvement 1.5 EKG wnl Qtc 447. Pt slept. Pt reported feeling better, but still feeling depressed. No SI/HI. No overt psychosis or delusional content noted or reported. Visible on the unit. taking medications as prescribed. Review of Systems Review of Systems Buttock rash Yes all other systems are reviewed and are negative Mental Status Exam Mental Status Exam Patient Appearance: Fatigued and Appropriate Patient Orientation: Person, Place, Time and Situation Level of Consciousness: Alert Patient Behavior: Appropriate, Talkative, Cooperative, Passive, Anxious, Fatigued, Distractible and Good Eye Contact Mood Description: Depressed and Anxious Affect Description: Flat Patient Cognition Impaired: No Ability to Follow Directions: Good Speech Pattern: Spontaneous Speech Memory Description: Episodic Impaired Diagnostics Vital Signs (24Hr): Vital Signs - 24 hr 04/01/24 19:45 04/02/24 07:53 Temperature 97.6 F 96.8 F Pulse Rate 102 H 94 Respiratory Rate 18 Blood Pressure 128/82 146/99 H Pulse Oximetry 97 95 Oxygen Delivery Method Room Air Room Air BMI result Body Mass Index 29.4 Labs 03/28/24 09:01 Labs: Laboratory Results - last 48 hr 03/31/24 04/01/24 04/01/24 21:14 07:55 08:15 POC Glucose 163 H 151 H Magnesium 1.4 L* 04/01/24 04/02/24 20:40 07:53 POC Glucose 170 H 138 H Magnesium Medications Medications Current Medications Acetaminophen (Acetaminophen 325 Mg Tablet) 650 mg PO Q6H PRN PRN Reason: Headache/Pain Mild Scale (1-3) Al Hydroxide/Mg Hydroxide (Magnesium Hydrox/Alum Hydrox 30 Ml Oral.Susp) 30 ml PO Q6H PRN PRN Reason: Heartburn/Nausea Apixaban (Apixaban 5 Mg Tablet) 5 mg PO BID [facility] Last Admin: 04/02/24 08:25 Dose: 5 mg Atorvastatin Calcium (Atorvastatin Calcium 40 Mg Tablet) 40 mg PO DAILY [facility] Last Admin: 04/02/24 08:23 Dose: 40 mg Benztropine Mesylate (Benztropine Mesylate 0.5 Mg Tablet) 0.5 mg PO DAILY [facility] Last Admin: 04/02/24 08:24 Dose: 0.5 mg Carbidopa/Levodopa (Carbidopa/Levodopa 25/100 Tablet) 0.5 tab PO TID [facility] Last Admin: 04/02/24 08:23 Dose: 0.5 tab Cholestyramine Resin (Cholestyramine (With Sugar) 4 Gm Powd.Pack) 4 gm PO DAILY PRN PRN Reason: diarrhea flare Last Admin: 04/02/24 08:20 Dose: 4 gm Clonidine HCl (Clonidine Hcl 0.1 Mg Tablet) 0.1 mg PO BID [facility]; Protocol Last Admin: 04/02/24 08:24 Dose: 0.1 mg Ferrous Sulfate (Ferrous Sulfate 324 Mg Tablet.) 324 mg PO DAILY [facility] Last Admin: 04/02/24 08:21 Dose: 324 mg Furosemide (Furosemide 20 Mg Tablet) 20 mg PO DAILY [facility]; Protocol Last Admin: 04/02/24 08:22 Dose: 20 mg Guaifenesin/Dextromethorphan (Guaifenesin Dm 100/10/5 Ml 5 Ml Syrup) 5 ml PO Q4H PRN PRN Reason: Cough Last Admin: 03/31/24 21:05 Dose: 5 ml Hydroxyzine HCl (Hydroxyzine Hcl 25 Mg Tablet) 25 mg PO Q6H PRN PRN Reason: Anxiety Lidocaine (Lidocaine 4 % Patch Adh..Patch) 1 patch TRANSDERMA DAILY [facility]; Protocol Last Admin: 04/02/24 08:28 Dose: 1 patch Loperamide HCl (Loperamide Hcl 2 Mg Capsule) 2 mg PO Q6H PRN PRN Reason: Diarrhea Last Admin: 04/02/24 05:57 Dose: 2 mg Magnesium Hydroxide (Milk Of Magnesia 30 Ml Oral.Susp) 30 ml PO DAILY PRN PRN Reason: Constipation Magnesium Oxide (Magnesium Oxide 400 Mg Tablet) 400 mg PO DAILY [facility] Last Admin: 04/02/24 08:22 Dose: 400 mg Metformin HCl (Metformin Hcl 500 Mg Tablet) 500 mg PO BIDWM [facility] Last Admin: 04/02/24 08:22 Dose: 500 mg Multivitamins/Vitamin C (Multivitamin Tablet) 1 tab PO DAILY [facility] Last Admin: 04/02/24 08:24 Dose: 1 tab Nystatin (Nystatin Cream 15 Gm Tube) 1 appl TOPICAL BID [facility]; Protocol Last Admin: 04/02/24 08:30 Dose: 1 appl Omeprazole (Omeprazole 20 Mg Capsule.) 20 mg PO DAILY@0630 [facility] Last Admin: 04/02/24 05:57 Dose: 20 mg Paliperidone (Paliperidone Er 3 Mg Tab.Er.24) 4.5 mg PO DAILY [facility] Last Admin: 04/02/24 08:23 Dose: 4.5 mg Quetiapine Fumarate (Quetiapine Fumarate 50 Mg Tablet) 50 mg PO DAILY [facility] Last Admin: 04/02/24 08:22 Dose: 50 mg Quetiapine Fumarate (Quetiapine Fumarate 25 Mg Tablet) 25 mg PO TID PRN PRN Reason: anxiety Last Admin: 03/31/24 14:14 Dose: 25 mg Quetiapine Fumarate 200 mg/ (Quetiapine Fumarate 50 mg) 250 mg PO BEDTIME [facility] Last Admin: 04/01/24 20:24 Dose: 250 mg Saliva Substitute (Dry Mouth [place] 60 Ml [place]) 1 spray MUCOUS MEM Q2H PRN PRN Reason: Dry Mouth Last Admin: 04/02/24 08:25 Dose: 1 spray Tizanidine HCl (Tizanidine Hcl 4 Mg Tablet) 2 mg PO TID [facility] Last Admin: 04/02/24 08:25 Dose: 2 mg Trazodone HCl (Trazodone Hcl 50 Mg Tablet) 50 mg PO BEDTIME MRX1 PRN PRN Reason: Insomnia Last Admin: 04/01/24 20:24 Dose: 50 mg Allergies Allergies Allergy/AdvReac Type Severity Reaction Status Date / Time amoxicillin [AMOXICILLIN] Allergy Severe Anaphylaxis Verified 02/05/24 10:21 aspirin [ASA] Allergy Severe RASH/FEVER/ Verified 02/05/24 10:21 VOMITING latex [LATEX] Allergy Severe Rash Verified 02/05/24 10:21 Penicillins [PENICILLINS] Allergy Severe Anaphylaxis Verified 02/05/24 10:21 sulfamethoxazole Allergy Severe Hives Verified 02/05/24 10:21 [From BACTRIM] trimethoprim [From BACTRIM] Allergy Severe Hives Verified 02/05/24 10:21 meloxicam AdvReac Intermediate GI side Verified 02/05/24 10:21 effects lactose AdvReac Unknown Verified 03/29/24 13:34 Assessment & Plan Assessment & Plan (1) Schizoaffective disorder: Status: Acute Code(s): F25.9 - Schizoaffective disorder, unspecified (2) PTSD (post-traumatic stress disorder): Status: Acute Code(s): F43.10 - Post-traumatic stress disorder, unspecified Plan Pt is a 53-year-old female with a PMH significant for?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 Medical consult for admission H&P. Mood disorder Plan as per Psychiatry Parkinsonism Continue carbidopa levodopa, benztropine Hx of PE/IVC thrombus Continue Eliquis Epz-fgxtbez-fofrsaphl type 2 diabetes Continue metformin Encouraged diabetic diet and diabetic snacking GERD PPI HLD Continue statin Thank you for allowing us to participate in the care of this patient. Signing off at this time. Please re-consult if any acute complaints or issues arise. 03/29/24: Tolerating increase of Invega, continue dosages Re-review of diagnostics-repeat urine culture from [facility] 03/30/2024: Continue current regimen and plans 03/31/2024: Continue current regimen and plans. Hospitalist consult placed for rash over her buttocks 04/01/24: Magnesium 400 mg daily. Repeat Mg on 04/05/2404/02 continue tx. improvement in Mg 1.5, EKG with no changes due to low mag. Reason for continued inpatient stay Substantial Risk for: inability to function Time Spent With Patient Time: Total time managing care of this patient today ____ minutes.
[2024-04-02 11:45] LABS: Magnesium 1.5 mg/dL (1.6-2.6)
[2024-04-02 20:00] VITALS: BP 136/79; PULSE 108; RESP 16; TEMP 36.4; O2SAT 96
[2024-04-02 20:11] LABS: Glucose, Whole Blood 142 mg/dL (60-115)
[2024-04-02 20:20] VITALS: BP 130/62
[2024-04-02] MEDS: traZODone HCL 50 MG TABLET PO (20:20)
[2024-04-03 08:00] VITALS: BP 135/95; PULSE 92; TEMP 36.8; O2SAT 94
[2024-04-03 08:14] LABS: Glucose, Whole Blood 147 mg/dL (60-115)
[2024-04-03] MEDS: Magnesium Oxide 400 MG TABLET PO (08:32)
[2024-04-03] MEDS: Lidocaine 4 % Patch ADH..PATCH 1 PATCH TRANSDERMA (08:33)
[2024-04-03] MEDS: Atorvastatin Calcium 40 MG TABLET PO (08:34)
[2024-04-03] MEDS: Cholestyramine (With Sugar) 4 GM POWD.PACK PO (08:34)
[2024-04-03] MEDS: Furosemide 20 MG TABLET PO (08:35)
[2024-04-03] MEDS: Multivitamin TABLET 1 TAB PO (08:35)
[2024-04-03] MEDS: Benztropine Mesylate 0.5 MG TABLET PO (08:35)
[2024-04-03] MEDS: Apixaban 5 MG TABLET PO ×2 (08:35→20:20)
[2024-04-03] MEDS: metFORMIN HCl 500 MG TABLET PO ×2 (08:36→17:36)
[2024-04-03] MEDS: Ferrous Sulfate 324 MG TABLET.DR PO (08:36)
[2024-04-03] MEDS: Carbidopa/Levodopa 25/100 TABLET 0.5 TAB PO ×3 (08:36→20:19)
[2024-04-03] MEDS: cloNIDine HCL 0.1 MG TABLET PO ×2 (08:36→20:20)
[2024-04-03] MEDS: Nystatin Cream 15 GM TUBE 1 APPL TOPICAL (09:05)
[2024-04-03] MEDS: QUEtiapine Fumarate 50 MG TABLET PO (09:05)
[2024-04-03] MEDS: Paliperidone ER 3 MG TAB.ER.24 4.5 MG PO (09:05)
[2024-04-03] MEDS: TiZANidine HCL 4 MG TABLET 2 MG PO ×3 (09:05→20:21)
--- NOTE | 2024-04-03 15:16 | P.PNPSI_ITS ---
Subjective Subjective Date of Service: 04/03/24 Reason For Visit: Bipolar disorder II, PTSD Subjective Notes: Conditional Voluntary Healthcare Proxy: No Guardianship: No Medical Problems Affecting Mental Status: No Interim History: I still cannot dress myself. I do need help with the shower. The bed is not comfortable . The med increase is pretty good. Pt asks if she may have a medical bed when she returns to [facility]. Also asks for sweat pants for increase in comfort, takes size 2x. Finds group helpful, her favorite, anger group Comfortable in milieu, working on goals, appears improved. Medication Compliance: Yes Side effects from medications: No Attending Groups: Yes Review of Systems Acute medical concerns: No Review of Systems Review of Systems denies today Mental Status Exam Mental Status Exam Patient Appearance: Appropriate Patient Orientation: Person, Place, Time and Situation Level of Consciousness: Alert Patient Behavior: Appropriate, Talkative, Cooperative, Passive, Anxious, Distractible and Good Eye Contact Mood Description: Anxious Affect Description: Flat Patient Cognition Impaired: No Ability to Follow Directions: Good Speech Pattern: Spontaneous Speech Memory Description: Episodic Impaired Diagnostics Vital Signs (24Hr): Vital Signs - 24 hr 04/02/24 20:00 04/02/24 20:20 04/03/24 08:00 Temperature 97.5 F 98.2 F Pulse Rate 108 H 92 Respiratory Rate 16 Blood Pressure 136/79 130/62 135/95 H Pulse Oximetry 96 94 Oxygen Delivery Method Room Air Room Air BMI result Body Mass Index 29.4 Labs 04/04/24 08:06 Labs: Laboratory Results - last 48 hr 04/01/24 04/02/24 04/02/24 20:40 07:53 11:21 POC Glucose 170 H 138 H Magnesium 1.5 L 04/02/24 04/03/24 20:06 08:01 POC Glucose 142 H 147 H Magnesium Medications Medications Current Medications Acetaminophen (Acetaminophen 325 Mg Tablet) 650 mg PO Q6H PRN PRN Reason: Headache/Pain Mild Scale (1-3) Al Hydroxide/Mg Hydroxide (Magnesium Hydrox/Alum Hydrox 30 Ml Oral.Susp) 30 ml PO Q6H PRN PRN Reason: Heartburn/Nausea Apixaban (Apixaban 5 Mg Tablet) 5 mg PO BID [facility] Last Admin: 04/03/24 08:35 Dose: 5 mg Atorvastatin Calcium (Atorvastatin Calcium 40 Mg Tablet) 40 mg PO DAILY [facility] Last Admin: 04/03/24 08:34 Dose: 40 mg Benztropine Mesylate (Benztropine Mesylate 0.5 Mg Tablet) 0.5 mg PO DAILY [facility] Last Admin: 04/03/24 08:35 Dose: 0.5 mg Carbidopa/Levodopa (Carbidopa/Levodopa 25/100 Tablet) 0.5 tab PO TID [facility] Last Admin: 04/03/24 15:05 Dose: 0.5 tab Cholestyramine Resin (Cholestyramine (With Sugar) 4 Gm Powd.Pack) 4 gm PO DAILY [facility] Last Admin: 04/03/24 08:34 Dose: 4 gm Clonidine HCl (Clonidine Hcl 0.1 Mg Tablet) 0.1 mg PO BID [facility]; Protocol Last Admin: 04/03/24 08:36 Dose: 0.1 mg Ferrous Sulfate (Ferrous Sulfate 324 Mg Tablet.Dr) 324 mg PO DAILY [facility] Last Admin: 04/03/24 08:36 Dose: 324 mg Furosemide (Furosemide 20 Mg Tablet) 20 mg PO DAILY [facility]; Protocol Last Admin: 04/03/24 08:35 Dose: 20 mg Guaifenesin/Dextromethorphan (Guaifenesin Dm 100/10/5 Ml 5 Ml Syrup) 5 ml PO Q4H PRN PRN Reason: Cough Last Admin: 03/31/24 21:05 Dose: 5 ml Hydroxyzine HCl (Hydroxyzine Hcl 25 Mg Tablet) 25 mg PO Q6H PRN PRN Reason: Anxiety Lidocaine (Lidocaine 4 % Patch Adh..Patch) 1 patch TRANSDERMA DAILY [facility]; Protocol Last Admin: 04/03/24 08:33 Dose: 1 patch Loperamide HCl (Loperamide Hcl 2 Mg Capsule) 2 mg PO Q6H PRN PRN Reason: Diarrhea Last Admin: 04/02/24 05:57 Dose: 2 mg Magnesium Hydroxide (Milk Of Magnesia 30 Ml Oral.Susp) 30 ml PO DAILY PRN PRN Reason: Constipation Magnesium Oxide (Magnesium Oxide 400 Mg Tablet) 400 mg PO DAILY [facility] Last Admin: 04/03/24 08:32 Dose: 400 mg Metformin HCl (Metformin Hcl 500 Mg Tablet) 500 mg PO BIDWM [facility] Last Admin: 04/03/24 08:36 Dose: 500 mg Multivitamins/Vitamin C (Multivitamin Tablet) 1 tab PO DAILY [facility] Last Admin: 04/03/24 08:35 Dose: 1 tab Nystatin (Nystatin Cream 15 Gm Tube) 1 appl TOPICAL BID [facility]; Protocol Last Admin: 04/03/24 09:05 Dose: 1 appl Omeprazole (Omeprazole 20 Mg Capsule.Dr) 20 mg PO DAILY@0630 [facility] Last Admin: 04/03/24 06:54 Dose: Not Given Paliperidone (Paliperidone Er 3 Mg Tab.Er.24) 4.5 mg PO DAILY [facility] Last Admin: 04/03/24 09:05 Dose: 4.5 mg Quetiapine Fumarate (Quetiapine Fumarate 50 Mg Tablet) 50 mg PO DAILY [facility] Last Admin: 04/03/24 09:05 Dose: 50 mg Quetiapine Fumarate (Quetiapine Fumarate 25 Mg Tablet) 25 mg PO TID PRN PRN Reason: anxiety Last Admin: 03/31/24 14:14 Dose: 25 mg Quetiapine Fumarate 200 mg/ (Quetiapine Fumarate 50 mg) 250 mg PO BEDTIME [facility] Last Admin: 04/02/24 20:21 Dose: 250 mg Saliva Substitute (Dry Mouth [place] 60 Ml [place]) 1 spray MUCOUS MEM Q2H PRN PRN Reason: Dry Mouth Last Admin: 04/02/24 20:35 Dose: 1 spray Tizanidine HCl (Tizanidine Hcl 4 Mg Tablet) 2 mg PO TID [facility] Last Admin: 04/03/24 15:06 Dose: 2 mg Trazodone HCl (Trazodone Hcl 50 Mg Tablet) 50 mg PO BEDTIME MRX1 PRN PRN Reason: Insomnia Last Admin: 04/02/24 20:20 Dose: 50 mg Allergies Allergies Allergy/AdvReac Type Severity Reaction Status Date / Time amoxicillin [AMOXICILLIN] Allergy Severe Anaphylaxis Verified 02/05/24 10:21 aspirin [ASA] Allergy Severe RASH/FEVER/ Verified 02/05/24 10:21 VOMITING latex [LATEX] Allergy Severe Rash Verified 02/05/24 10:21 Penicillins [PENICILLINS] Allergy Severe Anaphylaxis Verified 02/05/24 10:21 sulfamethoxazole Allergy Severe Hives Verified 02/05/24 10:21 [From BACTRIM] trimethoprim [From BACTRIM] Allergy Severe Hives Verified 02/05/24 10:21 meloxicam AdvReac Intermediate GI side Verified 02/05/24 10:21 effects lactose AdvReac Unknown Verified 03/29/24 13:34 Assessment & Plan Assessment & Plan (1) Schizoaffective disorder: Status: Acute Code(s): F25.9 - Schizoaffective disorder, unspecified (2) PTSD (post-traumatic stress disorder): Status: Acute Code(s): F43.10 - Post-traumatic stress disorder, unspecified Plan Pt is a 53-year-old female with a PMH significant for?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 Medical consult for admission H&P. Mood disorder Plan as per Psychiatry Parkinsonism Continue carbidopa levodopa, benztropine Hx of PE/IVC thrombus Continue Eliquis [id number] type 2 diabetes Continue metformin Encouraged diabetic diet and diabetic snacking GERD PPI HLD Continue statin Thank you for allowing us to participate in the care of this patient. Signing off at this time. Please re-consult if any acute complaints or issues arise. 03/29/24: Tolerating increase of Invega, continue dosages Re-review of diagnostics-repeat urine culture from [facility] 03/30/2024: Continue current regimen and plans 03/31/2024: Continue current regimen and plans. Hospitalist consult placed for rash over her buttocks 04/01/24: Magnesium 400 mg daily. Repeat Mg on 04/05/2404/02 continue tx. improvement in Mg 1.5, EKG with no changes due to low mag. 04/03 continue tx. Reason for continued inpatient stay Substantial Risk for: rapid decompensation Time Spent With Patient Time: Total time managing care of this patient today ____ minutes.
[2024-04-03 19:38] VITALS: BP 121/77; PULSE 103; TEMP 36.8; O2SAT 94
[2024-04-03 20:09] LABS: Glucose, Whole Blood 180 mg/dL (60-115)
[2024-04-04 07:58] VITALS: BP 120/75; PULSE 101; TEMP 36.6; O2SAT 99
[2024-04-04 08:01] LABS: Glucose, Whole Blood 145 mg/dL (60-115)
[2024-04-04] MEDS: Cholestyramine (With Sugar) 4 GM POWD.PACK PO (08:11)
[2024-04-04] MEDS: Lidocaine 4 % Patch ADH..PATCH 1 PATCH TRANSDERMA (08:11)
[2024-04-04] MEDS: Apixaban 5 MG TABLET PO ×2 (08:11→20:19)
[2024-04-04] MEDS: Benztropine Mesylate 0.5 MG TABLET PO (08:11)
[2024-04-04] MEDS: cloNIDine HCL 0.1 MG TABLET PO ×2 (08:12→20:23)
[2024-04-04] MEDS: Atorvastatin Calcium 40 MG TABLET PO (08:12)
[2024-04-04] MEDS: TiZANidine HCL 4 MG TABLET 2 MG PO ×3 (08:12→20:21)
[2024-04-04] MEDS: metFORMIN HCl 500 MG TABLET PO ×2 (08:12→19:00)
[2024-04-04] MEDS: QUEtiapine Fumarate 50 MG TABLET PO (08:12)
[2024-04-04] MEDS: Multivitamin TABLET 1 TAB PO (08:12)
[2024-04-04] MEDS: Ferrous Sulfate 324 MG TABLET.DR PO (08:12)
[2024-04-04] MEDS: Magnesium Oxide 400 MG TABLET PO (08:13)
[2024-04-04] MEDS: Carbidopa/Levodopa 25/100 TABLET 0.5 TAB PO ×3 (08:13→20:22)
[2024-04-04] MEDS: Paliperidone ER 3 MG TAB.ER.24 4.5 MG PO (08:14)
[2024-04-04] MEDS: Furosemide 20 MG TABLET PO (08:15)
[2024-04-04 08:35] LABS: Creatinine Clr Calc Pharmacy 73.9; Estimated Glomerular Filt Rate > 60
[2024-04-04] MEDS: Nystatin Cream 15 GM TUBE 1 APPL TOPICAL (09:45)
--- NOTE | 2024-04-04 11:06 | P.PNPSI_ITS ---
Subjective Subjective Date of Service: 04/04/24 Reason For Visit: Bipolar disorder II, PTSD Subjective Notes: Conditional Voluntary Healthcare Proxy: No Guardianship: No Medical Problems Affecting Mental Status: No Interim History: Pt reports she was able to shower independently today. Team confirm this-only needing verbal support. Pt states that she still needs help with dressing herself-encouraged her to ask team when she needs this so they can offer suggestions. Appears brighter, stronger, states she is feeling mildly improved. Medication Compliance: Yes Side effects from medications: No Attending Groups: Yes Review of Systems Acute medical concerns: No Medical Review of Systems: unchanged Review of Systems Review of Systems wanting to feel stronger she reports Mental Status Exam Mental Status Exam Patient Appearance: Appropriate Patient Orientation: Person, Place, Time and Situation Level of Consciousness: Alert Patient Behavior: Appropriate, Talkative, Cooperative, Passive, Anxious, Distractible and Good Eye Contact Mood Description: Anxious Affect Description: Flat Patient Cognition Impaired: No Ability to Follow Directions: Good Speech Pattern: Spontaneous Speech Memory Description: Episodic Impaired Diagnostics Vital Signs (24Hr): Vital Signs - 24 hr 04/03/24 19:38 04/04/24 07:58 Temperature 98.3 F 97.8 F Pulse Rate 103 H 101 H Blood Pressure 121/77 120/75 Pulse Oximetry 94 99 Oxygen Delivery Method Room Air Room Air BMI result Body Mass Index 29.4 Labs 04/04/24 08:06 Labs: Laboratory Results - last 48 hr 04/02/24 04/02/24 04/03/24 11:21 20:06 08:01 Creatinine Estim Creat Clear Calc Estimated GFR POC Glucose 142 H 147 H Magnesium 1.5 L 04/03/24 04/04/24 04/04/24 19:59 07:52 08:06 Creatinine 0.80 Estim Creat Clear Calc 73.9 Estimated GFR > 60 POC Glucose 180 H 145 H Magnesium Medications Medications Current Medications Acetaminophen (Acetaminophen 325 Mg Tablet) 650 mg PO Q6H PRN PRN Reason: Headache/Pain Mild Scale (1-3) Al Hydroxide/Mg Hydroxide (Magnesium Hydrox/Alum Hydrox 30 Ml Oral.Susp) 30 ml PO Q6H PRN PRN Reason: Heartburn/Nausea Apixaban (Apixaban 5 Mg Tablet) 5 mg PO BID [facility] Last Admin: 04/04/24 08:11 Dose: 5 mg Atorvastatin Calcium (Atorvastatin Calcium 40 Mg Tablet) 40 mg PO DAILY [facility] Last Admin: 04/04/24 08:12 Dose: 40 mg Benztropine Mesylate (Benztropine Mesylate 0.5 Mg Tablet) 0.5 mg PO DAILY [facility] Last Admin: 04/04/24 08:11 Dose: 0.5 mg Carbidopa/Levodopa (Carbidopa/Levodopa 25/100 Tablet) 0.5 tab PO TID [facility] Last Admin: 04/04/24 08:13 Dose: 0.5 tab Cholestyramine Resin (Cholestyramine (With Sugar) 4 Gm Powd.Pack) 4 gm PO DAILY [facility] Last Admin: 04/04/24 08:11 Dose: 4 gm Clonidine HCl (Clonidine Hcl 0.1 Mg Tablet) 0.1 mg PO BID [facility]; Protocol Last Admin: 04/04/24 08:12 Dose: 0.1 mg Ferrous Sulfate (Ferrous Sulfate 324 Mg Tablet.Dr) 324 mg PO DAILY [facility] Last Admin: 04/04/24 08:12 Dose: 324 mg Furosemide (Furosemide 20 Mg Tablet) 20 mg PO DAILY [facility]; Protocol Last Admin: 04/04/24 08:15 Dose: 20 mg Guaifenesin/Dextromethorphan (Guaifenesin Dm 100/10/5 Ml 5 Ml Syrup) 5 ml PO Q4H PRN PRN Reason: Cough Last Admin: 03/31/24 21:05 Dose: 5 ml Hydroxyzine HCl (Hydroxyzine Hcl 25 Mg Tablet) 25 mg PO Q6H PRN PRN Reason: Anxiety Lidocaine (Lidocaine 4 % Patch Adh..Patch) 1 patch TRANSDERMA DAILY [facility]; Protocol Last Admin: 04/04/24 08:11 Dose: 1 patch Loperamide HCl (Loperamide Hcl 2 Mg Capsule) 2 mg PO Q6H PRN PRN Reason: Diarrhea Last Admin: 04/02/24 05:57 Dose: 2 mg Magnesium Hydroxide (Milk Of Magnesia 30 Ml Oral.Susp) 30 ml PO DAILY PRN PRN Reason: Constipation Magnesium Oxide (Magnesium Oxide 400 Mg Tablet) 400 mg PO DAILY [facility] Last Admin: 04/04/24 08:13 Dose: 400 mg Metformin HCl (Metformin Hcl 500 Mg Tablet) 500 mg PO BIDWM [facility] Last Admin: 04/04/24 08:12 Dose: 500 mg Multivitamins/Vitamin C (Multivitamin Tablet) 1 tab PO DAILY [facility] Last Admin: 04/04/24 08:12 Dose: 1 tab Nystatin (Nystatin Cream 15 Gm Tube) 1 appl TOPICAL BID [facility]; Protocol Last Admin: 04/03/24 20:22 Dose: Not Given Omeprazole (Omeprazole 20 Mg Capsule.Dr) 20 mg PO DAILY@0630 [facility] Last Admin: 04/04/24 08:07 Dose: Not Given Paliperidone (Paliperidone Er 3 Mg Tab.Er.24) 4.5 mg PO DAILY [facility] Last Admin: 04/04/24 08:14 Dose: 4.5 mg Quetiapine Fumarate (Quetiapine Fumarate 50 Mg Tablet) 50 mg PO DAILY [facility] Last Admin: 04/04/24 08:12 Dose: 50 mg Quetiapine Fumarate (Quetiapine Fumarate 25 Mg Tablet) 25 mg PO TID PRN PRN Reason: anxiety Last Admin: 03/31/24 14:14 Dose: 25 mg Quetiapine Fumarate 200 mg/ (Quetiapine Fumarate 50 mg) 250 mg PO BEDTIME [facility] Last Admin: 04/03/24 20:20 Dose: 250 mg Saliva Substitute (Dry Mouth [place] 60 Ml [place]) 1 spray MUCOUS MEM Q2H PRN PRN Reason: Dry Mouth Last Admin: 04/02/24 20:35 Dose: 1 spray Tizanidine HCl (Tizanidine Hcl 4 Mg Tablet) 2 mg PO TID [facility] Last Admin: 04/04/24 08:12 Dose: 2 mg Trazodone HCl (Trazodone Hcl 50 Mg Tablet) 50 mg PO BEDTIME MRX1 PRN PRN Reason: Insomnia Last Admin: 04/02/24 20:20 Dose: 50 mg Allergies Allergies Allergy/AdvReac Type Severity Reaction Status Date / Time amoxicillin [AMOXICILLIN] Allergy Severe Anaphylaxis Verified 02/05/24 10:21 aspirin [ASA] Allergy Severe RASH/FEVER/ Verified 02/05/24 10:21 VOMITING latex [LATEX] Allergy Severe Rash Verified 02/05/24 10:21 Penicillins [PENICILLINS] Allergy Severe Anaphylaxis Verified 02/05/24 10:21 sulfamethoxazole Allergy Severe Hives Verified 02/05/24 10:21 [From BACTRIM] trimethoprim [From BACTRIM] Allergy Severe Hives Verified 02/05/24 10:21 meloxicam AdvReac Intermediate GI side Verified 02/05/24 10:21 effects lactose AdvReac Unknown Verified 03/29/24 13:34 Assessment & Plan Assessment & Plan (1) Schizoaffective disorder: Status: Acute Code(s): F25.9 - Schizoaffective disorder, unspecified (2) PTSD (post-traumatic stress disorder): Status: Acute Code(s): F43.10 - Post-traumatic stress disorder, unspecified Plan Pt is a 53-year-old female with a PMH significant for?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 Medical consult for admission H&P. Mood disorder Plan as per Psychiatry Parkinsonism Continue carbidopa levodopa, benztropine Hx of PE/IVC thrombus Continue Eliquis [id number] type 2 diabetes Continue metformin Encouraged diabetic diet and diabetic snacking GERD PPI HLD Continue statin Thank you for allowing us to participate in the care of this patient. Signing off at this time. Please re-consult if any acute complaints or issues arise. 03/29/24: Tolerating increase of Invega, continue dosages Re-review of diagnostics-repeat urine culture from [facility] 03/30/2024: Continue current regimen and plans 03/31/2024: Continue current regimen and plans. Hospitalist consult placed for rash over her buttocks 04/01/24: Magnesium 400 mg daily. Repeat Mg on 04/05/2404/02 continue tx. improvement in Mg 1.5, EKG with no changes due to low mag. 04/04 continue tx Reason for continued inpatient stay Substantial Risk for: rapid decompensation Time Spent With Patient Time: Total time managing care of this patient today ____ minutes.
[2024-04-04] MEDS: Dry Mouth Spray 60 ML SPRAY 1 SPRAY MUCOUS MEM ×2 (14:34→20:34)
[2024-04-04 20:00] VITALS: BP 122/79; PULSE 95; TEMP 37.2; O2SAT 97
[2024-04-04 20:23] VITALS: BP 122/72
[2024-04-04 20:24] LABS: Glucose, Whole Blood 152 mg/dL (60-115)
[2024-04-05 08:13] LABS: Glucose, Whole Blood 131 mg/dL (60-115)
[2024-04-05 08:28] VITALS: BP 165/96; PULSE 99; TEMP 36.2; O2SAT 99
[2024-04-05] MEDS: Lidocaine 4 % Patch ADH..PATCH 1 PATCH TRANSDERMA (08:50)
[2024-04-05] MEDS: cloNIDine HCL 0.1 MG TABLET PO ×2 (08:53→21:25)
[2024-04-05] MEDS: Carbidopa/Levodopa 25/100 TABLET 0.5 TAB PO ×3 (08:54→21:24)
[2024-04-05] MEDS: Magnesium Oxide 400 MG TABLET PO (08:54)
[2024-04-05] MEDS: QUEtiapine Fumarate 50 MG TABLET PO (08:55)
[2024-04-05] MEDS: Apixaban 5 MG TABLET PO ×2 (08:55→21:24)
[2024-04-05] MEDS: Atorvastatin Calcium 40 MG TABLET PO (08:55)
[2024-04-05] MEDS: Omeprazole 20 MG CAPSULE.DR PO (08:55)
[2024-04-05] MEDS: metFORMIN HCl 500 MG TABLET PO ×2 (08:56→17:19)
[2024-04-05] MEDS: Furosemide 20 MG TABLET PO (08:56)
[2024-04-05] MEDS: Multivitamin TABLET 1 TAB PO (08:56)
[2024-04-05] MEDS: Acetaminophen 325 MG TABLET 650 MG PO (08:56)
[2024-04-05] MEDS: TiZANidine HCL 4 MG TABLET 2 MG PO ×3 (08:57→21:28)
[2024-04-05] MEDS: Benztropine Mesylate 0.5 MG TABLET PO (08:57)
[2024-04-05] MEDS: Paliperidone ER 3 MG TAB.ER.24 4.5 MG PO (09:03)
[2024-04-05 09:13] LABS: Magnesium 1.6 mg/dL (1.6-2.6)
[2024-04-05] MEDS: Cholestyramine (With Sugar) 4 GM POWD.PACK PO (11:38)
[2024-04-05] MEDS: Ferrous Sulfate 324 MG TABLET.DR PO (11:41)
[2024-04-05] MEDS: Dry Mouth Spray 60 ML SPRAY 1 SPRAY MUCOUS MEM ×2 (14:55→21:38)
--- NOTE | 2024-04-05 16:13 | P.PNPSI_ITS ---
Subjective Subjective Date of Service: 04/05/24 Reason For Visit: Bipolar disorder II, PTSD Subjective Notes: Conditional Voluntary Healthcare Proxy: No Guardianship: No Medical Problems Affecting Mental Status: No Interim History: Visable on the unit. Attended all OT groups today per the team. No current questions or concerns for tw Denies SI/HI/AH/VH No sx of acute miquel or psychosis present. Medication Compliance: Yes Side effects from medications: No Attending Groups: Yes Review of Systems Acute medical concerns: No Review of Systems Review of Systems Yes all other systems are reviewed and are negative Mental Status Exam Mental Status Exam Patient Appearance: Appropriate Patient Orientation: Person, Place, Time and Situation Level of Consciousness: Alert Patient Behavior: Appropriate, Talkative, Cooperative, Passive, Anxious, Distractible and Good Eye Contact Mood Description: Anxious Affect Description: Flat Patient Cognition Impaired: No Ability to Follow Directions: Good Speech Pattern: Spontaneous Speech Memory Description: Episodic Impaired Diagnostics Vital Signs (24Hr): Vital Signs - 24 hr 04/04/24 20:00 04/04/24 20:23 04/05/24 08:28 Temperature 98.9 F 97.2 F Pulse Rate 95 99 Blood Pressure 122/79 122/72 165/96 H Pulse Oximetry 97 99 Oxygen Delivery Method Room Air Room Air BMI result Body Mass Index 29.4 Labs 04/04/24 08:06 Labs: Laboratory Results - last 48 hr 04/03/24 04/04/24 04/04/24 19:59 07:52 08:06 Creatinine 0.80 Estim Creat Clear Calc 73.9 Estimated GFR > 60 POC Glucose 180 H 145 H Magnesium 04/04/24 04/05/24 04/05/24 20:15 08:08 08:40 Creatinine Estim Creat Clear Calc Estimated GFR POC Glucose 152 H 131 H Magnesium 1.6 Medications Medications Current Medications Acetaminophen (Acetaminophen 325 Mg Tablet) 325 mg PO Q6H PRN PRN Reason: Headache/Pain Mild Scale (1-3) Acetaminophen (Acetaminophen 325 Mg Tablet) 650 mg PO Q6H PRN PRN Reason: Pain, Moderate(Pain Scale 4-6) Last Admin: 04/05/24 08:56 Dose: 650 mg Al Hydroxide/Mg Hydroxide (Magnesium Hydrox/Alum Hydrox 30 Ml Oral.Susp) 30 ml PO Q6H PRN PRN Reason: Heartburn/Nausea Apixaban (Apixaban 5 Mg Tablet) 5 mg PO BID [facility] Last Admin: 04/05/24 08:55 Dose: 5 mg Atorvastatin Calcium (Atorvastatin Calcium 40 Mg Tablet) 40 mg PO DAILY [facility] Last Admin: 04/05/24 08:55 Dose: 40 mg Benztropine Mesylate (Benztropine Mesylate 0.5 Mg Tablet) 0.5 mg PO DAILY [facility] Last Admin: 04/05/24 08:57 Dose: 0.5 mg Carbidopa/Levodopa (Carbidopa/Levodopa 25/100 Tablet) 0.5 tab PO TID [facility] Last Admin: 04/05/24 14:56 Dose: 0.5 tab Cholestyramine Resin (Cholestyramine (With Sugar) 4 Gm Powd.Pack) 4 gm PO DAILY [facility] Last Admin: 04/05/24 11:38 Dose: 4 gm Clonidine HCl (Clonidine Hcl 0.1 Mg Tablet) 0.1 mg PO BID [facility]; Protocol Last Admin: 04/05/24 08:53 Dose: 0.1 mg Ferrous Sulfate (Ferrous Sulfate 324 Mg Tablet.Dr) 324 mg PO DAILY [facility] Last Admin: 04/05/24 11:41 Dose: 324 mg Furosemide (Furosemide 20 Mg Tablet) 20 mg PO DAILY [facility]; Protocol Last Admin: 04/05/24 08:56 Dose: 20 mg Guaifenesin/Dextromethorphan (Guaifenesin Dm 100/10/5 Ml 5 Ml Syrup) 5 ml PO Q4H PRN PRN Reason: Cough Last Admin: 03/31/24 21:05 Dose: 5 ml Hydroxyzine HCl (Hydroxyzine Hcl 25 Mg Tablet) 25 mg PO Q6H PRN PRN Reason: Anxiety, mild Hydroxyzine HCl (Hydroxyzine Hcl 50 Mg Tablet) 50 mg PO Q6H PRN PRN Reason: anxiety, moderate Lidocaine (Lidocaine 4 % Patch Adh..Patch) 1 patch TRANSDERMA DAILY [facility]; Protocol Last Admin: 04/05/24 08:50 Dose: 1 patch Loperamide HCl (Loperamide Hcl 2 Mg Capsule) 2 mg PO Q6H PRN PRN Reason: Diarrhea Last Admin: 04/02/24 05:57 Dose: 2 mg Magnesium Hydroxide (Milk Of Magnesia 30 Ml Oral.Susp) 30 ml PO DAILY PRN PRN Reason: Constipation Magnesium Oxide (Magnesium Oxide 400 Mg Tablet) 400 mg PO DAILY [facility] Last Admin: 04/05/24 08:54 Dose: 400 mg Metformin HCl (Metformin Hcl 500 Mg Tablet) 500 mg PO BIDWM [facility] Last Admin: 04/05/24 08:56 Dose: 500 mg Multivitamins/Vitamin C (Multivitamin Tablet) 1 tab PO DAILY [facility] Last Admin: 04/05/24 08:56 Dose: 1 tab Nystatin (Nystatin Cream 15 Gm Tube) 1 appl TOPICAL BID [facility]; Protocol Last Admin: 04/05/24 09:08 Dose: Not Given Olanzapine (Olanzapine 5 Mg Tablet) 5 mg PO DAILY PRN PRN Reason: severe anxiety Omeprazole (Omeprazole 20 Mg Capsule.Dr) 20 mg PO DAILY@0630 [facility] Last Admin: 04/05/24 08:55 Dose: 20 mg Paliperidone (Paliperidone Er 3 Mg Tab.Er.24) 4.5 mg PO DAILY [facility] Last Admin: 04/05/24 09:03 Dose: 4.5 mg Quetiapine Fumarate (Quetiapine Fumarate 50 Mg Tablet) 50 mg PO DAILY [facility] Last Admin: 04/05/24 08:55 Dose: 50 mg Quetiapine Fumarate (Quetiapine Fumarate 25 Mg Tablet) 25 mg PO TID PRN PRN Reason: anxiety Last Admin: 03/31/24 14:14 Dose: 25 mg Quetiapine Fumarate 200 mg/ (Quetiapine Fumarate 50 mg) 250 mg PO BEDTIME [facility] Last Admin: 04/04/24 20:20 Dose: 250 mg Saliva Substitute (Dry Mouth [place] 60 Ml [place]) 1 spray MUCOUS MEM Q2H PRN PRN Reason: Dry Mouth Last Admin: 04/05/24 14:55 Dose: 1 spray Tizanidine HCl (Tizanidine Hcl 4 Mg Tablet) 2 mg PO TID [facility] Last Admin: 04/05/24 14:55 Dose: 2 mg Trazodone HCl (Trazodone Hcl 50 Mg Tablet) 50 mg PO BEDTIME MRX1 PRN PRN Reason: Insomnia Last Admin: 04/02/24 20:20 Dose: 50 mg Allergies Allergies Allergy/AdvReac Type Severity Reaction Status Date / Time amoxicillin [AMOXICILLIN] Allergy Severe Anaphylaxis Verified 02/05/24 10:21 aspirin [ASA] Allergy Severe RASH/FEVER/ Verified 02/05/24 10:21 VOMITING latex [LATEX] Allergy Severe Rash Verified 02/05/24 10:21 Penicillins [PENICILLINS] Allergy Severe Anaphylaxis Verified 02/05/24 10:21 sulfamethoxazole Allergy Severe Hives Verified 02/05/24 10:21 [From BACTRIM] trimethoprim [From BACTRIM] Allergy Severe Hives Verified 02/05/24 10:21 meloxicam AdvReac Intermediate GI side Verified 02/05/24 10:21 effects lactose AdvReac Unknown Verified 03/29/24 13:34 Assessment & Plan Assessment & Plan (1) Schizoaffective disorder: Status: Acute Code(s): F25.9 - Schizoaffective disorder, unspecified (2) PTSD (post-traumatic stress disorder): Status: Acute Code(s): F43.10 - Post-traumatic stress disorder, unspecified Plan Pt is a 53-year-old female with a PMH significant for?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 Medical consult for admission H&P. Mood disorder Plan as per Psychiatry Parkinsonism Continue carbidopa levodopa, benztropine Hx of PE/IVC thrombus Continue Eliquis [id number] type 2 diabetes Continue metformin Encouraged diabetic diet and diabetic snacking GERD PPI HLD Continue statin Thank you for allowing us to participate in the care of this patient. Signing off at this time. Please re-consult if any acute complaints or issues arise. 03/29/24: Tolerating increase of Invega, continue dosages Re-review of diagnostics-repeat urine culture from [facility] 03/30/2024: Continue current regimen and plans 03/31/2024: Continue current regimen and plans. Hospitalist consult placed for rash over her buttocks 04/01/24: Magnesium 400 mg daily. Repeat Mg on 04/05/2404/02 continue tx. improvement in Mg 1.5, EKG with no changes due to low mag. 04/03 continue tx. 04/04 Continue current plan. Mg on 04/08 Discharge planning for next week. Reason for continued inpatient stay Substantial Risk for: rapid decompensation Time Spent With Patient Time: Total time managing care of this patient today ____ minutes.
[2024-04-05 20:00] VITALS: BP 135/100; PULSE 100; RESP 18; TEMP 36.4; O2SAT 96
[2024-04-05] MEDS: QUEtiapine Fumarate 25 MG TABLET PO (21:26)
[2024-04-05] MEDS: Nystatin Cream 15 GM TUBE 1 APPL TOPICAL (21:28)
[2024-04-05] MEDS: traZODone HCL 50 MG TABLET PO (21:33)
[2024-04-05 21:49] LABS: Glucose, Whole Blood 153 mg/dL (60-115)
--- NOTE | 2024-04-06 05:59 | HO.PSYCHPN ---
Subjective Subjective Date of Service: 04/06/24 Reason For Visit: Bipolar disorder II, PTSD Subjective Notes: Conditional Voluntary Healthcare Proxy: No Guardianship: No Medical Problems Affecting Mental Status: No Interim History: Pt seen, reviewed with the team. Pt discussed IBS sx and her concerns. We reviewed her IBS plan- imodium and cholestyramine. She reports she believes she is followed by [facility]. We will call on 04/08 to verify her plan and to schedule a follow up appt. Pt reports she is making progress with her independence and this is helping her mood to improve. Sleep and appetite are intact, however, the bed is not comfortable. She is talking of a return to her rest home and looking forward to seeing her team. Medication Compliance: Yes Side effects from medications: No Attending Groups: Yes Review of Systems Acute medical concerns: No Medical Review of Systems: unchanged Review of Systems Review of Systems GI sx Mental Status Exam Mental Status Exam Patient Appearance: Appropriate Patient Orientation: Person, Place, Time and Situation Level of Consciousness: Alert Patient Behavior: Appropriate, Talkative, Cooperative, Passive, Anxious, Distractible and Good Eye Contact Mood Description: Anxious Affect Description: Flat Patient Cognition Impaired: No Ability to Follow Directions: Good Speech Pattern: Spontaneous Speech Memory Description: Episodic Impaired Diagnostics Vital Signs (24Hr): Vital Signs - 24 hr 04/05/24 08:28 04/05/24 20:00 Temperature 97.2 F 97.5 F Pulse Rate 99 100 Respiratory Rate 18 Blood Pressure 165/96 H 135/100 H Pulse Oximetry 99 96 Oxygen Delivery Method Room Air Room Air BMI result Body Mass Index 29.4 Labs 04/04/24 08:06 Labs: Laboratory Results - last 48 hr 04/04/24 04/04/24 04/04/24 07:52 08:06 20:15 Creatinine 0.80 Estim Creat Clear Calc 73.9 Estimated GFR > 60 POC Glucose 145 H 152 H Magnesium 04/05/24 04/05/24 04/05/24 08:08 08:40 21:44 Creatinine Estim Creat Clear Calc Estimated GFR POC Glucose 131 H 153 H Magnesium 1.6 Medications Medications Current Medications Acetaminophen (Acetaminophen 325 Mg Tablet) 325 mg PO Q6H PRN PRN Reason: Headache/Pain Mild Scale (1-3) Acetaminophen (Acetaminophen 325 Mg Tablet) 650 mg PO Q6H PRN PRN Reason: Pain, Moderate(Pain Scale 4-6) Last Admin: 04/05/24 08:56 Dose: 650 mg Al Hydroxide/Mg Hydroxide (Magnesium Hydrox/Alum Hydrox 30 Ml Oral.Susp) 30 ml PO Q6H PRN PRN Reason: Heartburn/Nausea Apixaban (Apixaban 5 Mg Tablet) 5 mg PO BID [facility] Last Admin: 04/05/24 21:24 Dose: 5 mg Atorvastatin Calcium (Atorvastatin Calcium 40 Mg Tablet) 40 mg PO DAILY [facility] Last Admin: 04/05/24 08:55 Dose: 40 mg Benztropine Mesylate (Benztropine Mesylate 0.5 Mg Tablet) 0.5 mg PO DAILY [facility] Last Admin: 04/05/24 08:57 Dose: 0.5 mg Carbidopa/Levodopa (Carbidopa/Levodopa 25/100 Tablet) 0.5 tab PO TID [facility] Last Admin: 04/05/24 21:24 Dose: 0.5 tab Cholestyramine Resin (Cholestyramine (With Sugar) 4 Gm Powd.Pack) 4 gm PO DAILY [facility] Last Admin: 04/05/24 11:38 Dose: 4 gm Clonidine HCl (Clonidine Hcl 0.1 Mg Tablet) 0.1 mg PO BID [facility]; Protocol Last Admin: 04/05/24 21:25 Dose: 0.1 mg Ferrous Sulfate (Ferrous Sulfate 324 Mg Tablet.Dr) 324 mg PO DAILY [facility] Last Admin: 04/05/24 11:41 Dose: 324 mg Furosemide (Furosemide 20 Mg Tablet) 20 mg PO DAILY [facility]; Protocol Last Admin: 04/05/24 08:56 Dose: 20 mg Guaifenesin/Dextromethorphan (Guaifenesin Dm 100/10/5 Ml 5 Ml Syrup) 5 ml PO Q4H PRN PRN Reason: Cough Last Admin: 03/31/24 21:05 Dose: 5 ml Hydroxyzine HCl (Hydroxyzine Hcl 25 Mg Tablet) 25 mg PO Q6H PRN PRN Reason: Anxiety, mild Hydroxyzine HCl (Hydroxyzine Hcl 50 Mg Tablet) 50 mg PO Q6H PRN PRN Reason: anxiety, moderate Lidocaine (Lidocaine 4 % Patch Adh..Patch) 1 patch TRANSDERMA DAILY [facility]; Protocol Last Admin: 04/05/24 08:50 Dose: 1 patch Loperamide HCl (Loperamide Hcl 2 Mg Capsule) 2 mg PO Q6H PRN PRN Reason: Diarrhea Last Admin: 04/02/24 05:57 Dose: 2 mg Magnesium Hydroxide (Milk Of Magnesia 30 Ml Oral.Susp) 30 ml PO DAILY PRN PRN Reason: Constipation Magnesium Oxide (Magnesium Oxide 400 Mg Tablet) 400 mg PO DAILY [facility] Last Admin: 04/05/24 08:54 Dose: 400 mg Metformin HCl (Metformin Hcl 500 Mg Tablet) 500 mg PO BIDWM [facility] Last Admin: 04/05/24 17:19 Dose: 500 mg Multivitamins/Vitamin C (Multivitamin Tablet) 1 tab PO DAILY [facility] Last Admin: 04/05/24 08:56 Dose: 1 tab Nystatin (Nystatin Cream 15 Gm Tube) 1 appl TOPICAL BID [facility]; Protocol Last Admin: 04/05/24 21:28 Dose: 1 appl Olanzapine (Olanzapine 5 Mg Tablet) 5 mg PO DAILY PRN PRN Reason: severe anxiety Omeprazole (Omeprazole 20 Mg Capsule.Dr) 20 mg PO DAILY@0630 [facility] Last Admin: 04/05/24 08:55 Dose: 20 mg Paliperidone (Paliperidone Er 3 Mg Tab.Er.24) 4.5 mg PO DAILY [facility] Last Admin: 04/05/24 09:03 Dose: 4.5 mg Quetiapine Fumarate (Quetiapine Fumarate 50 Mg Tablet) 50 mg PO DAILY [facility] Last Admin: 04/05/24 08:55 Dose: 50 mg Quetiapine Fumarate (Quetiapine Fumarate 25 Mg Tablet) 25 mg PO TID PRN PRN Reason: anxiety Last Admin: 04/05/24 21:26 Dose: 25 mg Quetiapine Fumarate 200 mg/ (Quetiapine Fumarate 50 mg) 250 mg PO BEDTIME [facility] Last Admin: 04/05/24 21:28 Dose: 250 mg Saliva Substitute (Dry Mouth [place] 60 Ml [place]) 1 spray MUCOUS MEM Q2H PRN PRN Reason: Dry Mouth Last Admin: 04/05/24 21:38 Dose: 1 spray Tizanidine HCl (Tizanidine Hcl 4 Mg Tablet) 2 mg PO TID [facility] Last Admin: 04/05/24 21:28 Dose: 2 mg Trazodone HCl (Trazodone Hcl 50 Mg Tablet) 50 mg PO BEDTIME MRX1 PRN PRN Reason: Insomnia Last Admin: 04/05/24 21:33 Dose: 50 mg Allergies Allergies Allergy/AdvReac Type Severity Reaction Status Date / Time amoxicillin [AMOXICILLIN] Allergy Severe Anaphylaxis Verified 02/05/24 10:21 aspirin [ASA] Allergy Severe RASH/FEVER/ Verified 02/05/24 10:21 VOMITING latex [LATEX] Allergy Severe Rash Verified 02/05/24 10:21 Penicillins [PENICILLINS] Allergy Severe Anaphylaxis Verified 02/05/24 10:21 sulfamethoxazole Allergy Severe Hives Verified 02/05/24 10:21 [From BACTRIM] trimethoprim [From BACTRIM] Allergy Severe Hives Verified 02/05/24 10:21 meloxicam AdvReac Intermediate GI side Verified 02/05/24 10:21 effects lactose AdvReac Unknown Verified 03/29/24 13:34 Assessment & Plan Assessment & Plan (1) Schizoaffective disorder: Status: Acute Code(s): F25.9 - Schizoaffective disorder, unspecified (2) PTSD (post-traumatic stress disorder): Status: Acute Code(s): F43.10 - Post-traumatic stress disorder, unspecified Plan Pt is a 53-year-old female with a PMH significant for?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 Medical consult for admission H&P. Mood disorder Plan as per Psychiatry Parkinsonism Continue carbidopa levodopa, benztropine Hx of PE/IVC thrombus Continue Eliquis [id number] type 2 diabetes Continue metformin Encouraged diabetic diet and diabetic snacking GERD PPI HLD Continue statin Thank you for allowing us to participate in the care of this patient. Signing off at this time. Please re-consult if any acute complaints or issues arise. 03/29/24: Tolerating increase of Invega, continue dosages Re-review of diagnostics-repeat urine culture from [facility] 03/30/2024: Continue current regimen and plans 03/31/2024: Continue current regimen and plans. Hospitalist consult placed for rash over her buttocks 04/01/24: Magnesium 400 mg daily. Repeat Mg on 04/05/2404/02 continue tx. improvement in Mg 1.5, EKG with no changes due to low mag. 04/03 continue tx. 04/04 Continue current plan. Mg on 04/08 Discharge planning for next week. 04/07/24: Continue current regime/plan. Reason for continued inpatient stay Substantial Risk for: rapid decompensation Time Spent With Patient Time: Total time managing care of this patient today ____ minutes.
[2024-04-06 08:00] VITALS: BP 134/79; PULSE 96; TEMP 36.6; O2SAT 96
[2024-04-06 08:41] LABS: Glucose, Whole Blood 173 mg/dL (60-115)
[2024-04-06] MEDS: Lidocaine 4 % Patch ADH..PATCH 1 PATCH TRANSDERMA (08:56)
[2024-04-06] MEDS: Magnesium Oxide 400 MG TABLET PO (08:57)
[2024-04-06] MEDS: Apixaban 5 MG TABLET PO ×2 (08:58→21:04)
[2024-04-06] MEDS: Multivitamin TABLET 1 TAB PO (08:58)
[2024-04-06] MEDS: TiZANidine HCL 4 MG TABLET 2 MG PO ×3 (08:58→21:07)
[2024-04-06] MEDS: Carbidopa/Levodopa 25/100 TABLET 0.5 TAB PO ×3 (09:01→21:04)
[2024-04-06] MEDS: Benztropine Mesylate 0.5 MG TABLET PO (09:01)
[2024-04-06] MEDS: QUEtiapine Fumarate 50 MG TABLET PO (09:01)
[2024-04-06] MEDS: Ferrous Sulfate 324 MG TABLET.DR PO (09:01)
[2024-04-06 09:03] VITALS: BP 134/79
[2024-04-06] MEDS: Furosemide 20 MG TABLET PO (09:03)
[2024-04-06] MEDS: metFORMIN HCl 500 MG TABLET PO ×2 (09:03→17:17)
[2024-04-06 09:04] VITALS: BP 134/79
[2024-04-06] MEDS: Omeprazole 20 MG CAPSULE.DR PO (09:04)
[2024-04-06] MEDS: cloNIDine HCL 0.1 MG TABLET PO ×2 (09:04→21:05)
[2024-04-06] MEDS: Cholestyramine (With Sugar) 4 GM POWD.PACK PO (09:05)
[2024-04-06] MEDS: Atorvastatin Calcium 40 MG TABLET PO (09:06)
[2024-04-06] MEDS: Paliperidone ER 3 MG TAB.ER.24 4.5 MG PO (09:12)
[2024-04-06] MEDS: Loperamide HCl 2 MG CAPSULE PO (14:58)
[2024-04-06] MEDS: Dry Mouth Spray 60 ML SPRAY 1 SPRAY MUCOUS MEM ×2 (17:17→21:12)
[2024-04-06 19:45] VITALS: BP 118/74; PULSE 98; RESP 18; TEMP 36.5; O2SAT 96
[2024-04-06] MEDS: traZODone HCL 50 MG TABLET PO (21:09)
[2024-04-06 21:41] LABS: Glucose, Whole Blood 140 mg/dL (60-115)
[2024-04-07 07:47] VITALS: BP 154/94; PULSE 109; TEMP 36.4; O2SAT 95
[2024-04-07] MEDS: metFORMIN HCl 500 MG TABLET PO ×2 (08:07→17:16)
[2024-04-07 08:10] LABS: Glucose, Whole Blood 123 mg/dL (60-115)
[2024-04-07] MEDS: Lidocaine 4 % Patch ADH..PATCH 1 PATCH TRANSDERMA (08:39)
[2024-04-07] MEDS: Atorvastatin Calcium 40 MG TABLET PO (08:40)
[2024-04-07] MEDS: Furosemide 20 MG TABLET PO (08:40)
[2024-04-07] MEDS: Magnesium Oxide 400 MG TABLET PO (08:40)
[2024-04-07] MEDS: Ferrous Sulfate 324 MG TABLET.DR PO (08:41)
[2024-04-07] MEDS: Multivitamin TABLET 1 TAB PO (08:41)
[2024-04-07] MEDS: Benztropine Mesylate 0.5 MG TABLET PO (08:41)
[2024-04-07] MEDS: Cholestyramine (With Sugar) 4 GM POWD.PACK PO (08:42)
[2024-04-07] MEDS: Apixaban 5 MG TABLET PO ×2 (08:42→21:00)
[2024-04-07] MEDS: cloNIDine HCL 0.1 MG TABLET PO ×2 (08:42→21:00)
[2024-04-07] MEDS: TiZANidine HCL 4 MG TABLET 2 MG PO ×3 (08:43→20:57)
--- NOTE | 2024-04-07 08:43 | P.PNPSI_ITS ---
Subjective Subjective Date of Service: 04/07/24 Reason For Visit: Bipolar disorder II, PTSD Subjective Notes: Conditional Voluntary Healthcare Proxy: No Guardianship: No Medical Problems Affecting Mental Status: Yes (IBS) Interim History: Pt seen, reviewed with team. Pt in milieu with peers, watching a movie, appears somewhat sedate at times. States she is feeling well. Slept eight hours and looking forward to discharge to return to her rest home. Medication Compliance: Yes Side effects from medications: No Attending Groups: Yes Review of Systems Acute medical concerns: No Medical Review of Systems: unchanged Review of Systems Review of Systems Denies GI sx today Mental Status Exam Mental Status Exam Patient Appearance: Appropriate Patient Orientation: Person, Place, Time and Situation Level of Consciousness: Alert Patient Behavior: Appropriate Mood Description: Constricted Affect Description: Constricted Patient Cognition Impaired: No Ability to Follow Directions: Good Speech Pattern: Spontaneous Speech Memory Description: Episodic Impaired Hallucinations: None Delusions: Not Present Thought Process: Goal Oriented Thought Content: positive for Goal Oriented and positive for Suicidal Ideation (denies) Depressive Symptoms: Thoughts of /Suicide (denies) Judgement: Fair Diagnostics Vital Signs (24Hr): Vital Signs - 24 hr 04/06/24 09:03 04/06/24 09:04 04/06/24 19:45 Temperature 97.7 F Pulse Rate 98 Respiratory Rate 18 Blood Pressure 134/79 134/79 118/74 Pulse Oximetry 96 Oxygen Delivery Method Room Air 04/07/24 07:47 Temperature 97.6 F Pulse Rate 109 H Respiratory Rate Blood Pressure 154/94 H Pulse Oximetry 95 Oxygen Delivery Method Room Air BMI result Body Mass Index 29.4 Labs 04/04/24 08:06 Labs: Laboratory Results - last 48 hr 04/05/24 04/05/24 04/06/24 08:40 21:44 08:35 POC Glucose 153 H 173 H Magnesium 1.6 04/06/24 04/07/24 21:37 08:05 POC Glucose 140 H 123 H Magnesium Medications Medications Current Medications Acetaminophen (Acetaminophen 325 Mg Tablet) 325 mg PO Q6H PRN PRN Reason: Headache/Pain Mild Scale (1-3) Acetaminophen (Acetaminophen 325 Mg Tablet) 650 mg PO Q6H PRN PRN Reason: Pain, Moderate(Pain Scale 4-6) Last Admin: 04/05/24 08:56 Dose: 650 mg Al Hydroxide/Mg Hydroxide (Magnesium Hydrox/Alum Hydrox 30 Ml Oral.Susp) 30 ml PO Q6H PRN PRN Reason: Heartburn/Nausea Apixaban (Apixaban 5 Mg Tablet) 5 mg PO BID [facility] Last Admin: 04/06/24 21:04 Dose: 5 mg Atorvastatin Calcium (Atorvastatin Calcium 40 Mg Tablet) 40 mg PO DAILY [facility] Last Admin: 04/06/24 09:06 Dose: 40 mg Benztropine Mesylate (Benztropine Mesylate 0.5 Mg Tablet) 0.5 mg PO DAILY [facility] Last Admin: 04/06/24 09:01 Dose: 0.5 mg Carbidopa/Levodopa (Carbidopa/Levodopa 25/100 Tablet) 0.5 tab PO TID [facility] Last Admin: 04/06/24 21:04 Dose: 0.5 tab Cholestyramine Resin (Cholestyramine (With Sugar) 4 Gm Powd.Pack) 4 gm PO DAILY [facility] Last Admin: 04/06/24 09:05 Dose: 4 gm Clonidine HCl (Clonidine Hcl 0.1 Mg Tablet) 0.1 mg PO BID [facility]; Protocol Last Admin: 04/06/24 21:05 Dose: 0.1 mg Ferrous Sulfate (Ferrous Sulfate 324 Mg Tablet.Dr) 324 mg PO DAILY [facility] Last Admin: 04/06/24 09:01 Dose: 324 mg Furosemide (Furosemide 20 Mg Tablet) 20 mg PO DAILY [facility]; Protocol Last Admin: 04/06/24 09:03 Dose: 20 mg Guaifenesin/Dextromethorphan (Guaifenesin Dm 100/10/5 Ml 5 Ml Syrup) 5 ml PO Q4H PRN PRN Reason: Cough Last Admin: 03/31/24 21:05 Dose: 5 ml Hydroxyzine HCl (Hydroxyzine Hcl 25 Mg Tablet) 25 mg PO Q6H PRN PRN Reason: Anxiety, mild Hydroxyzine HCl (Hydroxyzine Hcl 50 Mg Tablet) 50 mg PO Q6H PRN PRN Reason: anxiety, moderate Lidocaine (Lidocaine 4 % Patch Adh..Patch) 1 patch TRANSDERMA DAILY [facility]; Protocol Last Admin: 04/06/24 08:56 Dose: 1 patch Loperamide HCl (Loperamide Hcl 2 Mg Capsule) 4 mg PO Q4H PRN PRN Reason: Diarrhea Magnesium Hydroxide (Milk Of Magnesia 30 Ml Oral.Susp) 30 ml PO DAILY PRN PRN Reason: Constipation Magnesium Oxide (Magnesium Oxide 400 Mg Tablet) 400 mg PO DAILY [facility] Last Admin: 04/06/24 08:57 Dose: 400 mg Metformin HCl (Metformin Hcl 500 Mg Tablet) 500 mg PO BIDWM [facility] Last Admin: 04/07/24 08:07 Dose: 500 mg Multivitamins/Vitamin C (Multivitamin Tablet) 1 tab PO DAILY [facility] Last Admin: 04/06/24 08:58 Dose: 1 tab Nystatin (Nystatin Cream 15 Gm Tube) 1 appl TOPICAL BID [facility]; Protocol Last Admin: 04/06/24 21:14 Dose: Not Given Olanzapine (Olanzapine 5 Mg Tablet) 5 mg PO DAILY PRN PRN Reason: severe anxiety Omeprazole (Omeprazole 20 Mg Capsule.Dr) 20 mg PO DAILY@0630 [facility] Last Admin: 04/07/24 08:07 Dose: Not Given Paliperidone (Paliperidone Er 3 Mg Tab.Er.24) 4.5 mg PO DAILY [facility] Last Admin: 04/06/24 09:12 Dose: 4.5 mg Quetiapine Fumarate (Quetiapine Fumarate 50 Mg Tablet) 50 mg PO DAILY [facility] Last Admin: 04/06/24 09:01 Dose: 50 mg Quetiapine Fumarate (Quetiapine Fumarate 25 Mg Tablet) 25 mg PO TID PRN PRN Reason: anxiety Last Admin: 04/05/24 21:26 Dose: 25 mg Quetiapine Fumarate 200 mg/ (Quetiapine Fumarate 50 mg) 250 mg PO BEDTIME [facility] Last Admin: 04/06/24 21:05 Dose: 250 mg Saliva Substitute (Dry Mouth [place] 60 Ml [place]) 1 spray MUCOUS MEM Q2H PRN PRN Reason: Dry Mouth Last Admin: 04/06/24 21:12 Dose: 1 spray Tizanidine HCl (Tizanidine Hcl 4 Mg Tablet) 2 mg PO TID [facility] Last Admin: 04/06/24 21:07 Dose: 2 mg Trazodone HCl (Trazodone Hcl 50 Mg Tablet) 50 mg PO BEDTIME MRX1 PRN PRN Reason: Insomnia Last Admin: 04/06/24 21:09 Dose: 50 mg Allergies Allergies Allergy/AdvReac Type Severity Reaction Status Date / Time amoxicillin [AMOXICILLIN] Allergy Severe Anaphylaxis Verified 02/05/24 10:21 aspirin [ASA] Allergy Severe RASH/FEVER/ Verified 02/05/24 10:21 VOMITING latex [LATEX] Allergy Severe Rash Verified 02/05/24 10:21 Penicillins [PENICILLINS] Allergy Severe Anaphylaxis Verified 02/05/24 10:21 sulfamethoxazole Allergy Severe Hives Verified 02/05/24 10:21 [From BACTRIM] trimethoprim [From BACTRIM] Allergy Severe Hives Verified 02/05/24 10:21 meloxicam AdvReac Intermediate GI side Verified 02/05/24 10:21 effects lactose AdvReac Unknown Verified 03/29/24 13:34 Assessment & Plan Assessment & Plan (1) Schizoaffective disorder: Status: Acute Code(s): F25.9 - Schizoaffective disorder, unspecified (2) PTSD (post-traumatic stress disorder): Status: Acute Code(s): F43.10 - Post-traumatic stress disorder, unspecified Plan Pt is a 53-year-old female with a PMH significant for?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 Medical consult for admission H&P. Mood disorder Plan as per Psychiatry Parkinsonism Continue carbidopa levodopa, benztropine Hx of PE/IVC thrombus Continue Eliquis Iqu-kznxzkq-mcqmpuuzm type 2 diabetes Continue metformin Encouraged diabetic diet and diabetic snacking GERD PPI HLD Continue statin Thank you for allowing us to participate in the care of this patient. Signing off at this time. Please re-consult if any acute complaints or issues arise. 03/29/24: Tolerating increase of Invega, continue dosages Re-review of diagnostics-repeat urine culture from [facility] [place] 03/30/2024: Continue current regimen and plans 03/31/2024: Continue current regimen and plans. Hospitalist consult placed for rash over her buttocks 04/01/24: Magnesium 400 mg daily. Repeat Mg on 04/05/2404/02 continue tx. improvement in Mg 1.5, EKG with no changes due to low mag. 04/03 continue tx. 04/04 Continue current plan. Mg on 04/08 Discharge planning for next week. 04/07/24: Labs in the a.m. Continue current regime Discharge planning. Reason for continued inpatient stay Substantial Risk for: rapid decompensation Time Spent With Patient Time: Total time managing care of this patient today ____ minutes.
[2024-04-07] MEDS: Carbidopa/Levodopa 25/100 TABLET 0.5 TAB PO ×3 (08:44→20:58)
[2024-04-07] MEDS: QUEtiapine Fumarate 50 MG TABLET PO (08:45)
[2024-04-07] MEDS: Nystatin Cream 15 GM TUBE 1 APPL TOPICAL (08:46)
[2024-04-07] MEDS: Paliperidone ER 3 MG TAB.ER.24 4.5 MG PO (08:46)
[2024-04-07] MEDS: Dry Mouth Spray 60 ML SPRAY 1 SPRAY MUCOUS MEM (13:34)
[2024-04-07 20:00] VITALS: BP 122/75; PULSE 96; TEMP 36.8; O2SAT 97
[2024-04-07 20:45] LABS: Glucose, Whole Blood 153 mg/dL (60-115)
[2024-04-07] MEDS: Acetaminophen 325 MG TABLET PO (20:58)
[2024-04-07 21:00] VITALS: BP 122/75
[2024-04-08] MEDS: Acetaminophen 325 MG TABLET 650 MG PO (04:07)
[2024-04-08] MEDS: Dry Mouth Spray 60 ML SPRAY 1 SPRAY MUCOUS MEM (04:07)
[2024-04-08 08:00] VITALS: BP 129/78; PULSE 93; TEMP 36.4; O2SAT 97
[2024-04-08 08:10] LABS: Glucose, Whole Blood 125 mg/dL (60-115)
[2024-04-08] MEDS: Furosemide 20 MG TABLET PO (08:38)
[2024-04-08] MEDS: cloNIDine HCL 0.1 MG TABLET PO ×2 (08:38→20:46)
[2024-04-08] MEDS: Cholestyramine (With Sugar) 4 GM POWD.PACK PO (08:38)
[2024-04-08] MEDS: Apixaban 5 MG TABLET PO ×2 (08:39→20:45)
[2024-04-08] MEDS: QUEtiapine Fumarate 50 MG TABLET PO (08:39)
[2024-04-08] MEDS: Atorvastatin Calcium 40 MG TABLET PO (08:39)
[2024-04-08] MEDS: Magnesium Oxide 400 MG TABLET PO (08:39)
[2024-04-08] MEDS: Ferrous Sulfate 324 MG TABLET.DR PO (08:39)
[2024-04-08] MEDS: Multivitamin TABLET 1 TAB PO (08:39)
[2024-04-08] MEDS: Carbidopa/Levodopa 25/100 TABLET 0.5 TAB PO ×3 (08:40→20:46)
[2024-04-08] MEDS: Lidocaine 4 % Patch ADH..PATCH 1 PATCH TRANSDERMA (08:45)
[2024-04-08] MEDS: Paliperidone ER 3 MG TAB.ER.24 4.5 MG PO (09:09)
[2024-04-08] MEDS: Benztropine Mesylate 0.5 MG TABLET PO (09:15)
[2024-04-08] MEDS: metFORMIN HCl 500 MG TABLET PO ×2 (09:15→17:18)
[2024-04-08] MEDS: TiZANidine HCL 4 MG TABLET 2 MG PO ×3 (09:17→20:46)
[2024-04-08 09:25] LABS: MANUAL DIFF FLAG NO
[2024-04-08 09:26] LABS: Basophils Absolute Auto 0.1 X10*3/uL (0.0-0.2); Basophils Percent Auto 0.5 % (0-2); Eosinophils Absolute Auto 0.3 X10*3/uL (0.0-0.4); Eosinophils Percent Auto 2.3 % (0-4); Hematocrit 39.5 % (37.0-47.0); Hemoglobin 12.5 g/dl (12.0-16.0); Imm Gran Abs Auto 0.03 X10*3/uL (0.00-0.03); Imm Gran Pct Auto 0.3 % (0.0-0.4); Lymphocytes Absolute Auto 2.6 X10*3/uL (1.2-4.9); Lymphocytes Percent Auto 23.6 % (20-40); Mean Corpuscular HGB Conc 31.6 g/dl (31.0-35.0); Mean Corpuscular Hemoglobin 24.6 pg (27.0-33.0); Mean Corpuscular Volume 77.8 fL (80.0-98.0); Mean Platelet Volume 9.4 fL (9.4-12.3); Monocytes Absolute Auto 0.5 X10*3/uL (0.1-1.2); Monocytes Percent Auto 4.5 % (2-11); Neutrophils Absolute Auto 7.6 x10*3/uL (2.0-8.3); Neutrophils Percent Auto 68.8 % (45-73); Platelet Count 413 X10*3/uL (160-400); Red Blood Count 5.08 X10*6/uL (4.20-5.50); Red Cell Distribution Width 15.3 % (11.0-16.0)
[2024-04-08 09:42] LABS: Estimated Average Glucose 146 mg/dL; Hemoglobin A1C 157.2753 umol/L; Hemoglobin A1c % 6.7 % (<6.0); Total Hemoglobin (HGBA1C) 3178.0498 umol/L
[2024-04-08 09:50] LABS: Alanine Aminotransferase 10 U/L (0-31); Alkaline Phosphatase 77 U/L (39-117); Anion Gap 14 (12-20); Aspartate Amino Transferase 18 U/L (5-31); Bilirubin Total 0.4 mg/dL (0.0-1.0); Blood Urea Nitrogen 25 mg/dL (9-16); Calcium 9.8 mg/dL (8.4-10.2); Carbon Dioxide 26 mmol/L (22-29); Chloride 105 mmol/L (96-108); Cholesterol 117 mg/dL (<200); Creatinine Clr Calc Pharmacy 72.1; Estimated Glomerular Filt Rate > 60; Glucose Random 114 mg/dL (60-115); HDL Cholesterol 36 mg/dL (>40); LDL Cholesterol Calculated 61 mg/dL (<100); Magnesium 1.7 mg/dL (1.6-2.6); Potassium 4.3 mmol/L (3.3-5.1); Sodium 141 mmol/L (135-145); Total Protein 6.9 g/dL (6.5-8.0); Triglycerides 103 mg/dL (<150)
[2024-04-08 10:01] LABS: Thyroid Stimulating Hormone 0.49 uIU/mL (0.32-4.0)
[2024-04-08 10:15] LABS: Folate 14.5 ng/mL (> or = 4.0); Vitamin B12 716 pg/mL (200-900)
--- NOTE | 2024-04-08 10:44 | P.PNPSI_ITS ---
Subjective Subjective Date of Service: 04/08/24 Reason For Visit: Bipolar disorder II, PTSD Subjective Notes: Conditional Voluntary Healthcare Proxy: No Guardianship: No Medical Problems Affecting Mental Status: No Interim History: Pt reports AH,VH, pink,blue blotches in her vision, 2 per eye. AH are laughing at her stating you will not get better Hospitalist consult requested. Message left for Dr. Chung Keene (pt's eye MD). I just want to get better and be more independent Team is encouraging and educating pt about the importance of moving, participating and being active. Pt wants this to just go away Messages left with her [facility] [place] GI team as well to discuss IBS regime. Medication Compliance: Yes Side effects from medications: No Attending Groups: Intermittent Review of Systems Medical Review of Systems: unchanged Review of Systems Review of Systems Reports no diarrhea Reports blue/pink blotches in vision Mental Status Exam Mental Status Exam Patient Appearance: Appropriate Patient Orientation: Person, Place, Time and Situation Level of Consciousness: Alert Patient Behavior: Appropriate Mood Description: Constricted Affect Description: Constricted Patient Cognition Impaired: No Ability to Follow Directions: Good Speech Pattern: Spontaneous Speech Memory Description: Episodic Impaired Hallucinations: Auditory and Visual Delusions: Not Present Thought Process: Goal Oriented Thought Content: positive for Goal Oriented and positive for Suicidal Ideation (denies) Depressive Symptoms: Thoughts of /Suicide (denies) Judgement: Fair Diagnostics Vital Signs (24Hr): Vital Signs - 24 hr 04/07/24 20:00 04/07/24 21:00 04/08/24 08:00 Temperature 98.2 F 97.6 F Pulse Rate 96 93 Blood Pressure 122/75 122/75 129/78 Pulse Oximetry 97 97 Oxygen Delivery Method Room Air Room Air BMI result Body Mass Index 29.4 Labs 04/08/24 08:28 04/08/24 08:28 Labs: Laboratory Results - last 48 hr 04/06/24 04/07/24 04/07/24 21:37 08:05 20:41 WBC RBC Hgb Hct MCV MCH MCHC RDW Plt Count MPV Immature Gran % (Auto) Neut % (Auto) Lymph % (Auto) [place] % (Auto) Eos % (Auto) Baso % (Auto) Lymph # (Auto) [place] # (Auto) Eos # (Auto) Baso # (Auto) Abs Immat Gran (auto) Absolute Neuts (auto) Absolute Nucleated RBC Nucleated RBC % (auto) Sodium Potassium Chloride Carbon Dioxide Anion Gap BUN Creatinine Estim Creat Clear Calc Estimated GFR POC Glucose 140 H 123 H 153 H Random Glucose Estimat Average Glucose Hemoglobin A1c % Calcium Magnesium Total Bilirubin AST ALT Alkaline Phosphatase Total Protein Albumin Triglycerides Cholesterol LDL Cholesterol, Calc HDL Cholesterol Vitamin B12 Folate TSH 04/08/24 04/08/24 08:06 08:28 WBC 11.0 H RBC 5.08 Hgb 12.5 Hct 39.5 MCV 77.8 L MCH 24.6 L MCHC 31.6 RDW 15.3 Plt Count 413 H MPV 9.4 Immature Gran % (Auto) 0.3 Neut % (Auto) 68.8 Lymph % (Auto) 23.6 [place] % (Auto) 4.5 Eos % (Auto) 2.3 Baso % (Auto) 0.5 Lymph # (Auto) 2.6 [place] # (Auto) 0.5 Eos # (Auto) 0.3 Baso # (Auto) 0.1 Abs Immat Gran (auto) 0.03 Absolute Neuts (auto) 7.6 Absolute Nucleated RBC 0.000 Nucleated RBC % (auto) 0.0 Sodium 141 Potassium 4.3 Chloride 105 Carbon Dioxide 26 Anion Gap 14 BUN 25 H Creatinine 0.82 Estim Creat Clear Calc 72.1 Estimated GFR > 60 POC Glucose 125 H Random Glucose 114 Estimat Average Glucose 146 Hemoglobin A1c % 6.7 H Calcium 9.8 Magnesium 1.7 Total Bilirubin 0.4 AST 18 ALT 10 Alkaline Phosphatase 77 Total Protein 6.9 Albumin 4.0 Triglycerides 103 Cholesterol 117 LDL Cholesterol, Calc 61 HDL Cholesterol 36 L Vitamin B12 716 Folate 14.5 TSH 0.49 Medications Medications Current Medications Acetaminophen (Acetaminophen 325 Mg Tablet) 325 mg PO Q6H PRN PRN Reason: Headache/Pain Mild Scale (1-3) Last Admin: 04/07/24 20:58 Dose: 325 mg Acetaminophen (Acetaminophen 325 Mg Tablet) 650 mg PO Q6H PRN PRN Reason: Pain, Moderate(Pain Scale 4-6) Last Admin: 04/08/24 04:07 Dose: 650 mg Al Hydroxide/Mg Hydroxide (Magnesium Hydrox/Alum Hydrox 30 Ml Oral.Susp) 30 ml PO Q6H PRN PRN Reason: Heartburn/Nausea Apixaban (Apixaban 5 Mg Tablet) 5 mg PO BID [facility] Last Admin: 04/08/24 08:39 Dose: 5 mg Atorvastatin Calcium (Atorvastatin Calcium 40 Mg Tablet) 40 mg PO DAILY [facility] Last Admin: 04/08/24 08:39 Dose: 40 mg Benztropine Mesylate (Benztropine Mesylate 0.5 Mg Tablet) 0.5 mg PO DAILY [facility] Last Admin: 04/08/24 09:15 Dose: 0.5 mg Carbidopa/Levodopa (Carbidopa/Levodopa 25/100 Tablet) 0.5 tab PO TID [facility] Last Admin: 04/08/24 08:40 Dose: 0.5 tab Cholestyramine Resin (Cholestyramine (With Sugar) 4 Gm Powd.Pack) 4 gm PO DAILY [facility] Last Admin: 04/08/24 08:38 Dose: 4 gm Clonidine HCl (Clonidine Hcl 0.1 Mg Tablet) 0.1 mg PO BID [facility]; Protocol Last Admin: 04/08/24 08:38 Dose: 0.1 mg Ferrous Sulfate (Ferrous Sulfate 324 Mg Tablet.Dr) 324 mg PO DAILY [facility] Last Admin: 04/08/24 08:39 Dose: 324 mg Furosemide (Furosemide 20 Mg Tablet) 20 mg PO DAILY [facility]; Protocol Last Admin: 04/08/24 08:38 Dose: 20 mg Guaifenesin/Dextromethorphan (Guaifenesin Dm 100/10/5 Ml 5 Ml Syrup) 5 ml PO Q4H PRN PRN Reason: Cough Last Admin: 03/31/24 21:05 Dose: 5 ml Hydroxyzine HCl (Hydroxyzine Hcl 25 Mg Tablet) 25 mg PO Q6H PRN PRN Reason: Anxiety, mild Hydroxyzine HCl (Hydroxyzine Hcl 50 Mg Tablet) 50 mg PO Q6H PRN PRN Reason: anxiety, moderate Lidocaine (Lidocaine 4 % Patch Adh..Patch) 1 patch TRANSDERMA DAILY [facility]; Protocol Last Admin: 04/08/24 08:45 Dose: 1 patch Loperamide HCl (Loperamide Hcl 2 Mg Capsule) 4 mg PO Q4H PRN PRN Reason: Diarrhea Magnesium Hydroxide (Milk Of Magnesia 30 Ml Oral.Susp) 30 ml PO DAILY PRN PRN Reason: Constipation Magnesium Oxide (Magnesium Oxide 400 Mg Tablet) 400 mg PO DAILY [facility] Last Admin: 04/08/24 08:39 Dose: 400 mg Metformin HCl (Metformin Hcl 500 Mg Tablet) 500 mg PO BIDWM [facility] Last Admin: 04/08/24 09:15 Dose: 500 mg Multivitamins/Vitamin C (Multivitamin Tablet) 1 tab PO DAILY [facility] Last Admin: 04/08/24 08:39 Dose: 1 tab Nystatin (Nystatin Cream 15 Gm Tube) 1 appl TOPICAL BID [facility]; Protocol Last Admin: 04/08/24 09:17 Dose: Not Given Olanzapine (Olanzapine 5 Mg Tablet) 5 mg PO DAILY PRN PRN Reason: severe anxiety Omeprazole (Omeprazole 20 Mg Capsule.Dr) 20 mg PO DAILY@0630 [facility] Last Admin: 04/08/24 07:05 Dose: Not Given Paliperidone (Paliperidone Er 3 Mg Tab.Er.24) 4.5 mg PO DAILY [facility] Last Admin: 04/08/24 09:09 Dose: 4.5 mg Quetiapine Fumarate (Quetiapine Fumarate 50 Mg Tablet) 50 mg PO DAILY [facility] Last Admin: 04/08/24 08:39 Dose: 50 mg Quetiapine Fumarate (Quetiapine Fumarate 25 Mg Tablet) 25 mg PO TID PRN PRN Reason: anxiety Last Admin: 04/05/24 21:26 Dose: 25 mg Quetiapine Fumarate 200 mg/ (Quetiapine Fumarate 50 mg) 250 mg PO BEDTIME [facility] Last Admin: 04/07/24 20:59 Dose: 250 mg Saliva Substitute (Dry Mouth [place] 60 Ml [place]) 1 spray MUCOUS MEM Q2H PRN PRN Reason: Dry Mouth Last Admin: 04/08/24 04:07 Dose: 1 spray Tizanidine HCl (Tizanidine Hcl 4 Mg Tablet) 2 mg PO TID [facility] Last Admin: 04/08/24 09:17 Dose: 2 mg Trazodone HCl (Trazodone Hcl 50 Mg Tablet) 50 mg PO BEDTIME MRX1 PRN PRN Reason: Insomnia Last Admin: 04/06/24 21:09 Dose: 50 mg Allergies Allergies Allergy/AdvReac Type Severity Reaction Status Date / Time amoxicillin [AMOXICILLIN] Allergy Severe Anaphylaxis Verified 02/05/24 10:21 aspirin [ASA] Allergy Severe RASH/FEVER/ Verified 02/05/24 10:21 VOMITING latex [LATEX] Allergy Severe Rash Verified 02/05/24 10:21 Penicillins [PENICILLINS] Allergy Severe Anaphylaxis Verified 02/05/24 10:21 sulfamethoxazole Allergy Severe Hives Verified 02/05/24 10:21 [From BACTRIM] trimethoprim [From BACTRIM] Allergy Severe Hives Verified 02/05/24 10:21 meloxicam AdvReac Intermediate GI side Verified 02/05/24 10:21 effects lactose AdvReac Unknown Verified 03/29/24 13:34 Assessment & Plan Assessment & Plan (1) Schizoaffective disorder: Status: Acute Code(s): F25.9 - Schizoaffective disorder, unspecified (2) PTSD (post-traumatic stress disorder): Status: Acute Code(s): F43.10 - Post-traumatic stress disorder, unspecified Plan Pt is a 53-year-old female with a PMH significant for?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 Medical consult for admission H&P. Mood disorder Plan as per Psychiatry Parkinsonism Continue carbidopa levodopa, benztropine Hx of PE/IVC thrombus Continue Eliquis Mha-xhxlnae-irzcihtoy type 2 diabetes Continue metformin Encouraged diabetic diet and diabetic snacking GERD PPI HLD Continue statin Thank you for allowing us to participate in the care of this patient. Signing off at this time. Please re-consult if any acute complaints or issues arise. 03/29/24: Tolerating increase of Invega, continue dosages Re-review of diagnostics-repeat urine culture from [facility] [place] 03/30/2024: Continue current regimen and plans 03/31/2024: Continue current regimen and plans. Hospitalist consult placed for rash over her buttocks 04/01/24: Magnesium 400 mg daily. Repeat Mg on 04/05/2404/02 continue tx. improvement in Mg 1.5, EKG with no changes due to low mag. 04/03 continue tx. 04/04 Continue current plan. Mg on 04/08 Discharge planning for next week. 04/07/24: Labs in the a.m. Continue current regime Discharge planning. 04/08/24: Hospitalist consult-visual changes in Parkinson's Dz Message left with [facility]-pt wanting to trial other med for IBS. Reason for continued inpatient stay Substantial Risk for: med/psych decompensation Time Spent With Patient Time: Total time managing care of this patient today ____ minutes.
[2024-04-08 20:00] VITALS: BP 126/84; PULSE 98; TEMP 36.4; O2SAT 97
[2024-04-08 20:46] VITALS: BP 126/84
[2024-04-08 20:52] LABS: Glucose, Whole Blood 145 mg/dL (60-115)
--- NOTE | 2024-04-08 21:43 | PM.EVENT ---
Event Note Date of Service: 04/08/24 Event Note: consult placed as pt was complaining of pink/blue spots in her vision . she is a poor historian but notes that her glasses are old and not her most recent rx and she is having a hard time with them. she has no eye pain, headache, floaters, pain with eye movements or sensitivity to light. she reports that she was evaluated by her opthalmologist recently for this and was told everything is normal. PE: no conjunctivitis or drainage OU. PERRLA. EOMs intact. visual macias intact bilaterally. simple visual acuity WNL. 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 it appears pt will be discharged home in the near future. she should follow up with her opthalmologist regarding this if becoming worse. Thank you for allowing me to participate in the pt's care. Signing off. Please contact the medical team if any questions or concerns. Time Spent With Patient Time: Total time managing care of this patient today ____ minutes.
[2024-04-09] MEDS: traZODone HCL 50 MG TABLET PO (00:31)
[2024-04-09] MEDS: Dry Mouth Spray 60 ML SPRAY 1 SPRAY MUCOUS MEM (04:24)
[2024-04-09 08:00] VITALS: BP 149/91; PULSE 111; RESP 18; TEMP 36.9; O2SAT 94
[2024-04-09 08:29] LABS: Glucose, Whole Blood 139 mg/dL (60-115)
[2024-04-09] MEDS: Benztropine Mesylate 0.5 MG TABLET PO (08:30)
[2024-04-09] MEDS: metFORMIN HCl 500 MG TABLET PO ×2 (08:30→17:08)
[2024-04-09] MEDS: Atorvastatin Calcium 40 MG TABLET PO (08:31)
[2024-04-09] MEDS: Multivitamin TABLET 1 TAB PO (08:31)
[2024-04-09] MEDS: Furosemide 20 MG TABLET PO (08:31)
[2024-04-09] MEDS: QUEtiapine Fumarate 50 MG TABLET PO (08:31)
[2024-04-09] MEDS: Apixaban 5 MG TABLET PO ×2 (08:31→20:46)
[2024-04-09] MEDS: Magnesium Oxide 400 MG TABLET PO (08:31)
[2024-04-09] MEDS: Ferrous Sulfate 324 MG TABLET.DR PO (08:31)
[2024-04-09] MEDS: cloNIDine HCL 0.1 MG TABLET PO ×2 (08:32→20:45)
[2024-04-09] MEDS: Carbidopa/Levodopa 25/100 TABLET 0.5 TAB PO ×3 (08:32→20:47)
[2024-04-09] MEDS: TiZANidine HCL 4 MG TABLET 2 MG PO ×3 (08:33→20:48)
[2024-04-09] MEDS: Paliperidone ER 3 MG TAB.ER.24 4.5 MG PO (08:36)
[2024-04-09] MEDS: Cholestyramine (With Sugar) 4 GM POWD.PACK PO (08:37)
--- NOTE | 2024-04-09 08:44 | HO.PSYCHPN ---
Subjective Subjective Date of Service: 04/09/24 Reason For Visit: Bipolar disorder II, PTSD Subjective Notes: Conditional Voluntary Healthcare Proxy: No Guardianship: No Medical Problems Affecting Mental Status: No Interim History: At 4am it was hard to lift my head off of the pillow. Hospitalist consult much appreciated. Pt discussed her frustration with chronic illness. Encouraged by team to be active and mobile. [facility] gastroenterology suggests low fod diet for IBS-nutrition consult was requested. Team is putting discharge plans in place-day treatment and return to OP care. Medication Compliance: Yes Side effects from medications: No Attending Groups: Intermittent Review of Systems Acute medical concerns: No Medical Review of Systems: unchanged Review of Systems Review of Systems Reports early this a.m. it was difficult to lift her head from her pillow Mental Status Exam Mental Status Exam Patient Appearance: Appropriate Patient Orientation: Person, Place, Time and Situation Level of Consciousness: Alert Patient Behavior: Appropriate Mood Description: Constricted Affect Description: Constricted Patient Cognition Impaired: No Ability to Follow Directions: Good Speech Pattern: Spontaneous Speech Memory Description: Episodic Impaired Hallucinations: Auditory and Visual Delusions: Not Present Thought Process: Goal Oriented Thought Content: positive for Goal Oriented and positive for Suicidal Ideation (denies) Depressive Symptoms: Thoughts of /Suicide (denies) Judgement: Fair Diagnostics Vital Signs (24Hr): Vital Signs - 24 hr 04/08/24 20:00 04/08/24 20:46 04/09/24 08:00 Temperature 97.5 F 98.4 F Pulse Rate 98 111 H Respiratory Rate 18 Blood Pressure 126/84 126/84 149/91 H Pulse Oximetry 97 94 Oxygen Delivery Method Room Air Room Air Transtracheal Catheter BMI result Body Mass Index 29.4 Labs 04/08/24 08:28 04/08/24 08:28 Labs: Laboratory Results - last 48 hr 04/07/24 04/08/24 04/08/24 20:41 08:06 08:28 WBC 11.0 H RBC 5.08 Hgb 12.5 Hct 39.5 MCV 77.8 L MCH 24.6 L MCHC 31.6 RDW 15.3 Plt Count 413 H MPV 9.4 Immature Gran % (Auto) 0.3 Neut % (Auto) 68.8 Lymph % (Auto) 23.6 [place] % (Auto) 4.5 Eos % (Auto) 2.3 Baso % (Auto) 0.5 Lymph # (Auto) 2.6 [place] # (Auto) 0.5 Eos # (Auto) 0.3 Baso # (Auto) 0.1 Abs Immat Gran (auto) 0.03 Absolute Neuts (auto) 7.6 Absolute Nucleated RBC 0.000 Nucleated RBC % (auto) 0.0 Sodium 141 Potassium 4.3 Chloride 105 Carbon Dioxide 26 Anion Gap 14 BUN 25 H Creatinine 0.82 Estim Creat Clear Calc 72.1 Estimated GFR > 60 POC Glucose 153 H 125 H Random Glucose 114 Estimat Average Glucose 146 Hemoglobin A1c % 6.7 H Calcium 9.8 Magnesium 1.7 Total Bilirubin 0.4 AST 18 ALT 10 Alkaline Phosphatase 77 Total Protein 6.9 Albumin 4.0 Triglycerides 103 Cholesterol 117 LDL Cholesterol, Calc 61 HDL Cholesterol 36 L Vitamin B12 716 Folate 14.5 TSH 0.49 04/08/24 04/09/24 20:48 08:22 WBC RBC Hgb Hct MCV MCH MCHC RDW Plt Count MPV Immature Gran % (Auto) Neut % (Auto) Lymph % (Auto) [place] % (Auto) Eos % (Auto) Baso % (Auto) Lymph # (Auto) [place] # (Auto) Eos # (Auto) Baso # (Auto) Abs Immat Gran (auto) Absolute Neuts (auto) Absolute Nucleated RBC Nucleated RBC % (auto) Sodium Potassium Chloride Carbon Dioxide Anion Gap BUN Creatinine Estim Creat Clear Calc Estimated GFR POC Glucose 145 H 139 H Random Glucose Estimat Average Glucose Hemoglobin A1c % Calcium Magnesium Total Bilirubin AST ALT Alkaline Phosphatase Total Protein Albumin Triglycerides Cholesterol LDL Cholesterol, Calc HDL Cholesterol Vitamin B12 Folate TSH Medications Medications Current Medications Acetaminophen (Acetaminophen 325 Mg Tablet) 325 mg PO Q6H PRN PRN Reason: Headache/Pain Mild Scale (1-3) Last Admin: 04/07/24 20:58 Dose: 325 mg Acetaminophen (Acetaminophen 325 Mg Tablet) 650 mg PO Q6H PRN PRN Reason: Pain, Moderate(Pain Scale 4-6) Last Admin: 04/08/24 04:07 Dose: 650 mg Al Hydroxide/Mg Hydroxide (Magnesium Hydrox/Alum Hydrox 30 Ml Oral.Susp) 30 ml PO Q6H PRN PRN Reason: Heartburn/Nausea Apixaban (Apixaban 5 Mg Tablet) 5 mg PO BID [facility] Last Admin: 04/09/24 08:31 Dose: 5 mg Atorvastatin Calcium (Atorvastatin Calcium 40 Mg Tablet) 40 mg PO DAILY [facility] Last Admin: 04/09/24 08:31 Dose: 40 mg Benztropine Mesylate (Benztropine Mesylate 0.5 Mg Tablet) 0.5 mg PO DAILY [facility] Last Admin: 04/09/24 08:30 Dose: 0.5 mg Carbidopa/Levodopa (Carbidopa/Levodopa 25/100 Tablet) 0.5 tab PO TID [facility] Last Admin: 04/09/24 08:32 Dose: 0.5 tab Cholestyramine Resin (Cholestyramine (With Sugar) 4 Gm Powd.Pack) 4 gm PO DAILY [facility] Last Admin: 04/09/24 08:37 Dose: 4 gm Clonidine HCl (Clonidine Hcl 0.1 Mg Tablet) 0.1 mg PO BID [facility]; Protocol Last Admin: 04/09/24 08:32 Dose: 0.1 mg Ferrous Sulfate (Ferrous Sulfate 324 Mg Tablet.Dr) 324 mg PO DAILY [facility] Last Admin: 04/09/24 08:31 Dose: 324 mg Furosemide (Furosemide 20 Mg Tablet) 20 mg PO DAILY [facility]; Protocol Last Admin: 04/09/24 08:31 Dose: 20 mg Guaifenesin/Dextromethorphan (Guaifenesin Dm 100/10/5 Ml 5 Ml Syrup) 5 ml PO Q4H PRN PRN Reason: Cough Last Admin: 03/31/24 21:05 Dose: 5 ml Hydroxyzine HCl (Hydroxyzine Hcl 25 Mg Tablet) 25 mg PO Q6H PRN PRN Reason: Anxiety, mild Hydroxyzine HCl (Hydroxyzine Hcl 50 Mg Tablet) 50 mg PO Q6H PRN PRN Reason: anxiety, moderate Lidocaine (Lidocaine 4 % Patch Adh..Patch) 1 patch TRANSDERMA DAILY [facility]; Protocol Last Admin: 04/08/24 08:45 Dose: 1 patch Loperamide HCl (Loperamide Hcl 2 Mg Capsule) 4 mg PO Q4H PRN PRN Reason: Diarrhea Magnesium Hydroxide (Milk Of Magnesia 30 Ml Oral.Susp) 30 ml PO DAILY PRN PRN Reason: Constipation Magnesium Oxide (Magnesium Oxide 400 Mg Tablet) 400 mg PO DAILY [facility] Last Admin: 04/09/24 08:31 Dose: 400 mg Metformin HCl (Metformin Hcl 500 Mg Tablet) 500 mg PO BIDWM [facility] Last Admin: 04/09/24 08:30 Dose: 500 mg Multivitamins/Vitamin C (Multivitamin Tablet) 1 tab PO DAILY [facility] Last Admin: 04/09/24 08:31 Dose: 1 tab Nystatin (Nystatin Cream 15 Gm Tube) 1 appl TOPICAL BID [facility]; Protocol Last Admin: 04/08/24 20:41 Dose: Not Given Olanzapine (Olanzapine 5 Mg Tablet) 5 mg PO DAILY PRN PRN Reason: severe anxiety Omeprazole (Omeprazole 20 Mg Capsule.Dr) 20 mg PO DAILY@0630 [facility] Last Admin: 04/09/24 08:42 Dose: Not Given Paliperidone (Paliperidone Er 3 Mg Tab.Er.24) 4.5 mg PO DAILY [facility] Last Admin: 04/09/24 08:36 Dose: 4.5 mg Quetiapine Fumarate (Quetiapine Fumarate 50 Mg Tablet) 50 mg PO DAILY [facility] Last Admin: 04/09/24 08:31 Dose: 50 mg Quetiapine Fumarate (Quetiapine Fumarate 25 Mg Tablet) 25 mg PO TID PRN PRN Reason: anxiety Last Admin: 04/05/24 21:26 Dose: 25 mg Quetiapine Fumarate 200 mg/ (Quetiapine Fumarate 50 mg) 250 mg PO BEDTIME [facility] Last Admin: 04/08/24 20:45 Dose: 250 mg Saliva Substitute (Dry Mouth [place] 60 Ml [place]) 1 spray MUCOUS MEM Q2H PRN PRN Reason: Dry Mouth Last Admin: 04/09/24 04:24 Dose: 1 spray Tizanidine HCl (Tizanidine Hcl 4 Mg Tablet) 2 mg PO TID [facility] Last Admin: 04/09/24 08:33 Dose: 2 mg Trazodone HCl (Trazodone Hcl 50 Mg Tablet) 50 mg PO BEDTIME MRX1 PRN PRN Reason: Insomnia Last Admin: 04/09/24 00:31 Dose: 50 mg Allergies Allergies Allergy/AdvReac Type Severity Reaction Status Date / Time amoxicillin [AMOXICILLIN] Allergy Severe Anaphylaxis Verified 02/05/24 10:21 aspirin [ASA] Allergy Severe RASH/FEVER/ Verified 02/05/24 10:21 VOMITING latex [LATEX] Allergy Severe Rash Verified 02/05/24 10:21 Penicillins [PENICILLINS] Allergy Severe Anaphylaxis Verified 02/05/24 10:21 sulfamethoxazole Allergy Severe Hives Verified 02/05/24 10:21 [From BACTRIM] trimethoprim [From BACTRIM] Allergy Severe Hives Verified 02/05/24 10:21 meloxicam AdvReac Intermediate GI side Verified 02/05/24 10:21 effects lactose AdvReac Unknown Verified 03/29/24 13:34 Assessment & Plan Assessment & Plan (1) Schizoaffective disorder: Status: Acute Code(s): F25.9 - Schizoaffective disorder, unspecified (2) PTSD (post-traumatic stress disorder): Status: Acute Code(s): F43.10 - Post-traumatic stress disorder, unspecified Plan Pt is a 53-year-old female with a PMH significant for?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 Medical consult for admission H&P. Mood disorder Plan as per Psychiatry Parkinsonism Continue carbidopa levodopa, benztropine Hx of PE/IVC thrombus Continue Eliquis Kij-uvfdyik-hbuvgcegr type 2 diabetes Continue metformin Encouraged diabetic diet and diabetic snacking GERD PPI HLD Continue statin Thank you for allowing us to participate in the care of this patient. Signing off at this time. Please re-consult if any acute complaints or issues arise. 03/29/24: Tolerating increase of Invega, continue dosages Re-review of diagnostics-repeat urine culture from [facility] 03/30/2024: Continue current regimen and plans 03/31/2024: Continue current regimen and plans. Hospitalist consult placed for rash over her buttocks 04/01/24: Magnesium 400 mg daily. Repeat Mg on 04/05/2404/02 continue tx. improvement in Mg 1.5, EKG with no changes due to low mag. 04/03 continue tx. 04/04 Continue current plan. Mg on 04/08 Discharge planning for next week. 04/07/24: Labs in the a.m. Continue current regime Discharge planning. 04/09/24 Nutrition consult for low fod diet Discharge planning Reason for continued inpatient stay Substantial Risk for: med/psych decompensation Time Spent With Patient Time: Total time managing care of this patient today ____ minutes.
[2024-04-09] MEDS: Lidocaine 4 % Patch ADH..PATCH 1 PATCH TRANSDERMA (08:47)
[2024-04-09 19:26] LABS: Glucose, Whole Blood 158 mg/dL (60-115)
[2024-04-09 20:00] VITALS: BP 137/92; PULSE 100; TEMP 36.1; O2SAT 97
[2024-04-09 20:45] VITALS: BP 137/92
[2024-04-09] MEDS: Acetaminophen 325 MG TABLET 650 MG PO (20:46)
[2024-04-10] MEDS: traZODone HCL 50 MG TABLET PO ×2 (01:29→20:22)
--- NOTE | 2024-04-10 06:59 | PC.NURSE ---
At approximately 0640, patient reported to an [facility] that she could not get up out of bed. This news writer went to the patient's room, at which time the patient stated she couldn't even pick my head up off the pillow. This news writer instructed the patient to first lower her legs/feet over the side of the bed; patient attempted to do so. At that time, patient protested that she was trying as hard as I can! This news writer then offered to steady the patient by putting an arm under her armpit, while she attempted to get up. The patient was then able to get up on her own, but without using this news writer's arm or putting weight on this news writer in any way.
[2024-04-10 07:25] LABS: Glucose, Whole Blood 154 mg/dL (60-115)
[2024-04-10 08:04] VITALS: BP 139/87; PULSE 103; TEMP 36.3; O2SAT 95
[2024-04-10] MEDS: cloNIDine HCL 0.1 MG TABLET PO ×2 (08:49→20:21)
[2024-04-10] MEDS: Acetaminophen 325 MG TABLET 650 MG PO (08:49)
[2024-04-10] MEDS: Furosemide 20 MG TABLET PO (08:49)
[2024-04-10] MEDS: Paliperidone ER 3 MG TAB.ER.24 4.5 MG PO (08:50)
[2024-04-10] MEDS: Benztropine Mesylate 0.5 MG TABLET PO (08:52)
[2024-04-10] MEDS: TiZANidine HCL 4 MG TABLET 2 MG PO ×3 (08:52→20:22)
[2024-04-10] MEDS: metFORMIN HCl 500 MG TABLET PO ×2 (08:52→17:13)
[2024-04-10] MEDS: Carbidopa/Levodopa 25/100 TABLET 0.5 TAB PO ×3 (08:53→20:21)
[2024-04-10] MEDS: QUEtiapine Fumarate 50 MG TABLET PO (08:54)
[2024-04-10] MEDS: Ferrous Sulfate 324 MG TABLET.DR PO (08:54)
[2024-04-10] MEDS: Magnesium Oxide 400 MG TABLET PO (08:54)
[2024-04-10] MEDS: Apixaban 5 MG TABLET PO ×2 (08:54→20:21)
[2024-04-10] MEDS: Multivitamin TABLET 1 TAB PO (08:54)
[2024-04-10] MEDS: Atorvastatin Calcium 40 MG TABLET PO (08:54)
[2024-04-10] MEDS: Cholestyramine (With Sugar) 4 GM POWD.PACK PO (08:55)
[2024-04-10] MEDS: Lidocaine 4 % Patch ADH..PATCH 1 PATCH TRANSDERMA (08:56)
--- NOTE | 2024-04-10 10:16 | HO.PSYCHPN ---
Subjective Subjective Date of Service: 04/10/24 Reason For Visit: Bipolar disorder II, PTSD Subjective Notes: Conditional Voluntary Healthcare Proxy: No Guardianship: No Medical Problems Affecting Mental Status: No Interim History: Reviewed discharge plans for 04/11. Review of medicines Review of consult from [facility] Gastroenterology and IBS plan of care-Zofran prn, Cholestyramine and discussed their suggestion of fodmap diet plan. Reivew of Parkinson's questions. Pt discussed fearing having to go to a half-way, Discussed OT/PT recommendations for ongoing activity and movement. Medication Compliance: Yes Side effects from medications: No Attending Groups: Yes Review of Systems Parkinson's disease Review of Systems Review of Systems Reports early a.m. difficulty lifting her head up off the pillow. She reports she is able to get out of bed and go to report this to the team. Mental Status Exam Mental Status Exam Patient Appearance: Appropriate Patient Orientation: Person, Place, Time and Situation Level of Consciousness: Alert Patient Behavior: Appropriate Mood Description: Constricted and Flat Affect Description: Constricted and Flat Patient Cognition Impaired: No Ability to Follow Directions: Good Speech Pattern: Spontaneous Speech Memory Description: Episodic Impaired Delusions: Not Present Thought Process: Goal Oriented Thought Content: positive for Goal Oriented and positive for Suicidal Ideation (denies) Depressive Symptoms: Thoughts of /Suicide (denies) Judgement: Good Diagnostics Vital Signs (24Hr): Vital Signs - 24 hr 04/09/24 20:00 04/09/24 20:45 04/10/24 08:04 Temperature 96.9 F 97.4 F Pulse Rate 100 103 H Blood Pressure 137/92 H 137/92 H 139/87 Pulse Oximetry 97 95 Oxygen Delivery Method Room Air Room Air BMI result Body Mass Index 29.4 Labs 04/08/24 08:28 04/08/24 08:28 Labs: Laboratory Results - last 48 hr 04/08/24 04/09/24 04/09/24 20:48 08:22 19:19 POC Glucose 145 H 139 H 158 H 04/10/24 07:21 POC Glucose 154 H Medications Medications Current Medications Acetaminophen (Acetaminophen 325 Mg Tablet) 650 mg PO Q6H PRN PRN Reason: Pain 1-10 Last Admin: 04/10/24 08:49 Dose: 650 mg Al Hydroxide/Mg Hydroxide (Magnesium Hydrox/Alum Hydrox 30 Ml Oral.Susp) 30 ml PO Q6H PRN PRN Reason: Heartburn/Nausea Apixaban (Apixaban 5 Mg Tablet) 5 mg PO BID [facility] Last Admin: 04/10/24 08:54 Dose: 5 mg Atorvastatin Calcium (Atorvastatin Calcium 40 Mg Tablet) 40 mg PO DAILY [facility] Last Admin: 04/10/24 08:54 Dose: 40 mg Benztropine Mesylate (Benztropine Mesylate 0.5 Mg Tablet) 0.5 mg PO DAILY [facility] Last Admin: 04/10/24 08:52 Dose: 0.5 mg Carbidopa/Levodopa (Carbidopa/Levodopa 25/100 Tablet) 0.5 tab PO TID [facility] Last Admin: 04/10/24 08:53 Dose: 0.5 tab Cholestyramine Resin (Cholestyramine (With Sugar) 4 Gm Powd.Pack) 4 gm PO DAILY [facility] Last Admin: 04/10/24 08:55 Dose: 4 gm Clonidine HCl (Clonidine Hcl 0.1 Mg Tablet) 0.1 mg PO BID [facility]; Protocol Last Admin: 04/10/24 08:49 Dose: 0.1 mg Ferrous Sulfate (Ferrous Sulfate 324 Mg Tablet.Dr) 324 mg PO DAILY [facility] Last Admin: 04/10/24 08:54 Dose: 324 mg Furosemide (Furosemide 20 Mg Tablet) 20 mg PO DAILY [facility]; Protocol Last Admin: 04/10/24 08:49 Dose: 20 mg Guaifenesin/Dextromethorphan (Guaifenesin Dm 100/10/5 Ml 5 Ml Syrup) 5 ml PO Q4H PRN PRN Reason: Cough Last Admin: 03/31/24 21:05 Dose: 5 ml Hydroxyzine HCl (Hydroxyzine Hcl 25 Mg Tablet) 25 mg PO Q6H PRN PRN Reason: Anxiety, mild Lidocaine (Lidocaine 4 % Patch Adh..Patch) 1 patch TRANSDERMA DAILY [facility]; Protocol Last Admin: 04/10/24 08:56 Dose: 1 patch Loperamide HCl (Loperamide Hcl 2 Mg Capsule) 4 mg PO Q4H PRN PRN Reason: Diarrhea Magnesium Hydroxide (Milk Of Magnesia 30 Ml Oral.Susp) 30 ml PO DAILY PRN PRN Reason: Constipation Magnesium Oxide (Magnesium Oxide 400 Mg Tablet) 400 mg PO DAILY [facility] Last Admin: 04/10/24 08:54 Dose: 400 mg Metformin HCl (Metformin Hcl 500 Mg Tablet) 500 mg PO BIDWM [facility] Last Admin: 04/10/24 08:52 Dose: 500 mg Multivitamins/Vitamin C (Multivitamin Tablet) 1 tab PO DAILY [facility] Last Admin: 04/10/24 08:54 Dose: 1 tab Nystatin (Nystatin Cream 15 Gm Tube) 1 appl TOPICAL BID [facility]; Protocol Last Admin: 04/10/24 08:57 Dose: Not Given Omeprazole (Omeprazole 20 Mg Capsule.Dr) 20 mg PO DAILY@0630 [facility] Last Admin: 04/10/24 06:56 Dose: Not Given Paliperidone (Paliperidone Er 3 Mg Tab.Er.24) 4.5 mg PO DAILY [facility] Last Admin: 04/10/24 08:50 Dose: 4.5 mg Quetiapine Fumarate (Quetiapine Fumarate 50 Mg Tablet) 50 mg PO DAILY [facility] Last Admin: 04/10/24 08:54 Dose: 50 mg Quetiapine Fumarate 200 mg/ (Quetiapine Fumarate 50 mg) 250 mg PO BEDTIME [facility] Last Admin: 04/09/24 20:46 Dose: 250 mg Quetiapine Fumarate (Quetiapine Fumarate 25 Mg Tablet) 25 mg PO TID PRN PRN Reason: severe anxiety Saliva Substitute (Dry Mouth [place] 60 Ml [place]) 1 spray MUCOUS MEM Q2H PRN PRN Reason: Dry Mouth Last Admin: 04/09/24 04:24 Dose: 1 spray Tizanidine HCl (Tizanidine Hcl 4 Mg Tablet) 2 mg PO TID [facility] Last Admin: 04/10/24 08:52 Dose: 2 mg Trazodone HCl (Trazodone Hcl 50 Mg Tablet) 50 mg PO BEDTIME MRX1 PRN PRN Reason: Insomnia Last Admin: 04/10/24 01:29 Dose: 50 mg Allergies Allergies Allergy/AdvReac Type Severity Reaction Status Date / Time amoxicillin [AMOXICILLIN] Allergy Severe Anaphylaxis Verified 02/05/24 10:21 aspirin [ASA] Allergy Severe RASH/FEVER/ Verified 02/05/24 10:21 VOMITING latex [LATEX] Allergy Severe Rash Verified 02/05/24 10:21 Penicillins [PENICILLINS] Allergy Severe Anaphylaxis Verified 02/05/24 10:21 sulfamethoxazole Allergy Severe Hives Verified 02/05/24 10:21 [From BACTRIM] trimethoprim [From BACTRIM] Allergy Severe Hives Verified 02/05/24 10:21 meloxicam AdvReac Intermediate GI side Verified 02/05/24 10:21 effects lactose AdvReac Unknown Verified 03/29/24 13:34 Assessment & Plan Assessment & Plan (1) Parkinsons disease: Qualifiers: Dyskinesia presence: with dyskinesia Fluctuating manifestations: without fluctuating manifestations Qualified Code(s): G20.B1 - Parkinson's disease with dyskinesia, without mention of fluctuations Status: Acute Code(s): G20.A1 - Parkinson's disease without dyskinesia, without mention of fluctuations Plan Pt is a 53-year-old female with a PMH significant for?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 Medical consult for admission H&P. Mood disorder Plan as per Psychiatry Parkinsonism Continue carbidopa levodopa, benztropine Hx of PE/IVC thrombus Continue Eliquis Hmd-qrddhck-lbrwhmxiy type 2 diabetes Continue metformin Encouraged diabetic diet and diabetic snacking GERD PPI HLD Continue statin Thank you for allowing us to participate in the care of this patient. Signing off at this time. Please re-consult if any acute complaints or issues arise. 03/29/24: Tolerating increase of Invega, continue dosages Re-review of diagnostics-repeat urine culture from [facility] 03/30/2024: Continue current regimen and plans 03/31/2024: Continue current regimen and plans. Hospitalist consult placed for rash over her buttocks 04/01/24: Magnesium 400 mg daily. Repeat Mg on 04/05/2404/02 continue tx. improvement in Mg 1.5, EKG with no changes due to low mag. 04/03 continue tx. 04/04 Continue current plan. Mg on 04/08 Discharge planning for next week. 04/07/24: Labs in the a.m. Continue current regime Discharge planning. 04/09/24 Nutrition consult for low fod diet Discharge planning 04/10 Discharge 04/11 Reason for continued inpatient stay Substantial Risk for: stable for discharge Time Spent With Patient Time: Total time managing care of this patient today ____ minutes.
[2024-04-10 11:42] VITALS: BP 122/75; PULSE 88; TEMP 36.3; O2SAT 97
[2024-04-10 19:44] VITALS: BP 138/87; PULSE 105; TEMP 37.1; O2SAT 98
[2024-04-10] MEDS: QUEtiapine Fumarate 25 MG TABLET PO (20:22)
[2024-04-10 21:58] LABS: Glucose, Whole Blood 132 mg/dL (60-115)
--- NOTE | 2024-04-11 05:29 | PM.PSYDC ---
DS: Providers Provider Date of Service: 04/11/24 Date of admission: 03/27/24 15:39 Date of discharge: 04/11/24 Primary care physician: Cristofer Walker PA-C Admitting clinician: Eva Cabrera Attending physician on admission: Moises Dejesus Consults: 03/27/24 18:10 Consult to Hospitalist Routine Comment: Consulting Provider: [facility] Reason For Exam: Transfer pt 03/31/24 09:01 Consult to Hospitalist Routine Comment: Consulting Provider: [facility] Reason For Exam: fungal? infection between buttocks 04/08/24 16:33 Consult to Hospitalist Routine Comment: Consulting Provider: [facility] Reason For Exam: Pt reports vision has pink/blue patches, both eyes Attending physician on discharge: Moises Dejesus Discharging clinician: Eva Cabrera DS: Diagnosis Discharge Diagnosis (1) Schizoaffective disorder: Status: Acute (2) PTSD (post-traumatic stress disorder): Status: Acute DS: Medications Discharge Medications Home Medications: Previous Rx's ?Medication ?Instructions ?Recorded blood-glucose meter (OneTouch #1 ea 02/23/23 Ultra2 Meter kit) Pull-ups #1 ea 11/15/23 Long reach Back scrubber personal #1 ea 03/18/24 hygiene aid acetaminophen 325 mg tablet 650 mg (2 x 325 mg) PO Q6H PRN 04/11/24 Pain 1-10 #0 tabs apixaban 5 mg tablet (Eliquis) 5 mg PO BID #60 tabs 04/11/24 atorvastatin 40 mg tablet 40 mg PO DAILY #90 tabs 04/11/24 benztropine 0.5 mg tablet 0.5 mg PO DAILY #30 tabs 04/11/24 blood sugar diagnostic (OneTouch #100 ea 04/11/24 Ultra Test strips) carbidopa 25 mg-levodopa 100 mg 0.5 tab PO TID 90 days #135 tabs 04/11/24 tablet cholestyramine (with sugar) 4 gram 1 ea PO DAILY #30 packets 04/11/24 powder for susp in a packet clonidine HCl 0.1 mg tablet 0.1 mg PO BID #180 tabs 04/11/24 diaper,brief,adult,disposable #100 ea 01/30/25 (Briefs, Adult-Extra Large) ferrous sulfate 325 mg (65 mg 325 mg PO DAILY #30 tabs 04/11/24 iron) tablet furosemide 20 mg tablet 20 mg PO DAILY #90 tabs 04/11/24 lancets 30 gauge (OneTouch #100 ea 04/11/24 UltraSoft 2 Lancet) lidocaine 4 % topical patch 1 patch topical DAILY #30 ea 04/11/24 (Lidocaine Pain Relief) loperamide 2 mg capsule 4 mg (2 x 2 mg) PO Q4H PRN 04/11/24 Diarrhea #60 caps magnesium hydroxide 400 mg/5 mL 2,400 mg (30 mL) PO BEDTIME PRN 04/11/24 oral suspension (Milk of Magnesia) Constipation #769 mL magnesium oxide 400 mg (241.3 mg 400 mg PO DAILY #30 tabs 04/11/24 magnesium) tablet melatonin 3 mg tablet 6 mg (2 x 3 mg) PO DAILY #60 tabs 04/11/24 metformin 500 mg tablet 500 mg PO BIDWM #60 tabs 04/11/24 multivitamin 1 tab PO DAILY #30 tabs 04/11/24 nystatin 100,000 unit/gram topical 1 appl topical BID #15 grams 04/11/24 cream omeprazole 20 mg capsule,delayed 20 mg PO DAILY@0630 #30 caps 04/11/24 release paliperidone 3 mg tablet,extended 4.5 mg (1.5 x 3 mg) PO DAILY #45 04/11/24 release 24 hr (Invega) tabs quetiapine 100 mg tablet 250 mg (2.5 x 100 mg) PO BEDTIME 04/11/24 #90 tabs quetiapine 25 mg tablet 25 mg PO TID PRN Anxiety #90 tabs 04/11/24 quetiapine 50 mg tablet 50 mg PO DAILY #30 tabs 04/11/24 sennosides 8.6 mg tablet (senna) 17.2 mg (2 x 8.6 mg) PO DAILY PRN 04/11/24 Constipation #60 packets tizanidine 4 mg tablet 2 mg (1/2 x 4 mg) PO TID #90 tabs 04/11/24 trazodone 50 mg tablet 50 mg PO BEDTIME MRX1 PRN Insomnia 04/11/24 #60 tabs Mental Status Exam Mental Status Exam Patient Appearance: Appropriate Patient Orientation: Person, Place, Time and Situation Level of Consciousness: Alert Patient Behavior: Appropriate Mood Description: Constricted and Flat Affect Description: Constricted and Flat Patient Cognition Impaired: No Ability to Follow Directions: Good Speech Pattern: Spontaneous Speech Memory Description: Episodic Impaired Delusions: Not Present Thought Process: Goal Oriented Thought Content: positive for Goal Oriented and positive for Suicidal Ideation (denies) Depressive Symptoms: Thoughts of /Suicide (denies) Judgement: Good Data Data Completed and Pending Completed studies during hospitalization [Text1]: 04/04/24 04/04/24 04/04/24 07:52 08:06 20:15 WBC RBC Hgb Hct MCV MCH MCHC RDW Plt Count MPV Immature Gran % (Auto) Neut % (Auto) Lymph % (Auto) [place] % (Auto) Eos % (Auto) Baso % (Auto) Lymph # (Auto) [place] # (Auto) Eos # (Auto) Baso # (Auto) Abs Immat Gran (auto) Absolute Neuts (auto) Absolute Nucleated RBC Nucleated RBC % (auto) Sodium Potassium Chloride Carbon Dioxide Anion Gap BUN Creatinine 0.80 Estim Creat Clear Calc 73.9 Estimated GFR > 60 POC Glucose 145 H 152 H Random Glucose Estimat Average Glucose Hemoglobin A1c % Calcium Magnesium Total Bilirubin AST ALT Alkaline Phosphatase Total Protein Albumin Triglycerides Cholesterol LDL Cholesterol, Calc HDL Cholesterol Vitamin B12 Folate [facility] 04/05/24 04/05/24 04/05/24 08:08 08:40 21:44 WBC RBC Hgb Hct MCV MCH MCHC RDW Plt Count MPV Immature Gran % (Auto) Neut % (Auto) Lymph % (Auto) [place] % (Auto) Eos % (Auto) Baso % (Auto) Lymph # (Auto) [place] # (Auto) Eos # (Auto) Baso # (Auto) Abs Immat Gran (auto) Absolute Neuts (auto) Absolute Nucleated RBC Nucleated RBC % (auto) Sodium Potassium Chloride Carbon Dioxide Anion Gap BUN Creatinine Estim Creat Clear Calc Estimated GFR POC Glucose 131 H 153 H Random Glucose Estimat Average Glucose Hemoglobin A1c % Calcium Magnesium 1.6 Total Bilirubin AST ALT Alkaline Phosphatase Total Protein Albumin Triglycerides Cholesterol LDL Cholesterol, Calc HDL Cholesterol Vitamin B12 Folate [facility] 04/06/24 04/06/24 04/07/24 08:35 21:37 08:05 WBC RBC Hgb Hct MCV MCH MCHC RDW Plt Count MPV Immature Gran % (Auto) Neut % (Auto) Lymph % (Auto) [place] % (Auto) Eos % (Auto) Baso % (Auto) Lymph # (Auto) [place] # (Auto) Eos # (Auto) Baso # (Auto) Abs Immat Gran (auto) Absolute Neuts (auto) Absolute Nucleated RBC Nucleated RBC % (auto) Sodium Potassium Chloride Carbon Dioxide Anion Gap BUN Creatinine Estim Creat Clear Calc Estimated GFR POC Glucose 173 H 140 H 123 H Random Glucose Estimat Average Glucose Hemoglobin A1c % Calcium Magnesium Total Bilirubin AST ALT Alkaline Phosphatase Total Protein Albumin Triglycerides Cholesterol LDL Cholesterol, Calc HDL Cholesterol Vitamin B12 Folate TSH 04/07/24 04/08/24 04/08/24 20:41 08:06 08:28 WBC 11.0 H RBC 5.08 Hgb 12.5 Hct 39.5 MCV 77.8 L MCH 24.6 L MCHC 31.6 RDW 15.3 Plt Count 413 H MPV 9.4 Immature Gran % (Auto) 0.3 Neut % (Auto) 68.8 Lymph % (Auto) 23.6 [place] % (Auto) 4.5 Eos % (Auto) 2.3 Baso % (Auto) 0.5 Lymph # (Auto) 2.6 [place] # (Auto) 0.5 Eos # (Auto) 0.3 Baso # (Auto) 0.1 Abs Immat Gran (auto) 0.03 Absolute Neuts (auto) 7.6 Absolute Nucleated RBC 0.000 Nucleated RBC % (auto) 0.0 Sodium 141 Potassium 4.3 Chloride 105 Carbon Dioxide 26 Anion Gap 14 BUN 25 H Creatinine 0.82 Estim Creat Clear Calc 72.1 Estimated GFR > 60 POC Glucose 153 H 125 H Random Glucose 114 Estimat Average Glucose 146 Hemoglobin A1c % 6.7 H Calcium 9.8 Magnesium 1.7 Total Bilirubin 0.4 AST 18 ALT 10 Alkaline Phosphatase 77 Total Protein 6.9 Albumin 4.0 Triglycerides 103 Cholesterol 117 LDL Cholesterol, Calc 61 HDL Cholesterol 36 L Vitamin B12 716 Folate 14.5 TSH 0.49 04/08/24 04/09/24 04/09/24 20:48 08:22 19:19 WBC RBC Hgb Hct MCV MCH MCHC RDW Plt Count MPV Immature Gran % (Auto) Neut % (Auto) Lymph % (Auto) [place] % (Auto) Eos % (Auto) Baso % (Auto) Lymph # (Auto) [place] # (Auto) Eos # (Auto) Baso # (Auto) Abs Immat Gran (auto) Absolute Neuts (auto) Absolute Nucleated RBC Nucleated RBC % (auto) Sodium Potassium Chloride Carbon Dioxide Anion Gap BUN Creatinine Estim Creat Clear Calc Estimated GFR POC Glucose 145 H 139 H 158 H Random Glucose Estimat Average Glucose Hemoglobin A1c % Calcium Magnesium Total Bilirubin AST ALT Alkaline Phosphatase Total Protein Albumin Triglycerides Cholesterol LDL Cholesterol, Calc HDL Cholesterol Vitamin B12 Folate TSH 04/10/24 04/10/24 07:21 21:52 WBC RBC Hgb Hct MCV MCH MCHC RDW Plt Count MPV Immature Gran % (Auto) Neut % (Auto) Lymph % (Auto) [place] % (Auto) Eos % (Auto) Baso % (Auto) Lymph # (Auto) [place] # (Auto) Eos # (Auto) Baso # (Auto) Abs Immat Gran (auto) Absolute Neuts (auto) Absolute Nucleated RBC Nucleated RBC % (auto) Sodium Potassium Chloride Carbon Dioxide Anion Gap BUN Creatinine Estim Creat Clear Calc Estimated GFR POC Glucose 154 H 132 H Random Glucose Estimat Average Glucose Hemoglobin A1c % Calcium Magnesium Total Bilirubin AST ALT Alkaline Phosphatase Total Protein Albumin Triglycerides Cholesterol LDL Cholesterol, Calc HDL Cholesterol Vitamin B12 Folate TSH 03/31/24 09:00 Urine clean catch - Clean Catch Midstream Urine Culture - Final DS: Summary Hospital Course Hospital Course: Admission to adult psychiatry for exacerbation of schizoaffective disorder, PTSD. Pt has a diagnosis of Parkinson's Disease. 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 Stressors include feeling disrespected by her family-siblings and children and feeling powerlessness due to chronic illnesses and loss of functioning. Pt lives in a rest home and reports she is needing more help with ADL's than their team or she can provide for herself and she has much fear about her care needs moving forward. Medications were evaluated and adjusted. Pt had consultation from PT and from nursing to assist her with ADL mgt and did improve her skills during her stay. Pt was able to utilize the milieu groups for support and to increase her coping skills as well. She returns to her rest home, out pt team and will attend a day program as well to continue to assist her in engagement with her peers. Status at Discharge Functional status at discharge: uses cane/walker Overall status at discharge: patient is progressing back to baseline Time Spent with Patient Time attestation: Total time managing care of this patient today ____ minutes. Time spent: Less than 30 minutes Discharge Plan Discharge Anticipated Discharge Date/Time: 04/11/24 12:00 Patient Disposition: Xfer Other Discharge Diagnosis: PTSD Schizoaffective Disorder Parkinson's Disease IBS Referrals: [facility] [Other] - 04/11/24 11:30 am ([facility] [facility] will be [employer] Confirmation number for ride is #[id number]) [facility] [Other] - 04/12/24 10:00 am (Adult Day Program Referral Agency will follow-up for scheduled tour of facility on 04/12/24 at 10:00 am) Eddie Pacheco NP: [facility] (psychiatry) [Other] - 04/16/24 2:00 pm (Hospital discharge appointment Appointment by telephone ) Sri Morton: [facility] [Other] - 04/19/24 12:15 pm (Hospital discharge appointment Appointment will be by telephone (Audio) call.) Cristofer Walker PA-C [Primary Care Provider] - 1 Week (The office will call you to schedule an appointment to be seen in 1 week) Discharge Medications: New tizanidine 4 mg Tablet 2 mg PO TID Qty: 90 0RF acetaminophen 325 mg Tablet 650 mg PO Q6H PRN (Reason: Pain 1-10) Qty: 0 0RF cholestyramine (with sugar) 4 gram Powder In Packet 1 ea PO DAILY Qty: 30 0RF loperamide 2 mg Capsule 4 mg PO Q4H PRN (Reason: Diarrhea) Qty: 60 0RF trazodone 50 mg Tablet 50 mg PO BEDTIME MRX1 PRN (Reason: Insomnia) Qty: 60 0RF magnesium oxide 400 mg (241.3 mg magnesium) Tablet 400 mg PO DAILY Qty: 30 0RF paliperidone [Invega] 3 mg Tablet Extended Release 24 Hr 4.5 mg PO DAILY Qty: 45 0RF metformin 500 mg Tablet 500 mg PO BIDWM Qty: 60 0RF nystatin 100,000 unit/gram Cream 1 appl topical BID Qty: 15 0RF Protocol: Apply to: Apply to: rash omeprazole 20 mg Capsule,Delayed Release(Dr/Ec) 20 mg PO DAILY@0630 Qty: 30 0RF (DME) Ultra-Light Rollator Misc See Rx Instructions .Route Qty: 1 0RF Rx Instructions: As directed Continued (DME) blood-glucose meter [[employer] GroupTouch Ultra2 Meter] Kit See Rx Instructions .Route Qty: 1 0RF Rx Instructions: As directed (DME) Long reach Back scrubber personal hygiene aid See Rx Instructions .Route .MEDSUPPLY Qty: 1 0RF Rx Instructions: As directed multivitamin Tablet 1 tab PO DAILY Qty: 30 2RF quetiapine 25 mg tablet 25 mg PO TID PRN (Reason: Anxiety) Qty: 90 0RF atorvastatin 40 mg tablet 40 mg PO DAILY Qty: 90 0RF Rx Instructions: take at bedtime sennosides [senna] 8.6 mg Tablet 17.2 mg PO DAILY PRN (Reason: Constipation) Qty: 60 0RF clonidine HCl 0.1 mg tablet 0.1 mg PO BID Qty: 180 1RF benztropine 0.5 mg tablet 0.5 mg PO DAILY Qty: 30 0RF melatonin 3 mg Tablet 6 mg PO DAILY Qty: 60 0RF (DME) OneTouch Ultra Test Strip See Rx Instructions .Route Qty: 100 3RF Rx Instructions: As directed once per day magnesium hydroxide [Milk of Magnesia] 400 mg/5 mL Suspension 2,400 mg PO BEDTIME PRN (Reason: Constipation) Qty: 769 0RF ferrous sulfate 325 mg (65 mg iron) Tablet 325 mg PO DAILY Qty: 30 0RF furosemide 20 mg tablet 20 mg PO DAILY Qty: 90 1RF carbidopa-levodopa 25-100 mg tablet 0.5 tab PO TID 90 Days Qty: 135 1RF (DME) Briefs, Adult-Extra Large Misc See Rx Instructions .Route Qty: 100 1RF Rx Instructions: As directed quetiapine 50 mg Tablet 50 mg PO DAILY Qty: 30 0RF (DME) lancets [OneTouch UltraSoft 2 Lancet] 30 gauge misc See Rx Instructions .Route Qty: 100 0RF Rx Instructions: As directed once per day Eliquis 5 mg tablet 5 mg PO BID Qty: 60 0RF Changed lidocaine [Lidocaine Pain Relief] 4 % Adhesive Patch,Medicated 1 patch TOPICAL DAILY Qty: 30 0RF quetiapine 100 mg tablet 250 mg PO BEDTIME Qty: 90 0RF Discontinued tizanidine 2 mg tablet 2 mg PO TID pantoprazole 40 mg tablet,delayed release (DR/EC) 20 mg PO DAILY paliperidone 3 mg tablet extended release 24 hr 3 mg PO QAM cholestyramine-[place] [Cholestyramine Light] 4 gram powder in packet 4 g PO DAILY PRN (Reason: diarrhea flare) 30 Days Qty: 60 0RF Rx Instructions: administer w/meal; avoid other meds within 1hr before or 4-6hr after dose trazodone 50 mg tablet 50 mg PO DAILY metformin 500 mg tablet 500 mg PO BID 90 Days Qty: 180 1RF No Action (DME) Pull-ups xtra large See Rx Instructions .Route .MEDSUPPLY Qty: 1 6RF Rx Instructions: As directed Discharge Orders: Discharge Order (Routine); Ordered 04/11/24 Ordered By: Eva Cabrera Diet: Advance to usual diet Activity on Discharge: As tolerated Stand Alone Forms: Patient Portal Discharge page, Community Support Print Language: [place] Care Plan Goals: Mood and Behavioral Stabilization Health Concerns: Mood and Behavioral Stabilization Plan of Treatment: Attend scheduled appointments Take medications as directed Assessment: No SI,HI, Apprehensive about discharge No AH,VH No sx of acute miquel or psychosis Discharge Date/Time: 04/11/24 11:39
[2024-04-11] MEDS: Dry Mouth Spray 60 ML SPRAY 1 SPRAY MUCOUS MEM (06:05)
[2024-04-11 07:56] VITALS: BP 134/88; PULSE 98; RESP 18; TEMP 36.8; O2SAT 97
[2024-04-11 08:05] LABS: Glucose, Whole Blood 121 mg/dL (60-115)
[2024-04-11] MEDS: Magnesium Oxide 400 MG TABLET PO (08:20)
[2024-04-11] MEDS: Omeprazole 20 MG CAPSULE.DR PO (08:20)
[2024-04-11] MEDS: metFORMIN HCl 500 MG TABLET PO (08:20)
[2024-04-11] MEDS: Paliperidone ER 3 MG TAB.ER.24 4.5 MG PO (08:21)
[2024-04-11] MEDS: Furosemide 20 MG TABLET PO (08:21)
[2024-04-11] MEDS: Atorvastatin Calcium 40 MG TABLET PO (08:22)
[2024-04-11] MEDS: Acetaminophen 325 MG TABLET 650 MG PO (08:22)
[2024-04-11] MEDS: Multivitamin TABLET 1 TAB PO (08:22)
[2024-04-11] MEDS: Apixaban 5 MG TABLET PO (08:22)
[2024-04-11] MEDS: Carbidopa/Levodopa 25/100 TABLET 0.5 TAB PO (08:23)
[2024-04-11] MEDS: Benztropine Mesylate 0.5 MG TABLET PO (08:24)
[2024-04-11] MEDS: TiZANidine HCL 4 MG TABLET 2 MG PO (08:24)
[2024-04-11] MEDS: QUEtiapine Fumarate 50 MG TABLET PO (08:24)
[2024-04-11] MEDS: Ferrous Sulfate 324 MG TABLET.DR PO (08:25)
[2024-04-11] MEDS: cloNIDine HCL 0.1 MG TABLET PO (08:25)
[2024-04-11] MEDS: Cholestyramine (With Sugar) 4 GM POWD.PACK PO (08:28)
[2024-04-11] MEDS: Lidocaine 4 % Patch ADH..PATCH 1 PATCH TRANSDERMA (08:43)
[2024-04-11] MEDS: Loperamide HCl 2 MG CAPSULE 4 MG PO (11:21)
== END 2024-04-11 11:39 | disposition other institution (70) | DRG 885 ==
PROVIDERS: Social Worker; Admitting Provider Psychiatry & Neurology Psychiatry; PCP Physician Assistant; Visit Provider Clinical Nurse Specialist Psychiatric/Mental Health, Adult
DX: F25.9 Schizoaffective disorder, unspecified (principal); F41.1 Generalized anxiety disorder; K21.9 Gastro-esophageal reflux disease without esophagitis; B36.9 Superficial mycosis, unspecified; E11.9 Type 2 diabetes mellitus without complications; E78.5 Hyperlipidemia, unspecified; G20.A1 Parkinson's disease without dyskinesia, without mention of fluctuations; F43.10 Post-traumatic stress disorder, unspecified; K58.9 Irritable bowel syndrome, unspecified; Z86.711 Personal history of pulmonary embolism; Z86.718 Personal history of other venous thrombosis and embolism; Z91.51 Personal history of suicidal behavior; Z91.52 Personal history of nonsuicidal self-harm; Z79.01 Long term (current) use of anticoagulants; Z79.84 Long term (current) use of oral hypoglycemic drugs; Z79.899 Other long term (current) drug therapy
CPT/HCPCS: 36415; 80053; 80061; 82565; 82607; 82746; 82947; 83036; 83735; 84439; 84443; 85025; 87086; 93005

== ENCOUNTER 2024-03-27 15:39 | Outpatient (BNV) | payer OTHER, SELFPAY | END 2024-04-02 15:29 | PROVIDERS: Admitting Provider Psychiatry & Neurology Psychiatry; PCP Physician Assistant; Visit Provider Internal Medicine Cardiovascular Disease | DX: E83.42 Hypomagnesemia (principal) | CPT/HCPCS: 93010 ==

== ENCOUNTER → 2024-03-27 15:39 | Outpatient (BNV) | payer OTHER, SELFPAY | PROVIDERS: Admitting Provider Psychiatry & Neurology Psychiatry; PCP Physician Assistant; Visit Provider Student in an Organized Health Care Education/Training Program | DX: Z00.8 Encounter for other general examination (principal) | CPT/HCPCS: 99429; 99499 ==

== ENCOUNTER → 2024-03-27 15:39 | Outpatient (BNV) | payer OTHER, SELFPAY | PROVIDERS: Admitting Provider Psychiatry & Neurology Psychiatry; PCP Physician Assistant; Visit Provider Clinical Nurse Specialist Psychiatric/Mental Health, Adult | DX: F25.9 Schizoaffective disorder, unspecified (principal); F43.10 Post-traumatic stress disorder, unspecified | CPT/HCPCS: 90792; 99231; 99232 ==